=== PATIENT | female | born 1945 | race Caucasian/White ===

== ENCOUNTER → 2016-05-06 | Outpatient (CLI) | payer MEDICARE, OTHER ==
[~2016-05-06] MED LIST: IMMUNE GLOBULIN (HUMAN-IGG) 20 GM in EMPTY BAG 1 BAG IV ONE; SODIUM CHLORIDE 0.9% 250 ML in EMPTY BAG 1 BAG IV PRN; SODIUM CHLORIDE 0.9% 500 ML in EMPTY BAG 1 BAG IV PRN
[2016-05-06 09:16] VITALS: TEMP 98.2
[2016-05-06 09:46] VITALS: PULSE 56
[2016-05-06 10:14] LABS: Anion Gap 12 mmol/L; Blood Urea Nitrogen 19 mg/dL (7-17); Calcium 9.9 mg/dL (8.4-10.2); Carbon Dioxide 28 mmol/L (22-30); Chloride 102 mmol/L (98-107); Glucose 207 mg/dL (74-99); Non-African American GFR(MDRD) >60 (>60 ml/min/1.73 sqM); Potassium 4.2 mmol/L (3.5-5.1); Sodium 142 mmol/L (137-145)
[2016-05-06 10:21] VITALS: BP 133/71; RESP 16
[2016-05-06 13:41] LABS: Calcium 9.8 mg/dL (8.4-10.2); Potassium 4.2 mmol/L (3.5-5.1)
== END | disposition home or self-care (01) ==
LOC: PROCWHC3 08:50
PROVIDERS: ATTEND Psychiatry & Neurology Neurology
DX: G61.81 Chronic inflammatory demyelinating polyneuritis (principal)
CPT/HCPCS: 80048; 96365; 96366; 36591; J1642; J1459

== ENCOUNTER → 2016-06-17 | Outpatient (CLI) | payer MEDICARE, OTHER ==
[2016-06-17 09:13] VITALS: TEMP 98.3
[2016-06-17 09:35] LABS: Basophils # (A) 0.1 k/uL (0-0.2); Basophils % (A) 1 %; CH 31.4; CHCM 35.1; Eosinophils # (A) 0.1 k/uL (0-0.7); Eosinophils % (A) 3 %; HDW 2.98; HGB 12.6 gm/dL (11.4-16.0); Luc # (Auto) 0.17; Luc % (Auto) 4; Lymphocytes # (A) 1.6 k/uL (1.0-4.8); Lymphocytes % (A) 36 %; MCH 30.8 pg (25.0-35.0); MCHC 34.2 g/dL (31.0-37.0); MCV 89.9 fL (80.0-100.0); Mean Platelet Volume 7.4; Monocytes # (A) 0.3 k/uL (0-1.0); Monocytes % (A) 7 %; Neutrophils # (A) 2.2 k/uL (1.3-7.7); Neutrophils % (A) 50 %; RBC 4.11 m/uL (3.80-5.40); RDW 12.8 % (11.5-15.5); WBC 4.4 k/uL (3.8-10.6); WBC (Perox) 4.44
[2016-06-17 09:54] VITALS: BP 138/58; PULSE 47; RESP 16
[2016-06-17 10:02] LABS: ALT 24 U/L (9-52); AST 25 U/L (14-36); Alkaline Phosphatase 170 U/L (38-126); Anion Gap 10 mmol/L; Blood Urea Nitrogen 15 mg/dL (7-17); Calcium 9.6 mg/dL (8.4-10.2); Carbon Dioxide 29 mmol/L (22-30); Chloride 101 mmol/L (98-107); Glucose 119 mg/dL (74-99); Non-African American GFR(MDRD) >60 (>60 ml/min/1.73 sqM); Potassium 4.4 mmol/L (3.5-5.1); Sodium 140 mmol/L (137-145); Total Bilirubin 0.6 mg/dL (0.2-1.3); Total Protein 7.3 g/dL (6.3-8.2); Uric Acid 4.5 mg/dL (3.7-7.4)
[2016-06-17 10:30] LABS: Iron 78 ug/dL (37-170)
[2016-06-17 10:40] LABS: % Iron Saturation 25.8 % (20-50); Total Iron Binding Capacity 302 ug/dL (265-497)
[2016-06-17 11:56] LABS: Appearance,Urine Clear (Clear); Bilirubin,Urine Negative (Negative); Glucose,Urine (UA) Negative (Negative); Ketones,Urine Negative (Negative); Leukocyte Esterase,Urine Small (Negative); Nitrite,Urine Negative (Negative); PH, Urine 6.5 (5.0-8.0); Particle Count 994; Protein,Urine Negative (Negative); Specific Gravity,Urine 1.008 (1.001-1.035); Squamous Epithelial Cell,Urine 1 /hpf (0-4); UA Billing (MACRO vs. MICRO) MICRO; Urobilinogen,Urine <2.0 mg/dL (<2.0); WBC,Urine 1 /hpf (0-5)
[2016-06-17 14:22] LABS: Anion Gap 10 mmol/L; Blood Urea Nitrogen 14 mg/dL (7-17); Calcium 9.7 mg/dL (8.4-10.2); Carbon Dioxide 27 mmol/L (22-30); Chloride 103 mmol/L (98-107); Glucose 134 mg/dL (74-99); Non-African American GFR(MDRD) 53 (>60 ml/min/1.73 sqM); Potassium 4.2 mmol/L (3.5-5.1); Sodium 140 mmol/L (137-145)
== END | disposition home or self-care (01) ==
LOC: PROCWHC3 08:44
PROVIDERS: ATTEND Psychiatry & Neurology Neurology
DX: G61.81 Chronic inflammatory demyelinating polyneuritis (principal); N28.9 Disorder of kidney and ureter, unspecified
CPT/HCPCS: 80053; 80048; 82728; 83540; 83550; 83735; 84100; 84550; 85025; 81001; 82306; 83970; 87086; 96365; 96366; 36591; J1642; J1459

== ENCOUNTER → 2016-08-18 | Outpatient (CLI) | payer MEDICARE, OTHER ==
[2016-08-18 14:08] VITALS: BP 128/61; PULSE 64; RESP 16; TEMP 98.3; BMI 43.1
--- NOTE | 2016-08-18 17:30 | PN ---
CHIEF COMPLAINT: Morbid obesity. INTERVAL HISTORY: Patient has had poor follow-up. She was last seen about a year ago and her band was emptied at that time for other medical issues. She believes that she has a 4 mL band and that she had a total of 4 mL evacuated at that time. The patient has had some weight gain of approximately 10 pounds since last year. She would like to try a band adjustment at this time. PHYSICAL EXAM: Abdomen is soft, nontender, nondistended. IMPRESSION: Morbid obesity. PLAN: Will provide additional lap band adjustment today. A total of 2 mL was added. The patient was unable to tolerate her water at that time and it was backed off to 1 mL. The patient is now tolerating her water without difficulty and will be discharged home with plans for outpatient follow-up in 1 to 2 months.
== END ==
LOC: BARWHC3 13:26
PROVIDERS: ATTEND Surgery
DX: E66.01 Morbid (severe) obesity due to excess calories (principal)
CPT/HCPCS: 99212

== ENCOUNTER 2016-10-26 07:00 | Day surgery (SDC) | payer MEDICARE ==
[2016-10-20 12:44] VITALS: BMI 40.7
[2016-10-26] MEDS ORDERED: LACTATED RINGERS 1,000 ML IV ONE (07:30)
[2016-10-26 07:38] VITALS: RESP 16; TEMP 98
[2016-10-26 07:42] LABS: Glucose,Whole Blood 134 mg/dL (75-99)
--- NOTE | 2016-10-26 08:02 | P.PCN ---
Date of Procedure: 10/26/16 Preoperative Diagnosis: Postoperative Diagnosis: Procedure(s) Performed: Implants: Surgeon: Sunny Camarena Pathology: none sent Condition: stable Disposition: PACU Indications for Procedure: Operative Findings: Description of Procedure: PREOPERATIVE DIAGNOSIS: 1-Bilateral sacroiliitis. 2-Lumbar spondylosis POSTOPERATIVE DIAGNOSIS:. 1-Bilateral sacroiliitis. 2-Lumbar spondylosis PROCEDURES: Bilateral Sacroiliac joint steroid injection with fluoroscopic guidance ANESTHESIA: Local with 1% lidocaine; conscious sedation EBL: Minimal. PROCEDURE INDICATIONS: This patient with a history of low back pain secondary to sacroiliitis and lumbar DDD unresponsive to conservative management. PROCEDURE DESCRIPTION: The patient was seen and identified in the preoperative area. Risks, benefits, complications, and alternatives were discussed with the patient (including but not limited to incomplete pain relief, bleeding, infection, nerve damage, and allergies to medications), the patient agreed to proceed with the procedure and signed the consent after all questions were answered. Patient was taken to the OR and time out was completed to verify proper patient , position, laterality of pain, and allergies. Pt was placed in the prone position and a pillow was placed under the abdomen to reduce lumbar lordosis. The lumbosacral area was prepped and draped in the usual sterile fashion. Critical pause was taken. Vital signs were closely monitored during the procedure. The fluoroscopic camera was placed in contralateral oblique view and right sacroiliiac joint lower pole was identified. After local infiltration with 1% lidocaine 2 ml, Subsequently, a 22-gauge 3.5 inch spinal needle was introduced into the posteroinferior aspect of the right sacroiliac joint under direct fluoroscopic visualization. Subsequently, 3 ml of a solution of a total of 6 ml solution containing total 5 mL of 0.5% preservative-free bupivicaine mixed with 40 mg of Kenalog was injected after negative aspiration for CSF, blood, and air and negative for paresthesia. The entire procedure was repeated on the left side as above. Needle was withdrawn intact. Skin was cleansed, and bandages were applied. COMPLICATIONS: None. COMMENTS: DISPOSITION / PLANS: The patient was placed in a supine position and transferred to the recovery area in a stable condition for observation and was discharged from the recovery room after meeting discharge criteria. Home discharge instructions given to the patient by the staff. The patient was reexamined prior to discharge and there were no issues. The patient will schedule a follow up procedure in 2-4 weeks. Please note that the patient takes daily steroids.
[2016-10-26] MEDS ORDERED: IV FLUID CONTINUATION 1,000 ML IV ONE (08:08)
--- NOTE | 2016-10-26 08:34 | FL ---
EXAMINATION TYPE: FL guided pain mgmt statistic DATE OF EXAM: 10/26/2016 CLINICAL HISTORY: Low back in bilateral sacroiliac joint pain. TECHNIQUE: Fluoroscopy. COMPARISON: None. FINDINGS: Fluoroscopic guidance was provided during pain relief procedure performed by Dr. Camarena . A total of 10 seconds of fluoroscopic time was utilized during the procedure and 3 spot images are ac quired. Images acquired shows needle localization at level of bilateral sacroiliac joints. IMPRESSION: As Above.
[2016-10-26 08:48] VITALS: BP 104/55; PULSE 47
== END 2016-10-26 09:26 | disposition home or self-care (01) ==
LOC: ORPAIN 07:00
PROVIDERS: ATTEND Anesthesiology
DX: M46.1 Sacroiliitis, not elsewhere classified (principal); M47.816 Spondylosis without myelopathy or radiculopathy, lumbar region; M51.36 Other intervertebral disc degeneration, lumbar region; I10 Essential (primary) hypertension; E78.5 Hyperlipidemia, unspecified; K21.9 Gastro-esophageal reflux disease without esophagitis; Z91.048 Other nonmedicinal substance allergy status; Z88.7 Allergy status to serum and vaccine; Z88.0 Allergy status to penicillin; Z88.5 Allergy status to narcotic agent; Z88.8 Allergy status to other drugs, medicaments and biological substances; Z79.52 Long term (current) use of systemic steroids
CPT/HCPCS: 99152; J2250; J3301; Q9965; J3010; G0260

== ENCOUNTER 2016-11-23 07:31 | Day surgery (SDC) | payer MEDICARE ==
[2016-11-17 10:38] VITALS: BMI 40.2
[~2016-11-23 07:31] MED LIST changes: -IMMUNE GLOBULIN (HUMAN-IGG) 20 GM in EMPTY BAG 1 BAG IV ONE; +LACTATED RINGERS 1,000 ML IV SCH; -SODIUM CHLORIDE 0.9% 250 ML in EMPTY BAG 1 BAG IV PRN; -SODIUM CHLORIDE 0.9% 500 ML in EMPTY BAG 1 BAG IV PRN
[2016-11-23 07:54] VITALS: RESP 16; TEMP 97.9
--- NOTE | 2016-11-23 08:37 | P.PCN ---
Date of Procedure: 11/23/16 Preoperative Diagnosis: Postoperative Diagnosis: Procedure(s) Performed: Preoperative diagnoses= 1-bilateral sacroiliitis. 2-lumbar spondylosis Postoperative diagnoses= same as preoperative diagnosis. Procedure= bilateral sacroiliac joint steroid injection under fluoroscopic guidance (.# 2 ) Anesthesia= conscious sedation with Versed 2 mg and fentanyl 100 micrograms and local infiltration with lidocaine 1% 4 ml Estimated blood loss=minimal. Procedure indication= the patient had a history of severe chronic low back pain , diagnosed with sacroiliitis and lumbar spondylosis with lumbosacral facet arthropathy unresponsive to conservative treatment. Procedure description= the patient was seen and identified in the preoperative holding area, risks and benefits and alternative of the procedure and possible complications discussed with the patient, and he agreed with the preceding, patient signed the consent, an IV was started, and vital signs were monitored and were stable throughout the procedure, patient was placed in the prone position or table and the lumbosacral area was prepped and draped with a sterile fashion, vital signs were closely monitored during the procedure, the fluoroscopy camera was placed in the contralateral oblique view on the right sacroiliac joint and the lower part of the joint was identified, local infiltration of the skin and subcutaneous tissue with lidocaine 1% 2 mL then a 22-gauge Quincke-type spinal needle advanced slowly under fluoroscopy and placed in the posterior and inferior border of the right sacroiliac joint, placement confirmed with AP and lateral view, and after appropriate needle placement confirmed and after negative aspiration for heme and CSF and there was no paresthesia during the injection, 3 ml of Marcaine 0.5% and 40 mg of Kenalog injected after negative aspiration, the needle removed, and the entire same procedure was repeated for the left sacroiliac joint Patient tolerated the procedure well without any complication, The patient returned to supine position after the back was cleaned and a Band- Aid applied, the patient transported to recovery room in stable condition and he was monitored for 30 minutes before he was discharged home and then patient was reexamined before going home and patient was discharged in stable condition and patient will follow up with the pain clinic in a few weeks Implants: Indications for Procedure: Operative Findings: Description of Procedure:
[2016-11-23] MEDS ORDERED: IV FLUID CONTINUATION 1,000 ML IV ONE (08:43)
[2016-11-23 08:47] VITALS: PULSE 50
--- NOTE | 2016-11-23 08:57 | FL ---
EXAMINATION TYPE: FL guided pain mgmt statistic DATE OF EXAM: 11/23/2016 COMPARISON: NONE HISTORY: Sacroiliac joint pain TECHNIQUE: Fluoroscopy. FINDINGS/IMPRESSION: Fluoroscopic guidance was provided during procedure performed by Dr. Aguilar. A total of 5 seconds of fluoroscopic time was utilized during the procedure and 2 spot images was ac quired.
[2016-11-23 08:58] VITALS: BP 141/74
== END 2016-11-23 09:57 | disposition home or self-care (01) ==
LOC: ORPAIN 07:31
PROVIDERS: ATTEND Specialist
DX: G89.29 Other chronic pain (principal); M46.1 Sacroiliitis, not elsewhere classified; M47.9 Spondylosis, unspecified; M46.96 Unspecified inflammatory spondylopathy, lumbar region; I10 Essential (primary) hypertension; E78.5 Hyperlipidemia, unspecified; K21.9 Gastro-esophageal reflux disease without esophagitis; G61.0 Guillain-Barre syndrome; Z88.5 Allergy status to narcotic agent; Z88.0 Allergy status to penicillin; Z88.7 Allergy status to serum and vaccine; Z88.8 Allergy status to other drugs, medicaments and biological substances; Z91.048 Other nonmedicinal substance allergy status; Z79.52 Long term (current) use of systemic steroids
CPT/HCPCS: 99152; J2250; J3301; J3010; G0260

== ENCOUNTER → 2017-01-05 | Outpatient (CLI) | payer MEDICARE, OTHER ==
[2017-01-05 11:39] VITALS: BP 130/62; PULSE 67; RESP 16
--- NOTE | 2017-01-05 11:54 | P.PN ---
Progress Note - Text Progress Note Date: 01/05/17 Patient returns for followup for chronic back pain with radiation to hips. Patient recently underwent bilateral SIJ injection x 2, which provided > 80% pain relief since procedure. Patient continues on [place] medications for pain with good relief. Patient denies adverse drug effects from medications. Today , pt denies new-onset weakness, bowel/bladder incontinence, or any other signs or symptoms of cauda equina syndrome. There are no signs of acute intoxication, and no indications of medication diversion or overuse. In addition to above, 13-point review of systems is also negative for chest pain , shortness of breath, changes in vision, changes in hearing, new onset weakness , abdominal pain, diarrhea, extreme fatigue, malaise, fever, skin changes, homicidal or suicidal ideation, or bowel or bladder incontinence. Vital Signs: Reviewed in EMR Gen: WDWN, AAOx3, NAD HEENT: NCAT, EOMI, hearing grossly normal Pulm: resp unlabored Abd: soft, NT, ND Neck: supple, trachea midline ROM in flexion lumbar spine: reduced ROM in extension lumbar spine: reduced Lumbar paravertebral tenderness: + Facet loading: + bilateral SI joint tenderness: + bilateral Long's test: + bilateral Straight leg raise: neg Lower extremity: decreased ROM dorsiflexion/plantarflexion strength, hip flexion/extension, and knee flexion/extension secondary to pain Neuro: CN II-XII grossly intact, muscle strength lower extremities PRESERVED Imaging: Reviewed in EMR Assessment: 1. SIJ dysfunction 2. chronic pain syndrome 3. lumbar PLPS Plan: 1. Explanation: Opioid and psychological risk scores were reviewed. Diagnoses , prognoses, and multiple treatment options including but not limited to physical therapy, interventional therapies, adjuvant medical therapies, narcotic medication therapies, and surgery were discussed with the patient and all questions were answered to the patient's satisfaction. 2. Opioid agreement: no opioids prescribed today 3. Counseling: The patient was counseled extensively on BODY MASS INDEX, EXERCISE. Specifically, the patient was instructed regarding the importance of weight control, and exercise in the context of both chronic pain and overall health. 4. Procedures: none for now 5. Consultations: None 6. Investigations: None 7. Medications: None 8. Disposition: f/u for re-eval in 8 weeks PQRS measures: 1-Patient's medications are documented in the chart. 2-Tobacco use is negative 3-Patient has not had a pneumococcal vaccine. 4-Advanced care planning discussed, patient unable to give. 5-Opioid contract signed with the patient. 6-Pain positive, follow-up visit or procedure scheduled 7-Patient's blood pressure measured and documented, and patient will follow up with the primary care due to hypertension. 8-Patient's weight was measured, and body mass index ABOVE the normal limits, and counseling was done. Patient instructed to follow up with PCP. 9-Patient WAS NOT identified as an unhealthy alcohol user.
== END | disposition home or self-care (01) ==
LOC: PNWHC3 11:02
PROVIDERS: ATTEND Anesthesiology
DX: M96.1 Postlaminectomy syndrome, not elsewhere classified (principal); M53.3 Sacrococcygeal disorders, not elsewhere classified; G89.4 Chronic pain syndrome; Z79.899 Other long term (current) drug therapy
CPT/HCPCS: 99211

== ENCOUNTER 2017-04-13 07:50 | Day surgery (SDC) | payer MEDICARE, OTHER ==
[2017-04-06 15:32] VITALS: BMI 41.9
[2017-04-13 08:15] VITALS: RESP 18; TEMP 98
[2017-04-13] MEDS ORDERED: LACTATED RINGERS 1,000 ML IV ONE (08:32)
[2017-04-13] MEDS ORDERED: LACTATED RINGERS 1,000 ML IV SCH (08:45)
--- NOTE | 2017-04-13 09:19 | P.PCN ---
Date of Procedure: 04/13/17 Surgeon: Sunny Camarena Pathology: none sent Condition: stable Disposition: PACU Description of Procedure: PREOPERATIVE DIAGNOSIS: 1-Bilateral sacroiliitis. POSTOPERATIVE DIAGNOSIS:. 1-Bilateral sacroiliitis. PROCEDURES: RIGHT Sacroiliac joint steroid injection with fluoroscopic guidance ANESTHESIA: Local with 1% lidocaine; conscious sedation EBL: Minimal. PROCEDURE INDICATIONS: This patient with a history of low back pain secondary to RIGHT sacroiliitis and lumbar DDD unresponsive to conservative management; no use of blood thinners. PROCEDURE DESCRIPTION: The patient was seen and identified in the preoperative area. Risks, benefits, complications, and alternatives were discussed with the patient (including but not limited to incomplete pain relief, bleeding, infection, nerve damage, and allergies to medications), the patient agreed to proceed with the procedure and signed the consent after all questions were answered. Patient was taken to the OR and time out was completed to verify proper patient , position, laterality of pain, and allergies. Pt was placed in the prone position and a pillow was placed under the abdomen to reduce lumbar lordosis. The lumbosacral area was prepped and draped in the usual sterile fashion. Critical pause was taken. Vital signs were closely monitored during the procedure. The fluoroscopic camera was placed in contralateral oblique view and right sacroiliiac joint lower pole was identified. After local infiltration with 1% lidocaine 2 ml, subsequently, a 22-gauge 3.5 inch spinal needle was introduced into the posteroinferior aspect of the right sacroiliac joint under direct fluoroscopic visualization. Subsequently, 4 ml of a solution of a total of 4 ml solution containing total 3 mL of 0.5% preservative-free bupivicaine mixed with 40 mg of Kenalog was injected after negative aspiration for CSF, blood, and air and negative for paresthesia. Needle was withdrawn intact. Skin was cleansed, and bandages were applied. COMPLICATIONS: None. COMMENTS: DISPOSITION / PLANS: The patient was placed in a supine position and transferred to the recovery area in a stable condition for observation and was discharged from the recovery room after meeting discharge criteria. Home discharge instructions given to the patient by the staff. The patient was reexamined prior to discharge. The patient will schedule a follow up in clinic in 2-4 weeks.
[2017-04-13] MEDS ORDERED: IV FLUID CONTINUATION 1,000 ML IV ONE (09:27)
[2017-04-13 09:44] VITALS: BP 137/69; PULSE 50
[2017-04-13] MEDS ORDERED: HEPARIN SODIUM,PORCINE 100 UNIT/ML 5 ML VIAL IV ONE (09:56)
--- NOTE | 2017-04-14 13:16 | FL ---
EXAMINATION TYPE: FL guided pain mgmt statistic DATE OF EXAM: 04/13/2017 COMPARISON: NONE HISTORY: Sacroiliac joint pain TECHNIQUE: Fluoroscopy. FINDINGS/IMPRESSION: Fluoroscopic guidance was provided during procedure performed by Dr. Camarena. A total of 18 seconds of fluoroscopic time was utilized during the procedure and 2 spot images was acqu ired.
== END 2017-04-13 10:14 | disposition home or self-care (01) ==
LOC: ORPAIN 07:50
PROVIDERS: ATTEND Anesthesiology
DX: M46.1 Sacroiliitis, not elsewhere classified (principal); M51.36 Other intervertebral disc degeneration, lumbar region; I10 Essential (primary) hypertension; D64.9 Anemia, unspecified; Z79.82 Long term (current) use of aspirin; Z91.041 Radiographic dye allergy status; Z88.0 Allergy status to penicillin; Z88.8 Allergy status to other drugs, medicaments and biological substances; Z91.09 Other allergy status, other than to drugs and biological substances
CPT/HCPCS: J2250; J1642; J3301; Q9965; J3010; G0260; 27096

== ENCOUNTER → 2017-05-13 | Outpatient (CLI) | payer MEDICARE, OTHER ==
[2017-05-13 14:08] VITALS: BP 136/85; PULSE 61; RESP 16
--- NOTE | 2017-05-13 14:59 | P.PN ---
Subjective Progress Note Date: 05/13/17 This is follow-up visit for this patient with a history of severe and chronic low back pain secondary to lumbar degenerative disc disease, lumbar facet arthropathy, and sacroiliitis and sacroiliac joint dysfunction ,we have done , bilateral sacroiliac instability injections 2 , she'll get excellent pain relief for short-term she had more than 80% decrease in her low back pain Currently she is complaining of severe low back pain mainly on the right side , radiated to the buttock area patient currently on [place] 10/325 every 6 hours when necessary , Neurontin 300 mg twice a day Patient denies any side effects of the medication, denies excessive drowsiness or sleepiness, denies suicidal ideation, and reports that the current pain medication is NOT helping To control the pain and improve activity of daily living . Patient denies any motor or sensory deficit, denies change in bowel movement or urination, patient denies any fever or night sweats and patient here for follow-up visit and medication refill Objective - Vital Signs Vital signs: Vital Signs Temp Pulse 61 05/13/17 14:02 Resp 16 05/13/17 14:02 BP 136/85 05/13/17 14:02 Pulse Ox 97 05/13/17 14:02 Intake & Output 05/12/17 05/13/17 05/13/17 18:59 06:59 18:59 Weight 115.666 kg - Exam Physical Examinations : 1-Constitutiona : Cooperative , not in acute distress . 2-HEENT : nech ; supple , no Lymphadenopathy , normal thyroid size . eyes : no ptosis , no icterus, no photophobia . ENT : normal of hearing , normal oropharynx , no Thrush . 3- Respiratory : Chest clear to auscultations Bilaterally , no wheezing , no Rhonchi . 4- Cardiovascular : regular rate and rhythem , S1 , S2 , no S3 , no S4. 5- Gastrointestinal : abdomen soft no tenderness , bowel sounds positive all four quadrents , no organomegally . 6- Genitourinary : Defferred . 7- neurologic : Cranial nerve II to XII intact , no focal neurological deffecit . 8-psychatric : alert , oriented X 3 , appropriate affect , intact judgment and insight . 9-Lymphatic : no Lymphadenopathy . 10- musculoskeltal : , Lumber spine = normal moter stegnth lower extremities ,thigh and legs .5/5 deep tendon reflexes : normal Knee Jerk , normal ankle Jerk . lumber facet Loading Test positive strait leg raising test positive at 30 degree Right , positve at 30 degree Left Fabere test positive Right and positive Left Sever tenderness over the Sacroiliac joint on the Right side Assessment and Plan Plan: Assessment and plan= severe low back pain secondary to lumbar spondylosis, sacroiliac joint steroid injection, sacroiliac joint dysfunction She had excellent pain relief after the bilateral sacroiliac joint steroid injection she had more than 80% decrease in her pain Current 3 she reported that most of her pain in the right side low back area and right buttock area She will be good candidate to have radiofrequency ablation of the right sacroiliac joint , we will schedule her to have radiofrequency ablation of the L5-S1 dorsal ramus , and RFA of the lateral branches of S1 ,S2 and S3 Plan patient should continue her current pain medication [place] 10/325 every 6 hours and Neurontin 300 mg 3 times a day she is getting prescriptions from her primary care Time with Patient: Less than 30
== END | disposition home or self-care (01) ==
LOC: PNWHC3 13:55
PROVIDERS: ATTEND Specialist
DX: M47.816 Spondylosis without myelopathy or radiculopathy, lumbar region (principal); M53.3 Sacrococcygeal disorders, not elsewhere classified; Z79.891 Long term (current) use of opiate analgesic
CPT/HCPCS: 99211

== ENCOUNTER 2017-06-16 07:54 | Day surgery (SDC) | payer MEDICARE, OTHER ==
[2017-06-14 09:02] VITALS: BMI 43.2
[2017-06-16 08:47] VITALS: TEMP 98.1
[2017-06-16] MEDS ORDERED: IV FLUID CONTINUATION 1,000 ML IV ONE (09:55)
[2017-06-16 10:08] VITALS: RESP 16
--- NOTE | 2017-06-16 10:12 | FL ---
EXAMINATION TYPE: FL guided pain mgmt statistic DATE OF EXAM: 06/16/2017 COMPARISON: NONE HISTORY: Radiofrequency right lumbar right back pain. TECHNIQUE: Fluoroscopy. FINDINGS/IMPRESSION: Fluoroscopic guidance was provided during procedure performed by Dr. Aguilar. A total of 50 seconds of fluoroscopic time was utilized during the procedure and 8 spot images was a cquired.
[2017-06-16 10:21] VITALS: BP 129/79; PULSE 56
--- NOTE | 2017-06-16 10:31 | P.PCN ---
Date of Procedure: 06/16/17 Procedure(s) Performed: PREOPERATIVE DIAGNOSIS: 1-Lumbosacral spondylosis with facet arthropathy without myelopathy. 2- sacroiliit. 3-sacroiliac joint dysfunction. post operative Diagnosis: Same as Diagnoses. PROCEDURES: 1- Right radiofrequency thermocoagulation/ablation of the L5 dorsal ramus. 2- Right multi-site radiofrequency thermocoagulation/ablation of the S1, S2, lateral branchs. The procedure was performed using fluoroscopic guidance during needle placement to assure proper position and maximize safety . ANESTHESIA: LOCAL ANESTHESIA = moderate sedation with intravenous versed 2 mg and Fentanyle 100 mcg EBL: NONE INDICATION/MEDICAL NECESSITY: History of low back pain secondary to bilateral sacroiliitis and lumbosacral arthropathy unresponsive to more conservative treatments. The patient reported more than 50% relief of pain symptoms following 2 previous diagnostic blocks with Bupivacaine. PROCEDURE DESCRIPTION: The patient was seen and identified in the preoperative area. Risks, benefits, complications, and alternatives were discussed with the patient. The patient agreed to proceed with the procedure and signed the consent. Vital signs were checked before and after the procedure and they remained stable. Patient ambulated to the procedure room and time out was completed. The patient was placed in the prone position on the procedure table and a pillow was placed under the abdomen to reduce lumbar lordosis. The lumbosacral area was prepped and draped in the usual sterile fashion. Critical pause was taken. L5 Dorsal Ramus RF: Using right oblique fluoroscopy, the junction of the transverse process and the superior articular process of the right S1 vertebra, which correspond to the fluoroscopic image of the "eye of the Rodríguez dog" was identified. Subsequently, a 15-cm 20 -gauge radiofrequency cannula with a 10-mm active tip was advanced under fluoroscopic guidance until contact was made with periosteum. At this level, the Sensory testing of the L5 dorsal ramus was performed at 50 Hz and 0 to 1 volt with production of concordant pain starting at 0.5 volt. Motor stimulation was done at 2.5 Hz with stimulation of mulitifidus muscle contration . No radicular symptoms or paresthesias were produced during the testing. Subsequently, the L5 dorsal ramus was subjected to a radiofrequency ablation at 80 degree celsius for 90 seconds . after 0.5% Bupivacaine 1 ml injected at each level after negative aspirations . The needle was withdrawn intact . . S1, S2 Lateral Branch RF: The lateral margins of the Right S1, S2, foramina were identified using AP fluoroscopy. Under fluoroscopic guidance, three 10-cm 20 -gauge radiofrequency cannula with a 10-mm active tip were inserted at 8-10 mm peripheral to the posterior S1 foramen, at various locations using clock-face coordinates. The center of the clock was registered at the lateral margin of the foramen. The 2: 30, 4:00, and 5:30 oclock positions were used. At this level, the sensory testing of the S1 lateral branch was performed at 50 Hz and 0 to 1 volt at the three levels with production of concordant pain starting at 0.5 volt. Motor stimulation was done at 2.5 Hz. No radicular symptoms or paresthesias were produced during the testing. Subsequently, the S1 lateral branch was subjected to a radiofrequency ablation at a mode of 90 seconds at 80 degrees Celsius at the 3 levels after negative motor and sensory testing and after injecting 0.5 ml of preservative free Bupivacaine 0.5 %. The same procedure was performed at the level of the S2 foramen. (I was not able to visualize the S3 foraminal for this reason the radiofrequency of the lateral branches of S3 was not done ) COMPLICATIONS: The patient tolerated the procedure well without any acute complications. DISPOSTION/PLAN: The patient ambulated to the recovery area after the procedure in a stable condition for observation. Patient was reexamined prior to discharge. Patient was observed for 30 minutes in the recovery area and was discharged home, accompanied by an adult, after meeting discharged criteria. Discharge instructions were give to the patient by the staff. Patient was specifically instructed not to drive today and to rest for the rest of the day. The patient will schedule a follow up visit in the clinic in weeks or earlier if needed.
== END 2017-06-16 10:45 | disposition home or self-care (01) ==
LOC: ORPAIN 07:54
PROVIDERS: ATTEND Specialist
DX: M47.817 Spondylosis without myelopathy or radiculopathy, lumbosacral region (principal); M46.1 Sacroiliitis, not elsewhere classified; M53.3 Sacrococcygeal disorders, not elsewhere classified; M96.1 Postlaminectomy syndrome, not elsewhere classified; I10 Essential (primary) hypertension; M19.90 Unspecified osteoarthritis, unspecified site; G61.0 Guillain-Barre syndrome; K21.9 Gastro-esophageal reflux disease without esophagitis; E03.9 Hypothyroidism, unspecified; Z88.5 Allergy status to narcotic agent; Z88.0 Allergy status to penicillin; Z88.7 Allergy status to serum and vaccine; Z88.8 Allergy status to other drugs, medicaments and biological substances; Z91.09 Other allergy status, other than to drugs and biological substances
CPT/HCPCS: 64640 ×2; 64635; J2250; J3301; J1642; J3010; 99152; 99153

== ENCOUNTER → 2017-07-22 | Outpatient (CLI) | payer MEDICARE, OTHER ==
[2017-07-22 11:56] VITALS: BP 153/83; PULSE 56; RESP 16
--- NOTE | 2017-07-22 12:19 | P.PN ---
Subjective Progress Note Date: 07/22/17 Principal diagnosis: Postlaminectomy pain syndrome Bilateral sacroiliitis This is a 72-year-old female with history of back surgery that was done in 2014 and pain that starts in the right buttock and goes across her lower back and down her right leg to the right knee with burning sensation. The patient had RFA on both sacroiliac joints which gave her only a few days of pain relief as she states. Her pain is mostly when she walks for too long and twist back. She has been taking [place] by her primary care physician. She also has a history of Guillain-Nieto and for the last 6 weeks she's been feeling some "feathery" sensation in her legs. Objective - Vital Signs Vital signs: Vital Signs Temp Pulse 56 L 07/22/17 11:46 Resp 16 07/22/17 11:46 BP 153/83 07/22/17 11:46 Pulse Ox 96 07/22/17 11:46 Intake & Output 07/21/17 07/22/17 07/22/17 18:59 06:59 18:59 Weight 115.666 kg - Constitutional General appearance: Present: morbidly obese - EENT Eyes: Present: PERRLA - Respiratory Respiratory: bilateral: CTA - Cardiovascular Rhythm: regular - Neurologic Neurologic: Present: CNII-XII intact - Psychiatric Psychiatric: Present: A&O x's 3, appropriate affect, intact judgment & insight ( Neuro exam of the lower extremities showed normal muscle strength for knee flexion and extension and ankle flexion and extension. She has absent deep tendon reflexes in the lower extremities bilaterally and symmetrically. 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 The procedure was explained to the patient and her questions were answered. Time with Patient: Less than 30
== END | disposition home or self-care (01) ==
LOC: PNWHC3 11:25
PROVIDERS: ATTEND Anesthesiology
DX: M96.1 Postlaminectomy syndrome, not elsewhere classified (principal); E66.01 Morbid (severe) obesity due to excess calories; Z86.2 Personal history of diseases of the blood and blood-forming organs and certain disorders involving the immune mechanism; Z79.891 Long term (current) use of opiate analgesic
CPT/HCPCS: 99211

== ENCOUNTER → 2018-04-08 | Outpatient (CLI) | payer MEDICARE, OTHER ==
[~2018-04-08] MED LIST changes: +IMMUNE GLOBULIN IV NR; -LACTATED RINGERS 1,000 ML IV SCH; +SODIUM CHLORIDE 0.9% 500 ML 500 ML in EMPTY BAG 1 BAG IV PRN
[2018-04-08 09:28] VITALS: RESP 16; TEMP 97.9
[2018-04-08 09:57] VITALS: BP 118/70; PULSE 56
[2018-04-08 12:30] LABS: T4, Free (Free Thyroxine) 1.39 ng/dL (0.78-2.19)
== END ==
LOC: PROCWHC3 08:52
PROVIDERS: ATTEND Psychiatry & Neurology Neurology
DX: G61.81 Chronic inflammatory demyelinating polyneuritis (principal)
CPT/HCPCS: 84439; 80061; 84443; 96365; 96366; 36591; J1642; J1459

== ENCOUNTER → 2018-05-12 | Outpatient (CLI) | payer MEDICARE, OTHER ==
--- NOTE | 2018-05-12 16:29 | BD ---
EXAMINATION TYPE: Axial Bone Density DATE OF EXAM: 05/12/2018 COMPARISON: NONE CLINICAL HISTORY: 72 YR OLD FEMALE....ICD-10 CODE: OSTEOPOROSIS SCREENING. Height: 63.2 Weight: 251 FRAX RISK QUESTIONS: Glucocorticoids (More than 3mos): YES (Ex: prednisone, prednisolone, methylprednisolone, dexamethasone, and hydrocortisone). RISK FACTORS HISTORY OF: Surgery to Spine L/S SPINE SURG...WITH RODS AND SCREWS...LAST SURG 2016 Postmenopausal woman: 50 YRS OLD Lost more than 2 inches in height since high school: YES Frequent falls: UNSTEADY, USES WALKER MEDICATIONS: Prednisone or other steroids: YES, PREDNISON....FOR YRS, CHRONIC INFLAMATION, Thyroid Medications: YES, SYNTHROID, FOR ABOUT 15 + YRS Additional Medications: BP MEDS, VIT D, PAIN MEDS, Additional History: HX OF KIDNEY FAILURE...OK NOW, EM GABRIELA SYNDROME, CIPD, EXAM MEASUREMENTS: Bone mineral densitometry was performed using the vWise System. SPINE NOT SCANNED Bone mineral density about the R hip (g/cm2): 0.9222 Bone mineral density about the L hip (g/cm2): 0.949 T Score values are as follows: -----R Neck: -0.6 -----L Neck: -0.9 -----R Total: -0.7 -----L Total: -0.5 Bone mineral density FIRST BONE DENSITY SCAN......BASELINE STUDY FRAX%s: THERE IS A 11.8% CHANCE FOR A MAJOR OSTEOPOROTIC FX AND A 1.3% FOR HIP....PROBABILITY OF F X IN 10 YRS TIME Bone mineral density about the L Wrist (g/cm2): 0.702 T Score values are as follows: -----Dist. R+U: 1.2 -----Prox. R+U: 0.0 -----Radius total: 0.8 Bone mineral density BASELINE STUDY IMPRESSION: Normal (Values between +1 and -1 indicate normal bone mass). Consider repeating this study in 5 year s or sooner if there is some new clinical indication. NOTE: T-SCORE=SD OF THE YOUNG ADULT MEAN.
--- NOTE | 2018-05-16 08:13 | MM ---
Reason for exam: screening (asymptomatic). Last mammogram was performed 3 years ago. History: Patient is postmenopausal. Physical Findings: A clinical breast exam by your physician is recommended on an annual basis and results should be correlated with mammographic findings. MG Screening Mammo w CAD Bilateral CC, MLO, and XCCL view(s) were taken. Prior study comparison: May 08, 2015, bilateral MG screening mammo w CAD. November 03, 2011, bilateral digital screening mammo w/CAD. The breast tissue is heterogeneously dense. This may lower the sensitivity of mammography. No significant changes when compared with prior studies. ASSESSMENT: Benign, BI-RAD 2 RECOMMENDATION: Routine screening mammogram of both breasts in 1 year.
== END | disposition home or self-care (01) ==
LOC: RADBDWWP 08:00
PROVIDERS: ATTEND Internal Medicine
DX: Z12.31 Encounter for screening mammogram for malignant neoplasm of breast (principal); Z13.820 Encounter for screening for osteoporosis
CPT/HCPCS: 77067; 77080

== ENCOUNTER → 2018-05-20 | Outpatient (CLI) | payer MEDICARE, OTHER ==
[2018-05-20 09:35] VITALS: TEMP 97.9
[2018-05-20 09:51] VITALS: BP 113/58; PULSE 49; RESP 18
[2018-05-20 10:53] LABS: Basophils % (A) 1 %; Eosinophils # (A) 0.1 k/uL (0-0.7); Eosinophils % (A) 1 %; HCT 39.1 % (34.0-46.0); HGB 13.2 gm/dL (11.4-16.0); Lymphocytes # (A) 1.1 k/uL (1.0-4.8); Lymphocytes % (A) 22 %; MCH 31.3 pg (25.0-35.0); MCHC 33.9 g/dL (31.0-37.0); MCV 92.2 fL (80.0-100.0); Mean Platelet Volume 7.3; Monocytes # (A) 0.3 k/uL (0-1.0); Monocytes % (A) 6 %; Neutrophils # (A) 3.3 k/uL (1.3-7.7); Neutrophils % (A) 68 %; Platelet Count 197 k/uL (150-450); RBC 4.24 m/uL (3.80-5.40); RDW 13.3 % (11.5-15.5); WBC 4.8 k/uL (3.8-10.6)
[2018-05-20 11:17] LABS: Appearance,Urine Clear (Clear); Bilirubin,Urine Negative (Negative); Blood,Urine Negative (Negative); Color,Urine Colorless; Glucose,Urine (UA) Negative (Negative); Ketones,Urine Negative (Negative); Leukocyte Esterase,Urine Negative (Negative); Nitrite,Urine Negative (Negative); Protein,Urine Negative (Negative); Specific Gravity,Urine 1.006 (1.001-1.035); Urobilinogen,Urine <2.0 mg/dL (<2.0)
[2018-05-20 11:55] LABS: Uric Acid 4.2 mg/dL (3.7-7.4)
[2018-05-20 11:56] LABS: Albumin 4.5 g/dL (3.5-5.0); Calcium 10.1 mg/dL (8.4-10.2); Magnesium 1.8 mg/dL (1.6-2.3); Phosphorus 2.9 mg/dL (2.5-4.5); Potassium 4.7 mmol/L (3.5-5.1)
[2018-05-20 17:35] LABS: Iron Saturation 30.79 (12.00-45.00)
[2018-05-20 17:44] LABS: Vitamin D 25 Hydroxy 54.7 ng/mL (30.0-100.0)
[2018-05-20 19:22] LABS: Parathyroid Hormone Intact 103.9 pg/mL (14.0-72.0)
== END ==
LOC: PROCWHC3 08:24
PROVIDERS: ATTEND Psychiatry & Neurology Neurology
DX: N39.0 Urinary tract infection, site not specified (principal); M10.9 Gout, unspecified; N25.81 Secondary hyperparathyroidism of renal origin; D63.1 Anemia in chronic kidney disease; N18.2 Chronic kidney disease, stage 2 (mild); E55.9 Vitamin D deficiency, unspecified; G61.81 Chronic inflammatory demyelinating polyneuritis
CPT/HCPCS: 80048; 82728; 82040; 83540; 83550; 83735; 84100; 84550; 85025; 81003; 82306; 83970; 87086; 96365; 96366; 36591; J1642; J1459

== ENCOUNTER → 2018-07-06 | Outpatient (CLI) | payer MEDICARE, OTHER ==
[2018-07-06 08:49] VITALS: RESP 16; TEMP 97.9
[2018-07-06 09:28] VITALS: BP 117/68; PULSE 53
== END ==
LOC: PROCWHC3 08:33
PROVIDERS: ATTEND Psychiatry & Neurology Neurology
DX: G61.81 Chronic inflammatory demyelinating polyneuritis (principal)
CPT/HCPCS: 96365; 96366; J1642; J1459

== ENCOUNTER → 2018-08-17 | Outpatient (CLI) | payer MEDICARE, OTHER ==
[~2018-08-17] MED LIST changes: +IMMUNE GLOBULIN 40 GM/400 ML IV ONE; -IMMUNE GLOBULIN IV NR; +IMMUNE GLOBULIN IV ONE
[2018-08-17 09:13] VITALS: RESP 16; TEMP 97.8
[2018-08-17 09:33] LABS: Calcium 9.8 mg/dL (8.4-10.2); Potassium 4.6 mmol/L (3.5-5.1)
[2018-08-17 09:35] VITALS: BP 110/64; PULSE 62
[2018-08-17 13:29] LABS: Calcium 9.6 mg/dL (8.4-10.2); Potassium 4.6 mmol/L (3.5-5.1)
== END | disposition home or self-care (01) ==
LOC: PROCWHC3 08:45
PROVIDERS: ATTEND Psychiatry & Neurology Neurology
DX: G61.81 Chronic inflammatory demyelinating polyneuritis (principal)
CPT/HCPCS: 80048; 96365; 96366; 36415; J1642; J1459 ×2

== ENCOUNTER → 2018-09-26 | Outpatient (CLI) | payer MEDICARE, OTHER ==
[~2018-09-26] MED LIST changes: -IMMUNE GLOBULIN 40 GM/400 ML IV ONE; +IMMUNE GLOBULIN IV NR; -IMMUNE GLOBULIN IV ONE
[2018-09-26 08:48] VITALS: TEMP 97.7
[2018-09-26 09:35] VITALS: BP 107/66; PULSE 45; RESP 15
[2018-09-26 10:07] LABS: Basophils # (A) 0.1 k/uL (0-0.2); Basophils % (A) 1 %; Eosinophils # (A) 0.1 k/uL (0-0.7); Eosinophils % (A) 2 %; HCT 37.5 % (34.0-46.0); HGB 12.4 gm/dL (11.4-16.0); Lymphocytes # (A) 1.4 k/uL (1.0-4.8); Lymphocytes % (A) 28 %; MCH 30.2 pg (25.0-35.0); MCHC 33.1 g/dL (31.0-37.0); MCV 91.3 fL (80.0-100.0); Mean Platelet Volume 7.6; Monocytes # (A) 0.3 k/uL (0-1.0); Monocytes % (A) 6 %; Neutrophils % (A) 61 %; Platelet Count 215 k/uL (150-450); WBC 4.9 k/uL (3.8-10.6)
[2018-09-26 10:27] LABS: Appearance,Urine Cloudy (Clear); Bacteria,Urine Rare /hpf; Bilirubin,Urine Negative (Negative); Blood,Urine Negative (Negative); Color,Urine Yellow; Glucose,Urine (UA) Negative (Negative); Ketones,Urine Negative (Negative); Leukocyte Esterase,Urine Large (Negative); Mucus,Urine Rare /hpf; Nitrite,Urine Negative (Negative); PH, Urine 5.5 (5.0-8.0); Protein,Urine Negative (Negative); Specific Gravity,Urine 1.014 (1.001-1.035); Squamous Epithelial Cell,Urine 5 /hpf (0-4); Urobilinogen,Urine <2.0 mg/dL (<2.0); WBC,Urine 16 /hpf (0-5)
[2018-09-26 10:39] LABS: T4, Free (Free Thyroxine) 1.31 ng/dL (0.78-2.19)
[2018-09-26 11:05] LABS: Albumin 4.3 g/dL (3.5-5.0); Calcium 9.7 mg/dL (8.4-10.2); Magnesium 2.1 mg/dL (1.6-2.3); Phosphorus 3.7 mg/dL (2.5-4.5); Potassium 4.2 mmol/L (3.5-5.1); Total Bilirubin 0.4 mg/dL (0.2-1.3); Total Protein 7.3 g/dL (6.3-8.2); Uric Acid 4.8 mg/dL (3.7-7.4)
[2018-09-26 11:20] LABS: Creatinine,Urine Random 61.6 mg/dL
[2018-09-26 13:15] LABS: Calcium 9.6 mg/dL (8.4-10.2); Potassium 4.5 mmol/L (3.5-5.1)
[2018-09-26 16:26] LABS: Iron Saturation 28.57 (12.00-45.00)
[2018-09-26 16:32] LABS: Vitamin D 25 Hydroxy 38.2 ng/mL (30.0-100.0)
[2018-09-26 18:10] LABS: Hemoglobin A1C 6.8 % (4.0-6.0)
[2018-09-26 20:09] LABS: Parathyroid Hormone Intact 142.1 pg/mL (14.0-72.0)
== END ==
LOC: PROCWHC3 08:15
PROVIDERS: ATTEND Psychiatry & Neurology Neurology
DX: N18.2 Chronic kidney disease, stage 2 (mild) (principal); D63.1 Anemia in chronic kidney disease; I12.9 Hypertensive chronic kidney disease with stage 1 through stage 4 chronic kidney disease, or unspecified chronic kidney disease; N39.0 Urinary tract infection, site not specified; E21.3 Hyperparathyroidism, unspecified; E55.9 Vitamin D deficiency, unspecified; M10.9 Gout, unspecified; E78.5 Hyperlipidemia, unspecified; E11.22 Type 2 diabetes mellitus with diabetic chronic kidney disease; R80.9 Proteinuria, unspecified; G61.81 Chronic inflammatory demyelinating polyneuritis
CPT/HCPCS: 84439; 82570; 80061; 80053; 80048; 84156; 82550; 83540; 83550; 83735; 84100; 84443; 84550; 85025; 81001; 82306; 83970; 83036; 96365; 96366; 36591; J1642; J1459

== ENCOUNTER → 2018-11-03 | Outpatient (CLI) | payer MEDICARE, OTHER ==
[~2018-11-03] MED LIST changes: -IMMUNE GLOBULIN IV NR; +IMMUNE GLOBULIN IV ONE
[2018-11-03 09:17] VITALS: RESP 16; TEMP 98.2
[2018-11-03 09:41] VITALS: BP 118/71; PULSE 50
[2018-11-03 10:21] LABS: Calcium 9.6 mg/dL (8.4-10.2); Potassium 4.1 mmol/L (3.5-5.1)
[2018-11-03 14:34] LABS: Calcium 9.4 mg/dL (8.4-10.2)
== END ==
LOC: PROCWHC3 08:40
PROVIDERS: ATTEND Psychiatry & Neurology Neurology
DX: G61.81 Chronic inflammatory demyelinating polyneuritis (principal)
CPT/HCPCS: 80048; 96365; 96366; 36591; J1642; J1459

== ENCOUNTER → 2018-12-01 | Outpatient (CLI) | payer MEDICARE, OTHER ==
[2018-12-01 12:00] VITALS: BP 111/76; PULSE 84; RESP 16
--- NOTE | 2018-12-04 17:20 | P.PAINPG ---
Subjective Progress Note Date: 12/01/18 This is a 73-year-old female with history of Guillian Bare syndrome (IVIG Q6 weeks) and back surgery that was done in 2015 and pain that starts in the right buttock and goes across her lower back and down her right leg to the right knee with burning sensation. The patient has undergone SI joint injections and RFA in the past. She isn't entirely sure but on discussion, it appears that the SI joint steroid injection provided more relief than RFA. Medications include gabapentin 30mg TID prescribed asnd norco 10mg TID by PCP, Dr. REYNA Her pain is mostly when she walks for too long and twist back. She completed PT in 2016 and does HEP, however not focused on low back. Review of systems is negative for chest pain, shortness of breath, new onset weakness, numbness/tingling, abdominal pain, malaise, fever, night sweats, chills, homicidal or suicidal ideation, or bowel incontinence. She has chronic stress incontinence. Physical Exam Vitals: Reviewed in EMR GENERAL: Well appearing, in no acute distress, uses a 4 wheel walker, obese PSYCH: Mood and affect is appropriate. Awake, alert, and oriented SKIN: Skin color, texture, turgor normal, no rashes or lesions HEENT: Normocephalic, atraumatic. EOM intact CV: No pedal edema RESP: Respirations are unlabored, no audible wheezing GI: Abdomen non-distended MUSCULOSKELETAL: Bilateral upper and lower extremity strength is normal and symmetric. No atrophy or tone abnormalities are noted. Lumbar spine: Straight leg raising in the sitting position is negative for radicular pain. Pain to palpation over the bilateral lumbar paraspinous muscles. POassitive facet loading bilaterally Limited lumbar flexion and extension Buttocks: Pain to palpation over the right PSIS, RAMSEY is positive for pain on the right, sacral thrust positive on right, Gaenslin's test positive on right. Extremities: Peripheral joint ROM is full and pain free without obvious instability or laxity in all four extremities. No edema or skin discolorations noted. Gait: Gait is slow NEUR: Bilateral lower extremity coordination and muscle stretch reflexes are physiologic and symmetric. No ankle clonus. No loss of sensation is noted. Assessment and Plan Assessment: This is a 72-year-old female with: Failed back surgery syndrome Postlaminectomy pain syndrome Bilateral sacroiliitis Morbid obesity History of Guillain-Nieto I will schedule the patient to have right SI joint injection. The procedure was explained to the patient and her questions were answered. Will send the patient to PT to focus on low back strengthening, core strengthening, SI joint exercises Encouraged to discuss possibly switching gabapentin to lyrica/other neuropathic drugs as patient is unlikely to tolerate dose increase to gabapentin d/t side effects in the form of unsteadiness. Objective - Vital Signs Vital signs: Vital Signs Temp Pulse 84 12/01/18 11:53 Resp 16 12/01/18 11:53 BP 111/76 12/01/18 11:53 Pulse Ox 95 12/01/18 11:53 PQRS Measure Charge Sheet Measure #130: Documentation of Current Meds in Medical Chart: Patient's medications documented in chart Measure #226: Tobacco Use: Screen & Cessation Intervention: Pt not a tobacco user Measure #111: Pneumonia Vaccination: Pneumococcal vaccine NOT administered or previously given Measure #412: Opioid Treatment Agreement: No documentation of signed opioid treatment agreement Measure #317: Preventitive Care & Scrn High Bld Press & F/U: Normal blood pressure, f/u not required Measure #128: Body Mass Index (BMI) Screening & Follow-up: BMI documented ABOVE normal parameters - f/u documented Measure #131: Pain Assessment & Follow-up: Pain positive & plan documented PQRS Narrative: Smoking Status Never smoker Blood Pressure 111/76 Pain Intensity [Right Lower 5 Back] Scale Used Numeric (1 - 10) Hx Alcohol Use (MH) No Home Medications: Ambulatory Orders Montelukast Sodium [Singulair] 10 mg PO HS 01/01/14 Sotalol HCl [Sotalol] 80 mg PO DAILY 01/01/14 amLODIPine BESYLATE [Amlodipine Besylate] 10 mg PO HS 01/01/14 Aspirin 81 mg PO DAILY 11/12/14 Gabapentin 300 mg PO BID 08/06/15 Levothyroxine Sodium [Levoxyl] 175 mcg PO DAILY 08/06/15 Omeprazole 20 mg PO AC-BRKFST 08/06/15 Ferrous Sulfate [Iron (65 MG Elemental)] 65 mg PO SUWE 09/11/15 Furosemide [Lasix] 40 mg PO DAILY 10/11/15 Losartan Potassium 50 mg PO DAILY 10/11/15 Potassium Chloride ER [K-Dur 10] 40 meq PO DAILY 10/11/15 HYDROcodone/APAP 10-325MG [[place] 10-325] 1 tab PO Q6HR PRN 10/20/16 Calcitriol 0.25 mcg PO MATT 04/06/17 Metolazone [Zaroxolyn] 2.5 mg PO DAILY 08/04/17 Cetirizine HCl [Zyrtec] 10 mg PO DAILY 11/03/18 Controlled Substance Measures - Controlled Substance Measures Is patient prescribed a controlled substance at discharge?: No
== END | disposition home or self-care (01) ==
LOC: PNWHC3 11:39
PROVIDERS: ATTEND Anesthesiology
DX: M96.1 Postlaminectomy syndrome, not elsewhere classified (principal); M46.1 Sacroiliitis, not elsewhere classified; E66.01 Morbid (severe) obesity due to excess calories; G61.0 Guillain-Barre syndrome; Z79.899 Other long term (current) drug therapy; Z79.82 Long term (current) use of aspirin; Z79.891 Long term (current) use of opiate analgesic
CPT/HCPCS: 99211

== ENCOUNTER 2018-12-06 09:25 | Day surgery (SDC) | payer MEDICARE, OTHER ==
[~2018-12-06 09:25] MED LIST changes: -IMMUNE GLOBULIN IV ONE; +LACTATED RINGERS 1,000 ML IV SCH; -SODIUM CHLORIDE 0.9% 500 ML 500 ML in EMPTY BAG 1 BAG IV PRN
[2018-12-06 09:56] VITALS: RESP 16; TEMP 97.3
--- NOTE | 2018-12-06 10:20 | P.PCN ---
Date of Procedure: 12/06/18 Description of Procedure: Preoperative diagnoses: 1. Lumbosacral Spondylosis 2. Sacroiliitis. Postoperative diagnoses: Same as preoperative diagnosis. Procedure: Right sacroiliac joint steroid injection under fluoroscopic guidance. Surgeon: Dereje Montilla M.D. Anesthesia: local infiltration with lidocaine 1% 4 ml EBL: None Procedure indication: The patient had a history of severe chronic low back pain, diagnosed with sacroiliitis and lumbar sacral facet arthropathy unresponsive to conservative treatment. Procedure description: The patient was seen and identified in the preoperative holding area, risks and benefits and alternative of the procedure and possible complications discussed with the patient, and he agreed with the preceding, patient signed the consent, an IV was started, and vital signs were monitored and were stable throughout the procedure, patient was placed in the prone position or table and the lumbosacral area was prepped and draped with a sterile fashion, vital signs were closely monitored during the procedure, the fluoroscopy camera was placed in the contralateral oblique view on the right sacroiliac joint and the lower part of the joint was identified a 2 mL then a 25-gauge Quincke-type spinal needle advanced slowly under fluoroscopy and placed in the posterior and inferior border of the right sacroiliac joint, placement confirmed with AP and lateral view, and after appropriate needle placement confirmed and after negative aspiration for heme and CSF and there was , 1.5 ML of ropivacaine 0.5% and 40 mg of Kenalog injected after negative aspiration, no paresthesia during the injection, no resistance to injection, and the needle was removed. Patient tolerated the procedure well without any complication. The patient returned to supine position after the back was cleaned and a Band- Aid applied, the patient transported to recovery room in stable condition and he was monitored for 30 minutes before he was discharged home and then patient was reexamined before going home and patient was discharged in stable condition and patient will follow up with the pain clinic in a few weeks Images saved and start
[2018-12-06 10:42] VITALS: BP 153/74; PULSE 58
--- NOTE | 2018-12-06 10:45 | FL ---
Fluoroscopy HISTORY: Pain 5 seconds fluoroscopy time supplied to the referring clinician. 1 intraoperative C-arm images docume nt the procedure. See dictated report from anesthesia.
== END 2018-12-06 11:00 | disposition home or self-care (01) ==
LOC: ORPAIN 09:25
PROVIDERS: ATTEND Anesthesiology
DX: G89.29 Other chronic pain (principal); M46.1 Sacroiliitis, not elsewhere classified; M47.817 Spondylosis without myelopathy or radiculopathy, lumbosacral region; M96.1 Postlaminectomy syndrome, not elsewhere classified; E66.01 Morbid (severe) obesity due to excess calories; N39.3 Stress incontinence (female) (male); Z86.69 Personal history of other diseases of the nervous system and sense organs; Z99.89 Dependence on other enabling machines and devices; Z79.890 Hormone replacement therapy; Z79.82 Long term (current) use of aspirin; Z79.899 Other long term (current) drug therapy; Z68.41 Body mass index [BMI] 40.0-44.9, adult
CPT/HCPCS: J3301; Q9966; G0260; 27096

== ENCOUNTER → 2018-12-16 | Outpatient (CLI) | payer MEDICARE, OTHER ==
[~2018-12-16] MED LIST changes: +IMMUNE GLOBULIN IV NR; -LACTATED RINGERS 1,000 ML IV SCH; +SODIUM CHLORIDE 0.9% 500 ML 500 ML in EMPTY BAG 1 BAG IV PRN
[2018-12-16 08:55] VITALS: RESP 16
[2018-12-16 09:16] VITALS: TEMP 98
[2018-12-16 09:33] VITALS: BP 128/75; PULSE 49
[2018-12-16 09:41] LABS: Calcium 9.4 mg/dL (8.4-10.2); Potassium 3.9 mmol/L (3.5-5.1)
[2018-12-16 14:02] LABS: Calcium 9.4 mg/dL (8.4-10.2); Potassium 4.4 mmol/L (3.5-5.1)
== END | disposition home or self-care (01) ==
LOC: PROCWHC3 08:24
PROVIDERS: ATTEND Psychiatry & Neurology Neurology
DX: G61.81 Chronic inflammatory demyelinating polyneuritis (principal)
CPT/HCPCS: 80048; 96365; 96366; 36591; J1642; J1459

== ENCOUNTER → 2019-01-03 | Outpatient (CLI) | payer MEDICARE, OTHER ==
[2019-01-03 13:43] VITALS: BP 153/88; PULSE 54; RESP 18
--- NOTE | 2019-01-03 15:34 | P.PAINPG ---
Subjective Progress Note Date: 01/03/19 This is 73-year-old female with a history of the Guillan Bare. She has been followed in our clinic for SI joint pain. She has had both the SI joint steroid injections and RFA, she appears to respond better to the SI joint steroid injections. Today she returns from follow-up after right SI joint injection, and she has started on physical therapy. She wanted to know what her next steps in her plan are, at this time she is doing relatively well. She does state if he is in the wrong position she can get a sharp pain in the SI joint area. Objective - Vital Signs Vital signs: Vital Signs Temp Pulse 54 L 01/03/19 13:33 Resp 18 01/03/19 13:33 BP 153/88 01/03/19 13:33 Pulse Ox 97 01/03/19 13:33 Intake & Output 01/02/19 01/03/19 01/03/19 18:59 06:59 18:59 Weight 111.13 kg - Exam Vital Signs: Reviewed in EMR GENERAL: Well appearing, in no acute distress, PSYCH: Mood and affect is appropriate. Awake, alert, and oriented SKIN: Skin color, texture, turgor normal, no rashes or lesions HEENT: Normocephalic, atraumatic. EOM intact CV: No pedal edema RESP: Respirations are unlabored, no audible wheezing GI: Abdomen non-distended MUSCULOSKELETAL: Bilateral upper and lower extremity strength is normal and symmetric. No atrophy or tone abnormalities are noted. Buttocks: Positive for finger sign, positive Jr's, Gaenslen's, Teresa. Extremities: Peripheral joint ROM is full and pain free without obvious instability or laxity in all four extremities. No edema or skin discolorations noted. Gait: Gait is anantalgic NEUR: No loss of sensation is noted. Cranial nerves are grossly intact. Assessment and Plan Assessment: Assessment: 1. Right SI joint dysfunction 2. Previous lumbar surgery 3. Obesity Plan: 1. Explanation: I explained to her the nature of her pain 2. Opioid agreement: None 3. Counseling: The patient was counseled extensively on BODY MASS INDEX, EXERCISE. Specifically, the patient was instructed regarding the importance of weight control, and exercise in the context of both chronic pain and overall health. 4. Procedures: At this point her pain is well controlled, she will call in for right SI joint injection 5. Consultations: None 6. Investigations: Reviewed 7. Medications: Encouraged patient to have discussions with primary care physician 8. Disposition: She will call in one she is ready to have a right SI joint injection. , PQRS Measure Charge Sheet Measure #226: Tobacco Use: Screen & Cessation Intervention: Pt not a tobacco user Measure #111: Pneumonia Vaccination: Pneumococcal vaccine NOT administered or previously given Measure #47: Advance Care Plan: Advance care planning discussed & documented, pt chose/unable to give Measure #412: Opioid Treatment Agreement: No documentation of signed opioid treatment agreement Measure #408: Opioid Therapy Follow-up Evaluation: Patient had NO f/u eval minimum every 3 months during opioid therapy Measure #131: Pain Assessment & Follow-up: Pain positive & plan documented, Follow-up scheduled Measure #431: Unhealthy Alcohol Use Preventative Care & Scrn: Patient not identified as an unhealthy alcohol user PQRS Narrative: Smoking Status Never smoker Blood Pressure 153/88 Pain Intensity [Bilateral 2 Lower Back] Pain Intensity [None] 0 Scale Used Numeric (1 - 10) Hx Alcohol Use (MH) No Home Medications: Ambulatory Orders Montelukast Sodium [Singulair] 10 mg PO HS 01/01/14 Sotalol HCl [Sotalol] 80 mg PO DAILY 01/01/14 amLODIPine BESYLATE [Amlodipine Besylate] 10 mg PO HS 01/01/14 Aspirin 81 mg PO DAILY 11/12/14 Gabapentin 300 mg PO BID 08/06/15 Levothyroxine Sodium [Levoxyl] 175 mcg PO DAILY 08/06/15 Omeprazole 20 mg PO AC-BRKFST 08/06/15 Ferrous Sulfate [Iron (65 MG Elemental)] 65 mg PO SUWE 09/11/15 Furosemide [Lasix] 40 mg PO DAILY 10/11/15 Losartan Potassium 50 mg PO DAILY 10/11/15 Potassium Chloride ER [K-Dur 10] 20 meq PO BID 10/11/15 HYDROcodone/APAP 10-325MG [[place] 10-325] 1 tab PO Q6HR PRN 10/20/16 Calcitriol 0.25 mcg PO MATT 04/06/17 Metolazone [Zaroxolyn] 2.5 mg PO DAILY 08/04/17 Cetirizine HCl [Zyrtec] 10 mg PO DAILY 11/03/18 Ibuprofen [Motrin Ib] 400 - 600 mg PO Q6H PRN 12/30/18 Controlled Substance Measures - Controlled Substance Measures Is patient prescribed a controlled substance at discharge?: No
== END ==
LOC: PNWHC3 13:12
PROVIDERS: ATTEND Student in an Organized Health Care Education/Training Program
DX: M53.3 Sacrococcygeal disorders, not elsewhere classified (principal); E66.9 Obesity, unspecified; Z98.890 Other specified postprocedural states; Z79.899 Other long term (current) drug therapy; Z79.82 Long term (current) use of aspirin; Z79.891 Long term (current) use of opiate analgesic; Z79.1 Long term (current) use of non-steroidal anti-inflammatories (NSAID)
CPT/HCPCS: 99211

== ENCOUNTER → 2019-01-27 | Outpatient (CLI) | payer MEDICARE, OTHER ==
[2019-01-27 09:40] VITALS: RESP 16; TEMP 98.3
[2019-01-27 10:15] VITALS: BP 131/71; PULSE 52
[2019-01-27 10:19] LABS: Calcium 9.9 mg/dL (8.4-10.2); Potassium 4.2 mmol/L (3.5-5.1)
[2019-01-27 14:27] LABS: Calcium 9.7 mg/dL (8.4-10.2); Potassium 4.4 mmol/L (3.5-5.1)
== END | disposition home or self-care (01) ==
LOC: PROCWHC3 08:53
PROVIDERS: ATTEND Psychiatry & Neurology Neurology
DX: G61.81 Chronic inflammatory demyelinating polyneuritis (principal)
CPT/HCPCS: 80048; 96365; 96366; 36591; J1642; J1459

== ENCOUNTER → 2019-02-27 | Outpatient (CLI) | payer MEDICARE, OTHER ==
[2019-02-27 14:01] LABS: HCT 40.3 % (34.0-46.0); HGB 13.5 gm/dL (11.4-16.0); MCH 31.1 pg (25.0-35.0); MCHC 33.6 g/dL (31.0-37.0); MCV 92.7 fL (80.0-100.0); Mean Platelet Volume 7.4; Platelet Count 197 k/uL (150-450); RBC 4.35 m/uL (3.80-5.40); RDW 12.7 % (11.5-15.5); WBC 4.4 k/uL (3.8-10.6)
[2019-02-27 14:08] LABS: Appearance,Urine Clear (Clear); Bilirubin,Urine Negative (Negative); Blood,Urine Negative (Negative); Color,Urine Yellow; Glucose,Urine (UA) Negative (Negative); Hyaline Casts,Urine 11 /lpf (0-2); Ketones,Urine Negative (Negative); Leukocyte Esterase,Urine Large (Negative); Mucus,Urine Rare /hpf; Nitrite,Urine Negative (Negative); Protein,Urine Negative (Negative); RBC,Urine 2 /hpf (0-5); Specific Gravity,Urine 1.013 (1.001-1.035); Squamous Epithelial Cell,Urine 1 /hpf (0-4); Urobilinogen,Urine <2.0 mg/dL (<2.0); WBC,Urine 13 /hpf (0-5)
[2019-02-27 15:06] LABS: Protein/Creatinine Ratio,Urine 0.1
[2019-02-27 19:33] LABS: Ferritin 144.4 ng/mL (10.0-291.0)
[2019-02-27 20:27] LABS: % Iron Saturation 17.18 (12.00-45.00); African American GFR (CKD) 52.7 (60.0-200.0); Albumin 4.2 g/dL (3.80-4.90); Albumin/Globulin Ratio 1.75 (1.60-3.17); Anion Gap 9.3 mmol/L (4.00-12.00); BUN/Creat Ratio 13.33 Ratio (12.00-20.00); Calcium 9.5 mg/dL (8.7-10.3); Carbon Dioxide 24.7 mmol/L (21.6-31.8); Globulin 2.4 g/dL (1.6-3.3); Magnesium 1.7 mg/dL (1.5-2.4); Non-African American GFR(CKD) 45.4 (60.0-200.0); Phosphorus 2.8 mg/dL (2.4-5.1); Total Bilirubin 0.3 mg/dL (0.3-1.2); Total Protein 6.6 g/dL (6.2-8.2); Uric Acid 4.8 mg/dL (2.9-7.7)
== END ==
LOC: LABWHC1 12:36
PROVIDERS: ATTEND Nurse Practitioner Family
DX: N18.2 Chronic kidney disease, stage 2 (mild) (principal); D63.1 Anemia in chronic kidney disease; N39.0 Urinary tract infection, site not specified; N25.81 Secondary hyperparathyroidism of renal origin; E55.9 Vitamin D deficiency, unspecified; M10.9 Gout, unspecified; R80.9 Proteinuria, unspecified
CPT/HCPCS: 36415; 80053; 81001; 82570; 82728; 83540; 83550; 83735; 83970; 84100; 84156; 84550; 85027; 87086

== ENCOUNTER → 2019-03-10 | Outpatient (CLI) | payer MEDICARE, OTHER ==
[2019-03-10 09:05] VITALS: TEMP 97.7
[2019-03-10 09:16] LABS: Calcium 9.8 mg/dL (8.4-10.2); Potassium 4.2 mmol/L (3.5-5.1)
[2019-03-10 09:32] VITALS: BP 120/78; PULSE 52; RESP 18
[2019-03-10 09:32] LABS: T4, Free (Free Thyroxine) 1.56 ng/dL (0.78-2.19)
[2019-03-10 13:28] LABS: Calcium 9.6 mg/dL (8.4-10.2); Potassium 4.6 mmol/L (3.5-5.1)
[2019-03-10 19:38] LABS: Hemoglobin A1C 6.3 % (4.0-6.0)
== END | disposition home or self-care (01) ==
LOC: PROCWHC3 08:12
PROVIDERS: ATTEND Psychiatry & Neurology Neurology
DX: E03.9 Hypothyroidism, unspecified (principal); E78.2 Mixed hyperlipidemia; G61.81 Chronic inflammatory demyelinating polyneuritis
CPT/HCPCS: 84439; 80061; 80048; 84443; 83036; 96365; 96366; 36591; J1642; J1459

== ENCOUNTER → 2019-03-31 | Outpatient (CLI) | payer MEDICARE, OTHER ==
--- NOTE | 2019-04-02 13:44 | US ---
EXAMINATION TYPE: US kidneys/renal and bladder DATE OF EXAM: 03/31/2019 COMPARISON: NONE CLINICAL HISTORY: 73-year-old female N18.2 CKD. TECHNIQUE: Multiple sonographic images of the kidneys and bladder are obtained. FINDINGS: EXAM MEASUREMENTS: Right Kidney: 10.1 x 4.1 x 5.1 cm Left Kidney: 10.7 x 5.1 x 4.6 cm No hydronephrosis on either side. Bladder: wnl Incidental gallstones. IMPRESSION: 1. No hydronephrosis. 2. Incidental cholelithiasis.
== END | disposition home or self-care (01) ==
LOC: RADUSWWP 15:32
PROVIDERS: ATTEND Internal Medicine Nephrology
DX: N18.2 Chronic kidney disease, stage 2 (mild) (principal)
CPT/HCPCS: 76770

== ENCOUNTER → 2019-04-24 | Outpatient (CLI) | payer MEDICARE, OTHER ==
[2019-04-24 09:28] VITALS: RESP 16; TEMP 98
[2019-04-24 09:53] VITALS: BP 123/63; PULSE 61
[2019-04-24 10:08] LABS: Calcium 9.8 mg/dL (8.4-10.2); Potassium 4.1 mmol/L (3.5-5.1)
[2019-04-24 14:36] LABS: Calcium 9.6 mg/dL (8.4-10.2); Potassium 4.4 mmol/L (3.5-5.1)
== END | disposition home or self-care (01) ==
LOC: PROCWHC3 09:11
PROVIDERS: ATTEND Psychiatry & Neurology Neurology
DX: G61.81 Chronic inflammatory demyelinating polyneuritis (principal)
CPT/HCPCS: 80048; 96365; 96366; 36591; J1642; J1459

== ENCOUNTER → 2019-04-27 | Outpatient (CLI) | payer MEDICARE, OTHER ==
[2019-04-27 11:38] VITALS: BP 119/68; RESP 16
--- NOTE | 2019-04-29 14:35 | P.PAINPG ---
Subjective Progress Note Date: 04/27/19 This is a 73-year-old female with a history of Guillan Bare Syndrome, who gets IVIG therapy every 6 weeks. She has been followed in our clinic for SI joint pain. She has had both the SI joint steroid injections and RFA, she appears to respond better to the SI joint steroid injections. Today she returns from follow-up. She has completed physical therapy and continues to do exercises with good benefit. She is requesting a repeat referral to PT. Today, she reports that her pain is located in b/l low back in the region of SI joints, without radiation to LLE. 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 Review of systems is negative for chest pain, palpitations, shortness of breath, bowel incontinence, fevers, chills, night sweats, stroke-like symptoms. 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 She does endorse stress incontinence and is also recovering from a cold/cough. Objective Vital Signs: Reviewed in EMR GENERAL: Well appearing, in no acute distress, wheeled walker present by her side PSYCH: Mood and affect is appropriate. Awake, alert, and oriented SKIN: Skin color, texture, turgor normal, no rashes or lesions HEENT: Normocephalic, atraumatic. EOM intact CV: No pedal edema RESP: Respirations are unlabored, no audible wheezing GI: Abdomen non-distended MUSCULOSKELETAL: Lumbar scar well healed. Bilateral lower extremity strength is normal and symmetric. No atrophy or tone abnormalities are noted. Buttocks: Positive for Claudia's finger sign, positive Jr's, sacral thrust bilaterally. Extremities: Peripheral joint ROM is full and pain free without obvious instability or laxity in all four extremities. No edema or skin discolorations noted. Gait: Gait is slow NEUR: Reduced sensation to light touch in b/l calves and feet. Cranial nerves are grossly intact. Assessment and Plan Assessment: Assessment: 1. Right SI joint dysfunction 2. Previous lumbar surgery 3. Obesity 4. Guillian [place] Syndrome- present for 20 years, obtains IVIG every 6 weeks Plan: 1. Explanation: I explained to her the nature of her pain and potential benefit from repeat SI joint injection. I also asked her to consult with her neurologist, Dr. Felix, regarding possible caudal epidural with lysis of adhesions. 2. Opioid agreement: None 3. Counseling: The patient was counseled extensively on BODY MASS INDEX, EXERCISE. Specifically, the patient was instructed regarding the importance of weight control, and exercise in the context of both chronic pain and overall health. 4. Procedures: Will schedule bilateral SI joint injections 5. Consultations: referral to PT given, exercise handout given 6. Investigations: none 7. Medications: No changes 8. Disposition: for above mentioned procedure , Objective - Vital Signs Vital signs: Intake & Output 04/26/19 04/27/19 04/27/19 18:59 06:59 18:59 Weight 111.13 kg PQRS Measure Charge Sheet Measure #130: Documentation of Current Meds in Medical Chart: Patient's medications documented in chart Measure #226: Tobacco Use: Screen & Cessation Intervention: Pt not a tobacco user Measure #111: Pneumonia Vaccination: Pneumococcal vaccine NOT administered or previously given Measure #47: Advance Care Plan: Advance care planning discussed & documented, pt chose/unable to give Measure #412: Opioid Treatment Agreement: No documentation of signed opioid treatment agreement Measure #408: Opioid Therapy Follow-up Evaluation: Patient had NO f/u eval minimum every 3 months during opioid therapy Measure #317: Preventitive Care & Scrn High Bld Press & F/U: Normal blood pressure, f/u not required Measure #128: Body Mass Index (BMI) Screening & Follow-up: BMI documented ABOVE normal parameters - f/u documented Measure #131: Pain Assessment & Follow-up: Pain positive & plan documented, Follow-up scheduled Measure #431: Unhealthy Alcohol Use Preventative Care & Scrn: Patient not identified as an unhealthy alcohol user PQRS Narrative: Smoking Status Never smoker Pain Intensity [Lower Back] 5 Scale Used Numeric (1 - 10) Hx Alcohol Use (MH) No Home Medications: Ambulatory Orders Montelukast Sodium [Singulair] 10 mg PO HS 01/01/14 Sotalol HCl [Sotalol] 80 mg PO DAILY 01/01/14 amLODIPine BESYLATE [Amlodipine Besylate] 10 mg PO HS 01/01/14 Aspirin 81 mg PO HS 11/12/14 Gabapentin 300 mg PO TID 08/06/15 Omeprazole 20 mg PO AC-BRKFST 08/06/15 Ferrous Sulfate [Iron (65 MG Elemental)] 65 mg PO MOWEFR 09/11/15 Furosemide [Lasix] 40 mg PO DAILY 10/11/15 Losartan Potassium 50 mg PO DAILY 10/11/15 Potassium Chloride ER [K-Dur 10] 20 meq PO BID 10/11/15 HYDROcodone/APAP 10-325MG [[place] 10-325] 1 tab PO TID 10/20/16 Calcitriol 0.25 mcg PO TUTH 04/06/17 Cholecalciferol [Vitamin D3 (25 Mcg = 1000 Iu)] 5,000 unit PO DAILY 04/26/19 Clindamycin [Cleocin] 150 mg PO DIRECTED PRN 04/26/19 Ergocalciferol [Vitamin D2] 50,000 unit PO QMONTH 04/26/19 Furosemide [Lasix] 40 mg PO ONCE PRN 04/26/19 Ibuprofen [Motrin Ib] 400 mg PO TID PRN 04/26/19 Levothyroxine Sodium [Synthroid] 150 mcg PO DAILY 04/26/19 Mometasone Furoate [Nasonex Nasal [place]] 1 - 2 spray EA NOSTRIL DAILY PRN 04/26/19 [place]-3 Fatty Acids/Fish Oil [Fish Oil 1,000 mg Softgel] 1 each PO BID 04/26/19 predniSONE [Deltasone] 40 mg PO DIRECTED PRN 04/26/19 Controlled Substance Measures - Controlled Substance Measures Is patient prescribed a controlled substance at discharge?: No
== END | disposition home or self-care (01) ==
LOC: PNWHC3 11:22
PROVIDERS: ATTEND Anesthesiology
DX: G61.0 Guillain-Barre syndrome (principal); M53.3 Sacrococcygeal disorders, not elsewhere classified; E66.9 Obesity, unspecified; Z68.41 Body mass index [BMI] 40.0-44.9, adult; Z98.890 Other specified postprocedural states; Z79.891 Long term (current) use of opiate analgesic; Z79.82 Long term (current) use of aspirin; Z79.2 Long term (current) use of antibiotics; Z79.1 Long term (current) use of non-steroidal anti-inflammatories (NSAID); Z79.890 Hormone replacement therapy; Z79.51 Long term (current) use of inhaled steroids; Z79.899 Other long term (current) drug therapy
CPT/HCPCS: 99211

== ENCOUNTER 2019-05-10 09:26 | Day surgery (SDC) | payer MEDICARE, OTHER ==
[~2019-05-10 09:26] MED LIST changes: +BUPIVACAINE (PF) 0.5% 30 ML VIAL ONE; -IMMUNE GLOBULIN IV NR; +LACTATED RINGERS 1,000 ML IV SCH; -SODIUM CHLORIDE 0.9% 500 ML 500 ML in EMPTY BAG 1 BAG IV PRN; +methylPREDNISolone ACETATE 40 MG/ML 1 ML VIAL ONE
[2019-05-10 10:04] VITALS: RESP 18; TEMP 98.6
--- NOTE | 2019-05-10 10:26 | P.GSHP ---
History of Present Illness H&P Date: 05/10/19 This is 73 years old female with a history of chronic severe low back pain she is diagnosed with bilateral sacroiliac joint dysfunction bilateral sacroiliitis and lumbar degenerative disc disease ,she is here today to bilateral sacroiliac joint steroid injections Past Medical History Past Medical History: GERD/Reflux, Hyperlipidemia, Hypertension, Osteoarthritis (OA), Pneumonia, Thyroid Disorder Additional Past Medical History / Comment(s): Spinal stenosis. CHRONIC BACK PAIN, RADIATING TO BOTH THIGHS. 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 USES WALKER FOR LONG DISTANCES. PERIPHERAL EDEMA. IRREG HR, URINARY LEAKAGE,"PREDIABETIC". Leaky heart valve. Hx of migraines but none since sinus surgery. Hypothyroid. Meuropathy L leg/foot. History of Any Multi-Drug Resistant Organisms: None Reported Past Surgical History: Back Surgery, Heart Catheterization, Joint Replacement, Orthopedic Surgery, Tubal Ligation Additional Past Surgical History / Comment(s): 08/15/15 Exploration of lumbar fusion and lumbar lami with decompression fusion L1-L2. Other surgical HX: Lumbar laminectomy L2-S1, SHORTY KNEE REPLACEMENTS,LAP BAND 2005, SINUS SURGERY,"PLUGGED" PORTACATH LT CHEST 2013 [facility] port - rt side Past Anesthesia/Blood Transfusion Reactions: Postoperative Nausea & Vomiting (PONV) Past Psychological History: Anxiety, Depression Additional Psychological History / Comment(s): Pt states she lives with her spouse. She has a walker for ambulation. She drives. Smoking Status: Never smoker Past Alcohol Use History: None Reported Past Drug Use History: None Reported - Past Family History Mother Family Medical History: CVA/TIA Additional Family Medical History / Comment(s): Mother at the age of 92 yrs from complications with a CVA Father Family Medical History: Cancer Additional Family Medical History / Comment(s): Father from a complication of colon cancer at the age of 95 yrs. Medications and Allergies Home Medications Medication Instructions Recorded Confirmed Type Montelukast Sodium [Singulair] 10 mg PO HS 01/01/14 05/10/19 History Sotalol HCl [Sotalol] 80 mg PO QA 01/01/14 05/10/19 History amLODIPine BESYLATE [Amlodipine 10 mg PO HS 01/01/14 05/10/19 History Besylate] Aspirin 81 mg PO HS 11/12/14 05/10/19 History Gabapentin 300 mg PO TID 08/06/15 05/10/19 History Omeprazole 20 mg PO AC-BRKFST 08/06/15 05/10/19 History Ferrous Sulfate [Iron (65 MG 65 mg PO MOWEFR 09/11/15 05/10/19 History Elemental)] Furosemide [Lasix] 40 mg PO QAM 10/11/15 05/10/19 History Losartan Potassium 50 mg PO QAM 10/11/15 05/10/19 History Potassium Chloride ER [K-Dur 10] 20 meq PO BID 10/11/15 05/10/19 History HYDROcodone/APAP 10-325MG [[place] 1 tab PO TID PRN 10/20/16 05/10/19 History 10-325] Calcitriol 0.25 mcg PO TUTHSA 04/06/17 05/10/19 History Cholecalciferol [Vitamin D3 (25 5,000 unit PO MOTUWETHFRSA 04/26/19 05/10/19 History Mcg = 1000 Iu)] Clindamycin [Cleocin] 300 mg PO DIRECTED PRN 04/26/19 05/10/19 History Ergocalciferol [Vitamin D2] 50,000 unit PO QMONTH 04/26/19 05/10/19 History Furosemide [Lasix] 40 mg PO ONCE PRN 04/26/19 05/10/19 History Levothyroxine Sodium [Synthroid] 150 mcg PO MOTUWETHFRSA 04/26/19 05/10/19 History Mometasone Furoate [Nasonex Nasal 1 - 2 spray EA NOSTRIL DAILY PRN 04/26/19 05/10/19 History [place]] Corinne-3 Fatty Acids/Fish Oil [Fish 1,000 mg PO BID 04/26/19 05/10/19 History Oil 1,000 mg Softgel] predniSONE [Deltasone] 40 mg PO DIRECTED PRN 04/26/19 05/10/19 History Ezetimibe [Zetia] 10 mg PO QAM 05/09/19 05/10/19 History Ivig 1 dose IV Q30D 05/09/19 05/10/19 History Allergies Allergy/AdvReac Type Severity Reaction Status Date / Time adhesive tape Allergy Rash/Hives Verified 05/10/19 09:46 codeine Allergy Nausea & Verified 05/10/19 09:46 Vomiting Influenza Virus Vaccines Allergy caused Verified 05/10/19 09:46 Guillain barre Penicillins Allergy Rash/Hives Verified 05/10/19 09:46 Ffoiyur-Bgd-Osm Reductase Allergy UNABLE TO Verified 05/10/19 09:46 Inhibitor WALK,GUILLAIN-BARRE SYNDROME Surgical - Exam Vital Signs Temp Pulse Resp BP Pulse Ox 98.6 F 58 L 18 112/62 94 L 05/10/19 09:44 05/10/19 09:44 05/10/19 09:44 05/10/19 09:44 05/10/19 09:44 GENERAL: Well appearing, in no acute distress, wheeled walker present by her side PSYCH: Mood and affect is appropriate. Awake, alert, and oriented SKIN: Skin color, texture, turgor normal, no rashes or lesions HEENT: Normocephalic, atraumatic. EOM intact CV: No pedal edema RESP: Respirations are unlabored, no audible wheezing GI: Abdomen non-distended MUSCULOSKELETAL: Lumbar scar well healed. Bilateral lower extremity strength is normal and symmetric. No atrophy or tone abnormalities are noted. Buttocks: Positive for Claudia's finger sign, positive Jr's, sacral thrust bilaterally. Extremities: Peripheral joint ROM is full and pain free without obvious instability or laxity in all four extremities. No edema or skin discolorations noted. Gait: Gait is slow NEUR: Reduced sensation to light touch in b/l calves and feet. Cranial nerves are grossly intact. Assessment and Plan Plan: Assessment and plan=1 bilateral sacroiliac joint dysfunction 2-bilateral sacroiliitis. 3-lumbar degenerative disc disease. Patient could benefit from bilateral sacroiliac joint steroid injection Time with Patient: Less than 30
--- NOTE | 2019-05-10 10:42 | P.PCN ---
Date of Procedure: 05/10/19 Procedure(s) Performed: Procedure= bilateral sacral iliac joints steroid injection under fluoroscopy guidance (fluoroscopy image stored on file in the radiology Department ) Preoperative diagnosis= 1-bilateral sacroiliitis 2-bilateral sacroiliac joint dysfunction. Postoperative diagnosis= same as preop diagnosis Complication = none Condition= stable Anesthesia= only local infiltration with lidocaine 1% 4 mL Indication for the procedure= patient complaining of low back pain , examination was positive for severe tenderness over the sacroiliac joints bilaterally and patient diagnosed with sacroiliitis, for this reason , she was good candidate for sacroiliac joint steroid injection. Description of the procedure= procedure risk and benefits discussed with the patient, including but not limited, risk of infection and bleeding, and ALLERGIC reaction to the medication and not complete pain relief and patient agreed with the preceding patient taken to the operating room, placed in prone position or standard monitors applied to the patient,then the back prepped with chlorhexidine 3 times , Then under strict sterile technique, first I did the right sacroiliac joint the which was identified under fluoroscopy guidance been local infiltration of the skin and subcu interstitial with lidocaine 1% then 22-gauge Quincke Needle advanced slowly under fluoroscopy and placed in the right sacroiliac joint needle placement confirmed with AP and oblique and lateral view and after appropriate needle placement confirmed and after negative aspiration, or heme , then Ropivacaine 0.5% 3 mL, and 20 mg of Depo-Medrol mixed together and injected in the right sacroiliac joint after negative aspiration patient tolerated the procedure well without any complication. Then the left sacroiliac joint steroid injection done under strict sterile technique local infiltration of the skin and subcu interstitial at the location of the left sacroiliac joint then a 22-gauge Quincke Needle advanced slowly under fluoroscopy time placed in the left sacroiliac joint, needle placement confirmed with AP and oblique and lateral view then after appropriate needle placement confirmed and after negative aspiration 0.5% Marcaine 3 mL and 20 mg of Depo-Medrol injected in the left sacroiliac joint after negative aspiration patient tolerated the procedure well that any complications and she will follow up in clinic 3 weeks
--- NOTE | 2019-05-10 10:52 | FL ---
EXAMINATION TYPE: FL guided pain mgmt statistic DATE OF EXAM: 05/10/2019 CLINICAL HISTORY: Low back and sacroiliac joint pain. TECHNIQUE: Fluoroscopy. COMPARISON: None. FINDINGS: Fluoroscopic guidance was provided during pain relief procedure performed by Dr. Aguilar . A total of 5 seconds of fluoroscopic time was utilized during the procedure and two spot images ar e acquired. Images acquired shows needle localization of the sacroiliac joints. IMPRESSION: As Above.
[2019-05-10 11:13] VITALS: BP 118/78; PULSE 67
--- NOTE | 2019-05-15 14:34 | P.PN ---
Progress Note - Text Progress Note Date: 05/15/19 Patient called on the phone regarding pain in the area of the SI joint or she reports after having the injection she has pain in the area and describes a "weakness" over the muscle area with the injection site was made there is no new weakness in her lower extremities. There is no bowel or bladder incontinence. She just feels pain in that area. We discussed that if the symptoms progress or she's developing any leg weakness she should go to the emergency room. At this time I've asked her to some ice packs over the area over the next day or 2 and evaluate. If she has any further questions or concerns of like for her to come in and CSF over the emergency room. Patient agrees and understands completely
== END 2019-05-10 11:28 | disposition home or self-care (01) ==
LOC: ORPAIN 09:26
PROVIDERS: ATTEND Specialist
DX: G89.29 Other chronic pain (principal); M46.1 Sacroiliitis, not elsewhere classified; M53.3 Sacrococcygeal disorders, not elsewhere classified; M51.16 Intervertebral disc disorders with radiculopathy, lumbar region; I10 Essential (primary) hypertension; F41.9 Anxiety disorder, unspecified; F32.9 Major depressive disorder, single episode, unspecified; E78.5 Hyperlipidemia, unspecified; M19.90 Unspecified osteoarthritis, unspecified site; K21.9 Gastro-esophageal reflux disease without esophagitis; G61.0 Guillain-Barre syndrome; E03.9 Hypothyroidism, unspecified; G43.909 Migraine, unspecified, not intractable, without status migrainosus; G62.9 Polyneuropathy, unspecified; Z88.0 Allergy status to penicillin; Z88.7 Allergy status to serum and vaccine; Z88.5 Allergy status to narcotic agent; Z88.8 Allergy status to other drugs, medicaments and biological substances; Z98.51 Tubal ligation status; Z91.048 Other nonmedicinal substance allergy status; Z96.653 Presence of artificial knee joint, bilateral; Z79.890 Hormone replacement therapy; Z79.82 Long term (current) use of aspirin; Z79.899 Other long term (current) drug therapy; Z98.84 Bariatric surgery status; Z98.1 Arthrodesis status; Z82.3 Family history of stroke; Z87.01 Personal history of pneumonia (recurrent); Z80.0 Family history of malignant neoplasm of digestive organs
CPT/HCPCS: J1030; G0260

== ENCOUNTER → 2019-06-05 | Outpatient (CLI) | payer MEDICARE, OTHER ==
[~2019-06-05] MED LIST changes: -BUPIVACAINE (PF) 0.5% 30 ML VIAL ONE; +IMMUNE GLOBULIN IV NR; -LACTATED RINGERS 1,000 ML IV SCH; +SODIUM CHLORIDE 0.9% 500 ML 500 ML in EMPTY BAG 1 BAG IV PRN; -methylPREDNISolone ACETATE 40 MG/ML 1 ML VIAL ONE
[2019-06-05 08:37] VITALS: BP 159/74; PULSE 60; RESP 16; TEMP 97.8
[2019-06-05 09:17] LABS: African American GFR (CKD) >90 (>60 ml/min/1.73 sqM); Anion Gap 12 mmol/L; Blood Urea Nitrogen 20 mg/dL (7-17); Calcium 9.7 mg/dL (8.4-10.2); Carbon Dioxide 26 mmol/L (22-30); Chloride 101 mmol/L (98-107); Glucose 207 mg/dL (74-99); Non-African American GFR(CKD) 79 (>60 ml/min/1.73 sqM); Potassium 4.6 mmol/L (3.5-5.1); Sodium 139 mmol/L (137-145)
[2019-06-05 13:26] LABS: Calcium 9.5 mg/dL (8.4-10.2); Potassium 4.4 mmol/L (3.5-5.1)
== END | disposition home or self-care (01) ==
LOC: PROCWHC3 08:30
PROVIDERS: ATTEND Psychiatry & Neurology Neurology
DX: G61.81 Chronic inflammatory demyelinating polyneuritis (principal)
CPT/HCPCS: 80048; 96365; 96366; 36591; J1642; J1459

== ENCOUNTER → 2019-07-17 | Outpatient (CLI) | payer MEDICARE, OTHER ==
[2019-07-17 09:03] VITALS: TEMP 97.7
[2019-07-17 09:19] LABS: Basophils % (A) 0 %; Eosinophils # (A) 0.1 k/uL (0-0.7); Eosinophils % (A) 1 %; HCT 37.3 % (34.0-46.0); HGB 12.3 gm/dL (11.4-16.0); Lymphocytes # (A) 0.9 k/uL (1.0-4.8); Lymphocytes % (A) 16 %; MCH 30.4 pg (25.0-35.0); MCHC 33.1 g/dL (31.0-37.0); Mean Platelet Volume 8.6; Monocytes # (A) 0.2 k/uL (0-1.0); Monocytes % (A) 4 %; Neutrophils # (A) 4.6 k/uL (1.3-7.7); Neutrophils % (A) 78 %; Platelet Count 202 k/uL (150-450); RBC 4.05 m/uL (3.80-5.40); RDW 13.2 % (11.5-15.5); WBC 5.9 k/uL (3.8-10.6)
[2019-07-17 09:34] VITALS: PULSE 59
[2019-07-17 09:52] VITALS: BP 119/60; RESP 18
[2019-07-17 10:09] LABS: Albumin 4.2 g/dL (3.5-5.0); Calcium 9.5 mg/dL (8.4-10.2); Potassium 4.4 mmol/L (3.5-5.1); Total Bilirubin 0.3 mg/dL (0.2-1.3); Total Protein 7.5 g/dL (6.3-8.2)
[2019-07-17 10:12] LABS: T4, Free (Free Thyroxine) 1.37 ng/dL (0.78-2.19)
[2019-07-17 13:28] LABS: Calcium 9.5 mg/dL (8.4-10.2); Potassium 4.8 mmol/L (3.5-5.1)
[2019-07-17 22:00] LABS: Hemoglobin A1C 6.4 % (4.0-6.0)
== END | disposition home or self-care (01) ==
LOC: PROCWHC3 08:30
PROVIDERS: ATTEND Psychiatry & Neurology Neurology
DX: I10 Essential (primary) hypertension (principal); E03.9 Hypothyroidism, unspecified; E11.65 Type 2 diabetes mellitus with hyperglycemia; E78.5 Hyperlipidemia, unspecified; G61.81 Chronic inflammatory demyelinating polyneuritis
CPT/HCPCS: 84439; 80061; 80053; 80048; 84443; 85025; 83036; 96365; 96366; 36591; J1642; J1459

== ENCOUNTER → 2019-08-28 | Outpatient (CLI) | payer MEDICARE, OTHER ==
[2019-08-28 08:57] VITALS: PULSE 52; TEMP 98
[2019-08-28 09:34] VITALS: BP 140/62; RESP 18
[2019-08-28 09:45] LABS: African American GFR (CKD) >90 (>60 ml/min/1.73 sqM); Anion Gap 11 mmol/L; Blood Urea Nitrogen 14 mg/dL (7-17); Calcium 9.5 mg/dL (8.4-10.2); Carbon Dioxide 25 mmol/L (22-30); Chloride 102 mmol/L (98-107); Glucose 236 mg/dL (74-99); Non-African American GFR(CKD) 79 (>60 ml/min/1.73 sqM); Potassium 4.4 mmol/L (3.5-5.1); Sodium 138 mmol/L (137-145)
[2019-08-28 14:07] LABS: Calcium 9.3 mg/dL (8.4-10.2); Potassium 4.6 mmol/L (3.5-5.1)
[2019-08-28 18:20] LABS: Hemoglobin A1C 6.1 % (4.0-6.0)
== END | disposition home or self-care (01) ==
LOC: PROCWHC3 08:29
PROVIDERS: ATTEND Internal Medicine Geriatric Medicine
DX: E11.9 Type 2 diabetes mellitus without complications (principal); G61.81 Chronic inflammatory demyelinating polyneuritis
CPT/HCPCS: 80048; 83036; 96365; 96366; 36591; J1642; J1459

== ENCOUNTER → 2019-09-05 | Outpatient (CLI) | payer MEDICARE, OTHER ==
[2019-09-05 13:25] VITALS: BP 112/76; PULSE 56; TEMP 98.1; BMI 40.1
--- NOTE | 2019-09-05 16:03 | P.BASOAP ---
Subjective Progress Note Date: 09/05/19 Principal diagnosis: Dysphagia 74-year-old female known to our service from previous lap band placement. Patient's last visit 2016. Patient had a small adjustment performed at that time. Lately he has had increased dysphagia with intermittent mucousy emesis. It was occurring daily now is happening less frequently. No recent esophagram. Objective - Vital Signs Vital signs: Vital Signs Temp 98.1 F 09/05/19 13:23 Pulse 56 L 09/05/19 13:23 Resp BP 112/76 09/05/19 13:23 Pulse Ox Intake & Output 09/04/19 09/05/19 09/05/19 18:59 06:59 18:59 Weight 109.316 kg - Exam Abdomen: Soft, nontender, nondistended Assessment/Plan (1) Dysphagia Narrative/Plan: Options reviewed. Will into the band at this time. Check esophagogram. The patient's lap band port was palpated. The site was aseptically prepped. The Johnston needle was advanced into the port. A total of 1 ml of fluid was ev acuated. Band is now empty. Pressure was held and a sterile dressing was applied. Plan: Date: 09/05/19 Initial Weight: Initial BMI: Current Weight: 109.316 kg Current BMI: 40.1 Type of Surgery: Total Volume in Band: 0 Previous Volume: Volume Removed: 1 Volume Added: Band Size:
== END | disposition home or self-care (01) ==
LOC: BARWHC3 12:35
PROVIDERS: ATTEND Surgery
DX: Z46.51 Encounter for fitting and adjustment of gastric lap band (principal); R13.10 Dysphagia, unspecified
CPT/HCPCS: 99212

== ENCOUNTER → 2019-09-15 | Outpatient (CLI) | payer MEDICARE, OTHER ==
--- NOTE | 2019-09-15 09:53 | FL ---
EXAMINATION TYPE: FL barium swallow DATE OF EXAM: 09/15/2019 COMPARISON: None HISTORY: Patient perceives solid foods getting stuck mid esophageal region. TECHNIQUE: A single contrast UGI study is performed. FINDINGS: Contrast passes from the distal esophagus through the lap band without hesitancy. No extrav asation of contrast is evident. A small hiatal hernia is above the lap band. Lap band position appears normal. Contrast passing thro ugh the lap band appears normal. Distal esophagus appears normal. Secondary and tertiary contractions are evident compatible with pres byesophagus. Fluoroscopy time: 59 seconds Images: 14 IMPRESSIONS: 1. Small hiatal hernia appears to be present above the lap band. 2. Presbyesophagus. 3. No stenosis passing through the lap band.
== END | disposition home or self-care (01) ==
LOC: RADUSWWP 08:30
PROVIDERS: ATTEND Surgery
DX: K44.9 Diaphragmatic hernia without obstruction or gangrene (principal); K22.8 Other specified diseases of esophagus
CPT/HCPCS: 74220

== ENCOUNTER → 2019-10-09 | Outpatient (CLI) | payer MEDICARE, OTHER ==
[2019-10-09 09:43] VITALS: BP 116/68; PULSE 56; RESP 16
[2019-10-09 10:26] LABS: Basophils % (A) 0 %; Eosinophils % (A) 1 %; HCT 37.8 % (34.0-46.0); HGB 12.3 gm/dL (11.4-16.0); Lymphocytes # (A) 0.9 k/uL (1.0-4.8); Lymphocytes % (A) 14 %; MCH 30.5 pg (25.0-35.0); MCHC 32.7 g/dL (31.0-37.0); MCV 93.5 fL (80.0-100.0); Mean Platelet Volume 8.4; Monocytes # (A) 0.3 k/uL (0-1.0); Monocytes % (A) 5 %; Neutrophils # (A) 5.3 k/uL (1.3-7.7); Neutrophils % (A) 80 %; Platelet Count 176 k/uL (150-450); RBC 4.04 m/uL (3.80-5.40); RDW 12.4 % (11.5-15.5); WBC 6.6 k/uL (3.8-10.6)
[2019-10-09 10:51] LABS: Albumin 4.3 g/dL (3.5-5.0); Calcium 9.6 mg/dL (8.4-10.2); Potassium 4.3 mmol/L (3.5-5.1); Total Bilirubin 0.5 mg/dL (0.2-1.3); Total Protein 7.2 g/dL (6.3-8.2)
[2019-10-09 11:05] LABS: T4, Free (Free Thyroxine) 1.54 ng/dL (0.78-2.19)
[2019-10-09 14:18] LABS: Calcium 9.4 mg/dL (8.4-10.2); Potassium 4.5 mmol/L (3.5-5.1)
[2019-10-09 17:29] LABS: Hemoglobin A1C 6.4 % (4.0-6.0)
== END | disposition home or self-care (01) ==
LOC: PROCWHC3 09:06
PROVIDERS: ATTEND Nurse Practitioner Family
DX: G61.81 Chronic inflammatory demyelinating polyneuritis (principal); I10 Essential (primary) hypertension; E11.65 Type 2 diabetes mellitus with hyperglycemia; E78.2 Mixed hyperlipidemia; E03.9 Hypothyroidism, unspecified
CPT/HCPCS: 84439; 80061; 80053; 80048; 84443; 85025; 83036; 96365; 96366; 36591; J1459

== ENCOUNTER → 2019-11-20 | Outpatient (CLI) | payer MEDICARE, OTHER ==
[2019-11-20 09:30] VITALS: RESP 16; TEMP 97.9
[2019-11-20 09:56] VITALS: BP 144/78; PULSE 46
[2019-11-20 10:15] LABS: Calcium 9.7 mg/dL (8.4-10.2); Potassium 4.4 mmol/L (3.5-5.1)
[2019-11-20 13:48] LABS: Calcium 9.4 mg/dL (8.4-10.2); Potassium 4.3 mmol/L (3.5-5.1)
== END | disposition home or self-care (01) ==
LOC: PROCWHC3 09:08
PROVIDERS: ATTEND Psychiatry & Neurology Neurology
DX: G61.81 Chronic inflammatory demyelinating polyneuritis (principal)
CPT/HCPCS: 80048; 96365; 96366; 36591; J1642; J1459

== ENCOUNTER 2019-12-05 07:07 | Day surgery (SDC) | payer MEDICARE, OTHER ==
[2019-11-30 13:53] VITALS: BMI 40.1
[~2019-12-05 07:07] MED LIST changes: -IMMUNE GLOBULIN IV NR; +LACTATED RINGERS 1,000 ML IV SCH; +LIDOCAINE 1% (10MG/ML) FOR IV START INTRADERMA PRN; -SODIUM CHLORIDE 0.9% 500 ML 500 ML in EMPTY BAG 1 BAG IV PRN
[2019-12-05 07:21] VITALS: TEMP 97.9
[2019-12-05] MEDS ORDERED: MIDAZOLAM 2 MG/2 ML VIAL ONE (08:00)
[2019-12-05] MEDS ORDERED: PROPOFOL 10 MG/ML 20 ML VIAL IV ONE (08:00)
[2019-12-05] MEDS ORDERED: fentaNYL (PF) 50 MCG/ML 2 ML AMP ONE (08:00)
--- NOTE | 2019-12-05 08:07 | P.GSHP ---
History of Present Illness H&P Date: 12/05/19 Chief Complaint: GERD, vomiting 74-year-old female known for certain. History of previous lap band placement. Patient lightly has had increasing episodes of vomiting. Usually after solid foods. Oftentimes is bilious. Mild reflux as well. Band is empty. Past Medical History Past Medical History: GERD/Reflux, Hyperlipidemia, Hypertension, Osteoarthritis (OA), Thyroid Disorder Additional Past Medical History / Comment(s): Spinal stenosis. 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 USES WALKER FOR LONG DISTANCES. hx PERIPHERAL EDEMA. URINARY LEAKAGE,"PREDIABETIC" - diet control. Leaky heart valve. neuropathy . palpitations, hx ulcer,hiatal hernia, History of Any Multi-Drug Resistant Organisms: None Reported Past Surgical History: Back Surgery, Heart Catheterization, Joint Replacement, Orthopedic Surgery, Tubal Ligation Additional Past Surgical History / Comment(s): Exploration of lumbar fusion and lumbar laminectomy with decompression fusion L1-L2. Lumbar laminectomy L2-S1, SHORTY KNEE REPLACEMENTS, LAP BAND , SINUS SURGERY,PORTACATH LT CHEST/later removed and reinserted on rt side Past Anesthesia/Blood Transfusion Reactions: Motion Sickness, Postoperative Nausea & Vomiting (PONV) Smoking Status: Never smoker - Past Family History Mother Family Medical History: CVA/TIA Additional Family Medical History / Comment(s): Mother at the age of 92 yrs from complications with a CVA Father Family Medical History: Cancer Additional Family Medical History / Comment(s): colon cancer Brother(s) Family Medical History: Deep Vein Thrombosis (DVT) Medications and Allergies Home Medications Medication Instructions Recorded Confirmed Type Montelukast Sodium [Singulair] 10 mg PO 1800 01/01/14 12/05/19 History Sotalol HCl [Sotalol] 80 mg PO QAM 01/01/14 12/05/19 History amLODIPine BESYLATE [Amlodipine 10 mg PO 1700 01/01/14 12/05/19 History Besylate] Aspirin 81 mg PO HS 11/12/14 12/05/19 History Gabapentin 300 mg PO TID 08/06/15 12/05/19 History Omeprazole 20 mg PO AC-BRKFST 08/06/15 12/05/19 History Ferrous Sulfate [Iron (65 MG 65 mg PO MOWEFR 09/11/15 12/05/19 History Elemental)] Furosemide [Lasix] 40 mg PO BID 10/11/15 12/05/19 History Losartan Potassium 50 mg PO QAM 10/11/15 12/05/19 History Potassium Chloride ER [K-Dur 10] 20 meq PO BID 10/11/15 12/05/19 History HYDROcodone/APAP 10-325MG [[place] 1 tab PO TID 10/20/16 12/05/19 History 10-325] calcitrioL [Calcitriol] 0.25 mcg PO TUTHSA 04/06/17 12/05/19 History Cholecalciferol [Vitamin D3 (25 5,000 unit PO MOTUWETHFRSA 04/26/19 12/05/19 History Mcg = 1000 Iu)] Ergocalciferol [Vitamin D2] 50,000 unit PO QMONTH 04/26/19 12/05/19 History Levothyroxine Sodium [Synthroid] 150 mcg PO MOTUWETHFRSA 04/26/19 12/05/19 History Mometasone Furoate [Nasonex Nasal 1 - 2 spray EA NOSTRIL DAILY PRN 04/26/19 12/05/19 History [place]] predniSONE [Deltasone] 40 mg PO DIRECTED PRN 04/26/19 12/05/19 History Ivig 1 dose IV DIRECTED 05/09/19 12/05/19 History Ezetimibe [Zetia] 10 mg PO DAILY 11/30/19 12/05/19 History [place]-3 Fatty Acids/Fish Oil [Fish 1 each PO BID 11/30/19 12/05/19 History Oil 1,000 mg Softgel] Allergies Allergy/AdvReac Type Severity Reaction Status Date / Time adhesive tape Allergy Rash/Hives Verified 12/05/19 07:28 codeine Allergy Nausea & Verified 12/05/19 07:28 Vomiting Influenza Virus Vaccines Allergy caused Verified 12/05/19 07:28 Guillain barre Penicillins Allergy Rash/Hives Verified 12/05/19 07:28 Mtohpow-Uhj-Xii Reductase Allergy UNABLE TO Verified 12/05/19 07:28 Inhibitor WALK,GUILLAIN-BARRE SYNDROME Surgical - Exam Vital Signs Temp Pulse Resp BP Pulse Ox 97.9 F 54 L 16 171/77 97 12/05/19 07:18 12/05/19 07:18 12/05/19 07:18 12/05/19 07:18 12/05/19 07:18 Physical exam: General: Well-developed, well-nourished HEENT: Normocephalic, sclerae nonicteric Abdomen: Nontender, nondistended Extremities: No edema Neuro: Alert and oriented Assessment and Plan (1) GERD (gastroesophageal reflux disease) Narrative/Plan: Will proceed with upper endoscopy. Current Visit: Yes Status: Acute Code(s): K21.9 - GASTRO-ESOPHAGEAL REFLUX DISEASE WITHOUT ESOPHAGITIS SNOMED Code(s): 511397264
--- NOTE | 2019-12-05 08:16 | P.PCN ---
Date of Procedure: 12/05/19 Procedure(s) Performed: Preoperative Dx: GERD, dysphagia, vomiting Postoperative Dx: Esophageal foreign body, mild gastritis, mild distal esophagitis Procedure: EGD with Bx Anesthesia: Sedation Endoscopist: Dr. Huitron Specimens: Antrum Endoscopic Procedure: The patient was on the endoscopy table in the left decubitus position. The Olympus gastroscope was inserted into the oropharynx and passed under direct visualization to the region of the third portion of the duodenum. From that point the scope was slowly withdrawn inspecting all surfaces carefully. There were no neoplastic inflammatory or polypoid lesions throughout the duodenum. The pylorus was widely patent. The stomach was carefully inspected. There was mild gastritis present. A biopsy of the antrum took place to rule out H. pylori. Retroflexion revealed a normal band plication. The esophagus was then carefully examined. Upon initial passage of the endoscope we noted a foreign body in the distal esophagus. We were able to pass beyond this without difficulty. Initially I thought was this was food-like material. As we brought the camera back into the esophagus we identified a rigid piece material present just above the GE junction. This was able to be removed from the esophagus using a Rios that. Palpation demonstrated that this was a plastic From a bottle. There was mild distal esophagitis present. Hiatal hernia was difficult to say with certainty because of the previous lap band placement. The patient was then taken to the recovery room in stable condition per anesthesia guidelines. Recommendations: Patient should feel much better now after removing the esophageal foreign body. Patient with underlying presbyesophagus her upper GI earlier this summer. Resume diet.
[2019-12-05 08:21] VITALS: PULSE 51
[2019-12-05 08:44] VITALS: BP 120/66; RESP 18
== END 2019-12-05 09:17 | disposition home or self-care (01) ==
LOC: ORWHC2ENDO 07:07
PROVIDERS: ATTEND Surgery
DX: T18.198A Other foreign object in esophagus causing other injury, initial encounter (principal); X58.XXXA Exposure to other specified factors, initial encounter; K21.9 Gastro-esophageal reflux disease without esophagitis; K29.50 Unspecified chronic gastritis without bleeding; K44.9 Diaphragmatic hernia without obstruction or gangrene; E78.5 Hyperlipidemia, unspecified; I10 Essential (primary) hypertension; G89.29 Other chronic pain; M54.9 Dorsalgia, unspecified; G61.0 Guillain-Barre syndrome; Z79.899 Other long term (current) drug therapy; R32 Unspecified urinary incontinence; Z79.891 Long term (current) use of opiate analgesic; R73.03 Prediabetes; I38 Endocarditis, valve unspecified; R00.2 Palpitations; Z98.51 Tubal ligation status; Z98.1 Arthrodesis status; Z97.2 Presence of dental prosthetic device (complete) (partial); Z96.653 Presence of artificial knee joint, bilateral; Z82.3 Family history of stroke; Z80.0 Family history of malignant neoplasm of digestive organs; Z82.49 Family history of ischemic heart disease and other diseases of the circulatory system; Z79.890 Hormone replacement therapy; Z88.5 Allergy status to narcotic agent; Z88.0 Allergy status to penicillin; Z88.7 Allergy status to serum and vaccine; Z88.8 Allergy status to other drugs, medicaments and biological substances; Z91.09 Other allergy status, other than to drugs and biological substances; Z98.84 Bariatric surgery status
CPT/HCPCS: 88305; 43239; 43247; J2250; J3010; J2704

== ENCOUNTER → 2020-01-01 | Outpatient (CLI) | payer MEDICARE, OTHER ==
[~2020-01-01] MED LIST changes: +IMMUNE GLOBULIN IV NR; -LACTATED RINGERS 1,000 ML IV SCH; -LIDOCAINE 1% (10MG/ML) FOR IV START INTRADERMA PRN; +SODIUM CHLORIDE 0.9% 500 ML 500 ML in EMPTY BAG 1 BAG IV PRN
[2020-01-01 09:30] VITALS: TEMP 98
[2020-01-01 09:53] LABS: Basophils % (A) 0 %; Eosinophils % (A) 0 %; HCT 38.8 % (34.0-46.0); HGB 13.3 gm/dL (11.4-16.0); Lymphocytes # (A) 0.9 k/uL (1.0-4.8); Lymphocytes % (A) 16 %; MCH 31.2 pg (25.0-35.0); MCHC 34.4 g/dL (31.0-37.0); MCV 90.9 fL (80.0-100.0); Monocytes # (A) 0.3 k/uL (0-1.0); Monocytes % (A) 5 %; Neutrophils # (A) 4.3 k/uL (1.3-7.7); Neutrophils % (A) 79 %; Platelet Count 193 k/uL (150-450); RBC 4.27 m/uL (3.80-5.40); RDW 13.1 % (11.5-15.5); WBC 5.5 k/uL (3.8-10.6)
[2020-01-01 10:00] LABS: Albumin 4.3 g/dL (3.5-5.0); Calcium 9.4 mg/dL (8.4-10.2); Potassium 4.1 mmol/L (3.5-5.1); Total Bilirubin 0.6 mg/dL (0.2-1.3); Total Protein 7.5 g/dL (6.3-8.2)
[2020-01-01 10:11] VITALS: BP 127/76; PULSE 64; RESP 16
[2020-01-01 10:15] LABS: T4, Free (Free Thyroxine) 1.54 ng/dL (0.78-2.19)
[2020-01-01 15:10] LABS: Calcium 9.2 mg/dL (8.4-10.2); Potassium 4.1 mmol/L (3.5-5.1)
[2020-01-01 17:17] LABS: Hemoglobin A1C 6.5 % (4.0-6.0)
== END | disposition home or self-care (01) ==
LOC: PROCWHC3 07:13
PROVIDERS: ATTEND Psychiatry & Neurology Neurology
DX: G61.81 Chronic inflammatory demyelinating polyneuritis (principal); E11.65 Type 2 diabetes mellitus with hyperglycemia; E55.9 Vitamin D deficiency, unspecified; R41.3 Other amnesia
CPT/HCPCS: 84207; 84439; 80061; 80053; 82607; 84443; 85025; 82306; 83036; 96365; 96366; 36591; J1642; J1459; 80048

== ENCOUNTER → 2020-02-12 | Outpatient (CLI) | payer MEDICARE, OTHER ==
[~2020-02-12] MED LIST changes: -IMMUNE GLOBULIN IV NR; +IMMUNE GLOBULIN IV ONE
[2020-02-12 09:06] VITALS: RESP 16; TEMP 98
[2020-02-12 09:33] VITALS: BP 107/65; PULSE 55
[2020-02-12 10:07] LABS: Calcium 9.5 mg/dL (8.4-10.2); Potassium 4.4 mmol/L (3.5-5.1)
[2020-02-12 13:36] LABS: Calcium 9.4 mg/dL (8.4-10.2); Potassium 4.4 mmol/L (3.5-5.1)
== END | disposition home or self-care (01) ==
LOC: PROCWHC3 08:49
PROVIDERS: ATTEND Psychiatry & Neurology Neurology
DX: G61.81 Chronic inflammatory demyelinating polyneuritis (principal)
CPT/HCPCS: 80048; 96365; 96366; 36591; J1642; J1459

== ENCOUNTER → 2020-03-25 | Outpatient (CLI) | payer MEDICARE, OTHER ==
[2020-03-25 09:23] VITALS: RESP 16; TEMP 98
[2020-03-25 10:28] VITALS: BP 122/80; PULSE 49
[2020-03-25 10:30] LABS: Calcium 9.3 mg/dL (8.4-10.2); Potassium 4.2 mmol/L (3.5-5.1)
[2020-03-25 13:36] LABS: Calcium 9.4 mg/dL (8.4-10.2); Potassium 4.6 mmol/L (3.5-5.1)
== END ==
LOC: PROCWHC3 09:03
PROVIDERS: ATTEND Psychiatry & Neurology Neurology
DX: N18.9 Chronic kidney disease, unspecified (principal)
CPT/HCPCS: 80048; 96365; 96366; 36591; J1642; J1459

== ENCOUNTER → 2020-04-17 | Outpatient (CLI) | payer MEDICARE, OTHER ==
--- NOTE | 2020-04-17 10:32 | CT ---
EXAMINATION TYPE: CT thoracic spine wo con, CT lumbar spine wo con DATE OF EXAM: 04/17/2020 COMPARISON: Prior lumbar spine x-ray November 12, 2015. MRI lumbar spine 2012. HISTORY: Mid and low back pain. CT DLP: 1481.50 (accession [id number]), 1377.30 (accession [id number]) mGycm Automated exposure control for dose reduction was used. CT of the thoracic and lumbar spine. FINDINGS: Coronal images show slight dextroconvex scoliotic curvature centered mid thoracic spine. Alignment is straightened on sagittal images. Vertebral body heights are maintained. Mild multilevel disc space n arrowing. Mild multilevel anterior and lateral spurring. Spinal canal grossly preserved. No large dis c herniations seen. Partial visualization of right internal jugular Mediport catheter terminating in SVC. Visualized lung s are clear. Enlarged pulmonary arteries are present, CT findings consistent with underlying pulmonar y hypertension. Mild cardiomegaly is seen. There is 4.4 cm ascending aortic aneurysm axial image 43 n oted. Some prominent but subcentimeter lymph nodes in the mediastinum are seen. Lap band device is sa tisfactory in position just below diaphragm. There is redemonstration of posterior interpedicular rods and screws transfixing the L1 through the S 1 levels bilaterally. There is ossific fusion at the L1-L2 level identified since prior x-ray. There is also interval ossific fusion at the L4-L5 and L5-S1 levels. Alignment is stable with focal kyphosi s at the L1-L2 level redemonstrated, bony projections level mildly effaces anterior thecal sac. No si gnificant progression from x-ray. Multilevel bilateral laminectomy defects and spinous process resect ion redemonstrated running L2-L5 level. Spinal canal grossly preserved. Artifact from metallic hardwa re redemonstrated. Screw position stable. Coronal images show slight reactive levoconvex scoliotic cu rvature centered at L1-L2 level. Review of axial images shows no suspicious abnormality. Small dependent gallstones and/or gallbladder sludge in gallbladder. Partial visualization of overlying lap band. IMPRESSION: As above.
== END | disposition home or self-care (01) ==
LOC: RADCTMAIN 09:00
DX: M48.04 Spinal stenosis, thoracic region (principal); M41.84 Other forms of scoliosis, thoracic region; Z98.890 Other specified postprocedural states; Z98.1 Arthrodesis status
CPT/HCPCS: 72128; 72131

== ENCOUNTER → 2020-05-06 | Outpatient (CLI) | payer MEDICARE, OTHER ==
[~2020-05-06] MED LIST changes: +IMMUNE GLOBULIN IV NR; -IMMUNE GLOBULIN IV ONE
[2020-05-06 09:03] VITALS: PULSE 51; RESP 16; TEMP 98.1
[2020-05-06 09:31] VITALS: BP 116/69
[2020-05-06 09:52] LABS: Calcium 9.7 mg/dL (8.4-10.2); Potassium 4.3 mmol/L (3.5-5.1)
[2020-05-06 13:20] LABS: Calcium 9.5 mg/dL (8.4-10.2); Potassium 4.4 mmol/L (3.5-5.1)
== END | disposition home or self-care (01) ==
LOC: PROCWHC3 08:42
PROVIDERS: ATTEND Psychiatry & Neurology Neurology
DX: G61.81 Chronic inflammatory demyelinating polyneuritis (principal)
CPT/HCPCS: 80048; 96365; 96366; 36591; J1642; J1459

== ENCOUNTER → 2020-06-17 | Outpatient (CLI) | payer MEDICARE, OTHER ==
[2020-06-17 09:15] VITALS: RESP 16; TEMP 98.1
[2020-06-17 09:51] VITALS: BP 148/77; PULSE 55
[2020-06-17 10:15] LABS: Basophils % (A) 1 %; Eosinophils % (A) 1 %; HCT 39.2 % (34.0-46.0); HGB 13.3 gm/dL (11.4-16.0); Lymphocytes % (A) 18 %; MCH 30.5 pg (25.0-35.0); MCV 89.5 fL (80.0-100.0); Mean Platelet Volume 8.3; Monocytes # (A) 0.3 k/uL (0-1.0); Monocytes % (A) 6 %; Neutrophils # (A) 3.9 k/uL (1.3-7.7); Neutrophils % (A) 73 %; Platelet Count 213 k/uL (150-450); RBC 4.38 m/uL (3.80-5.40); RDW 13.3 % (11.5-15.5); WBC 5.3 k/uL (3.8-10.6)
[2020-06-17 11:17] LABS: Albumin 4.3 g/dL (3.5-5.0); Calcium 9.7 mg/dL (8.4-10.2); Potassium 4.1 mmol/L (3.5-5.1); Total Bilirubin 0.4 mg/dL (0.2-1.3); Total Protein 7.4 g/dL (6.3-8.2)
[2020-06-17 11:31] LABS: T4, Free (Free Thyroxine) 1.32 ng/dL (0.78-2.19)
[2020-06-17 13:50] LABS: Calcium 9.3 mg/dL (8.4-10.2); Potassium 4.6 mmol/L (3.5-5.1)
[2020-06-17 16:46] LABS: Hemoglobin A1C 5.7 % (4.0-6.0)
== END | disposition home or self-care (01) ==
LOC: PROCWHC3 08:57
PROVIDERS: ATTEND Psychiatry & Neurology Neurology
DX: E78.2 Mixed hyperlipidemia (principal); E03.9 Hypothyroidism, unspecified; E11.65 Type 2 diabetes mellitus with hyperglycemia; G61.81 Chronic inflammatory demyelinating polyneuritis
CPT/HCPCS: 84439; 80061; 80053; 84443; 85025; 83036; 96365; 96366; 36591; J1642; J1459; 80048

== ENCOUNTER → 2020-07-29 | Outpatient (CLI) | payer MEDICARE, OTHER ==
[2020-07-29 09:14] VITALS: BP 114/64; TEMP 98
[2020-07-29 10:08] VITALS: PULSE 47; RESP 18
[2020-07-29 10:45] LABS: Calcium 9.2 mg/dL (8.4-10.2); Potassium 4.5 mmol/L (3.5-5.1)
[2020-07-29 14:22] LABS: Potassium 4.9 mmol/L (3.5-5.1)
== END ==
LOC: PROCWHC3 08:50
PROVIDERS: ATTEND Psychiatry & Neurology Neurology
DX: G61.81 Chronic inflammatory demyelinating polyneuritis (principal)
CPT/HCPCS: 80048; 96365; 96366; 36591; J1642; J1459

== ENCOUNTER → 2020-09-09 | Outpatient (CLI) | payer MEDICARE, OTHER ==
[2020-09-09 09:05] VITALS: RESP 16; TEMP 98.2
[2020-09-09 09:43] VITALS: BP 109/65; PULSE 52
[2020-09-09 09:46] LABS: Basophils % (A) 1 %; Calcium 9.3 mg/dL (8.4-10.2); Eosinophils # (A) 0.1 k/uL (0-0.7); Eosinophils % (A) 1 %; HCT 38.7 % (34.0-46.0); HGB 12.8 gm/dL (11.4-16.0); Lymphocytes # (A) 0.9 k/uL (1.0-4.8); Lymphocytes % (A) 21 %; MCH 30.2 pg (25.0-35.0); MCHC 33.1 g/dL (31.0-37.0); MCV 91.3 fL (80.0-100.0); Mean Platelet Volume 7.8; Monocytes # (A) 0.2 k/uL (0-1.0); Monocytes % (A) 4 %; Neutrophils % (A) 71 %; Phosphorus 2.4 mg/dL (2.5-4.5); Platelet Count 175 k/uL (150-450); Potassium 4.2 mmol/L (3.5-5.1); RBC 4.23 m/uL (3.80-5.40); RDW 13.2 % (11.5-15.5); Total Bilirubin 0.2 mg/dL (0.2-1.3); Total Protein 6.9 g/dL (6.3-8.2); Uric Acid 4.2 mg/dL (3.7-7.4); WBC 4.2 k/uL (3.8-10.6)
[2020-09-09 13:36] LABS: Calcium 8.9 mg/dL (8.4-10.2); Potassium 4.4 mmol/L (3.5-5.1)
[2020-09-09 19:49] LABS: % Iron Saturation 34.84 (12.00-45.00)
== END ==
LOC: PROCWHC3 08:53
PROVIDERS: ATTEND Psychiatry & Neurology Neurology
DX: G61.81 Chronic inflammatory demyelinating polyneuritis (principal); N18.2 Chronic kidney disease, stage 2 (mild); D63.1 Anemia in chronic kidney disease; N39.0 Urinary tract infection, site not specified; E55.9 Vitamin D deficiency, unspecified; M10.9 Gout, unspecified; R80.9 Proteinuria, unspecified; N25.81 Secondary hyperparathyroidism of renal origin; Z91.048 Other nonmedicinal substance allergy status; Z88.5 Allergy status to narcotic agent; Z88.0 Allergy status to penicillin; Z88.8 Allergy status to other drugs, medicaments and biological substances; Z88.7 Allergy status to serum and vaccine
CPT/HCPCS: 80053; 80048; 83540; 83550; 83735; 84100; 84550; 85025; 82306; 83970; 96365; 96366; 36591; J1642; J1459

== ENCOUNTER → 2020-10-21 | Outpatient (CLI) | payer MEDICARE, OTHER ==
[2020-10-21 09:14] VITALS: RESP 18; TEMP 97.5
[2020-10-21] MEDS: IMMUNE GLOBULIN IV NR ×3 (09:16→12:09)
[2020-10-21 09:40] VITALS: BP 110/66; PULSE 52
[2020-10-21 09:46] LABS: Calcium 9.6 mg/dL (8.4-10.2); Potassium 4.1 mmol/L (3.5-5.1)
[2020-10-21 14:07] LABS: Calcium 9.4 mg/dL (8.4-10.2); Potassium 4.6 mmol/L (3.5-5.1)
== END ==
LOC: PROCWHC3 08:54
PROVIDERS: ATTEND Psychiatry & Neurology Neurology
DX: G61.81 Chronic inflammatory demyelinating polyneuritis (principal); Z88.5 Allergy status to narcotic agent; Z88.0 Allergy status to penicillin; Z88.7 Allergy status to serum and vaccine; Z88.8 Allergy status to other drugs, medicaments and biological substances; Z91.048 Other nonmedicinal substance allergy status
CPT/HCPCS: 80048; 96365; 96366; 36591; J1642; J1459

== ENCOUNTER → 2020-12-03 | Outpatient (CLI) | payer MEDICARE, OTHER ==
[~2020-12-03] MED LIST changes: -IMMUNE GLOBULIN IV NR; +IMMUNE GLOBULIN IV ONE
[2020-12-03 08:30] VITALS: RESP 16; TEMP 98.6
[2020-12-03 08:44] LABS: Basophils % (A) 1 %; Eosinophils % (A) 1 %; HCT 36.9 % (34.0-46.0); HGB 12.7 gm/dL (11.4-16.0); Lymphocytes # (A) 1.1 k/uL (1.0-4.8); Lymphocytes % (A) 21 %; MCH 32.1 pg (25.0-35.0); MCHC 34.3 g/dL (31.0-37.0); MCV 93.6 fL (80.0-100.0); Mean Platelet Volume 8.1; Monocytes # (A) 0.3 k/uL (0-1.0); Monocytes % (A) 5 %; Neutrophils # (A) 3.8 k/uL (1.3-7.7); Neutrophils % (A) 71 %; Platelet Count 198 k/uL (150-450); RBC 3.95 m/uL (3.80-5.40); RDW 13.1 % (11.5-15.5); WBC 5.4 k/uL (3.8-10.6)
[2020-12-03 08:54] VITALS: BP 112/65; PULSE 54
[2020-12-03 09:02] LABS: Albumin 3.9 g/dL (3.5-5.0); Calcium 9.6 mg/dL (8.4-10.2); Potassium 4.2 mmol/L (3.5-5.1); Total Bilirubin 0.2 mg/dL (0.2-1.3); Total Protein 6.8 g/dL (6.3-8.2)
[2020-12-03 09:16] LABS: T4, Free (Free Thyroxine) 1.09 ng/dL (0.78-2.19)
[2020-12-03 12:44] LABS: Calcium 9.4 mg/dL (8.4-10.2); Potassium 4.4 mmol/L (3.5-5.1)
[2020-12-03 15:02] LABS: Hemoglobin A1C 5.8 % (4.0-6.0)
[2020-12-03 21:30] LABS: Chol/HDL Ratio 3.71; LDL Cholesterol,Calculated 100.4 mg/dL (0.0-131.0); VLDL Calculation 32.6 mg/dL (5.00-40.00)
[2020-12-04 16:03] LABS: Microalbumin Creatinine Ratio <30 mg/g Creat (0-30); Urine Creatinine 27.7 mg/dL
== END ==
LOC: PROCWHC3 07:50
PROVIDERS: ATTEND Psychiatry & Neurology Neurology
DX: G61.81 Chronic inflammatory demyelinating polyneuritis (principal); Z91.048 Other nonmedicinal substance allergy status; Z88.5 Allergy status to narcotic agent; Z88.7 Allergy status to serum and vaccine; Z88.0 Allergy status to penicillin
CPT/HCPCS: 84439; 80061; 80053; 80048; 84443; 85025; 82043; 82570; 83036; 96365; 96366; 36591; J1642; J1459

== ENCOUNTER → 2021-01-14 | Outpatient (CLI) | payer MEDICARE, OTHER ==
[2021-01-14 09:19] VITALS: RESP 16; TEMP 98.4
[2021-01-14 09:37] LABS: Calcium 9.9 mg/dL (8.4-10.2); Potassium 4.3 mmol/L (3.5-5.1)
[2021-01-14 09:45] VITALS: BP 111/66; PULSE 74
[2021-01-14 13:43] LABS: Albumin 3.9 g/dL (3.5-5.0); Calcium 9.3 mg/dL (8.4-10.2); Potassium 4.1 mmol/L (3.5-5.1); Total Bilirubin 0.3 mg/dL (0.2-1.3)
== END ==
LOC: PROCWHC3 08:48
PROVIDERS: ATTEND Psychiatry & Neurology Neurology
DX: G61.81 Chronic inflammatory demyelinating polyneuritis (principal); Z91.048 Other nonmedicinal substance allergy status; Z88.5 Allergy status to narcotic agent; Z88.0 Allergy status to penicillin; Z88.7 Allergy status to serum and vaccine; Z88.8 Allergy status to other drugs, medicaments and biological substances
CPT/HCPCS: 80053; 80048; 96365; 96366; 36591; J1459

== ENCOUNTER → 2021-02-25 | Outpatient (CLI) | payer MEDICARE, OTHER ==
[~2021-02-25] MED LIST changes: +IMMUNE GLOBULIN IV NR; -IMMUNE GLOBULIN IV ONE
[2021-02-25 09:15] VITALS: RESP 16; TEMP 98.4
[2021-02-25 09:45] LABS: Calcium 9.3 mg/dL (8.4-10.2); Potassium 3.9 mmol/L (3.5-5.1)
[2021-02-25 09:50] VITALS: BP 113/62; PULSE 55
[2021-02-25 13:49] LABS: Calcium 9.4 mg/dL (8.4-10.2); Potassium 4.5 mmol/L (3.5-5.1); Total Bilirubin 0.4 mg/dL (0.2-1.3); Total Protein 7.9 g/dL (6.3-8.2)
== END ==
LOC: PROCWHC3 08:40
PROVIDERS: ATTEND Psychiatry & Neurology Neurology
DX: G61.81 Chronic inflammatory demyelinating polyneuritis (principal); Z91.048 Other nonmedicinal substance allergy status; Z88.5 Allergy status to narcotic agent; Z88.0 Allergy status to penicillin; Z88.8 Allergy status to other drugs, medicaments and biological substances; Z88.7 Allergy status to serum and vaccine
CPT/HCPCS: 80053; 80048; 96365; 96366; 36591; J1642; J1459

== ENCOUNTER → 2021-04-08 | Outpatient (CLI) | payer MEDICARE, OTHER ==
[2021-04-08 09:10] VITALS: TEMP 98.1
[2021-04-08 09:36] LABS: Basophils % (A) 1 %; Eosinophils % (A) 1 %; HCT 38.9 % (34.0-46.0); HGB 13.3 gm/dL (11.4-16.0); Lymphocytes # (A) 1.1 k/uL (1.0-4.8); Lymphocytes % (A) 22 %; MCH 31.1 pg (25.0-35.0); MCHC 34.1 g/dL (31.0-37.0); MCV 91.3 fL (80.0-100.0); Mean Platelet Volume 8.4; Monocytes # (A) 0.3 k/uL (0-1.0); Monocytes % (A) 6 %; Neutrophils # (A) 3.8 k/uL (1.3-7.7); Neutrophils % (A) 71 %; Platelet Count 181 k/uL (150-450); RBC 4.26 m/uL (3.80-5.40); RDW 12.6 % (11.5-15.5); WBC 5.3 k/uL (3.8-10.6)
[2021-04-08 09:51] VITALS: BP 108/62; PULSE 52; RESP 14
[2021-04-08 10:23] LABS: ALT 18 U/L (4-34); AST 29 U/L (14-36); African American GFR (CKD) 69 (>60 ml/min/1.73 sqM); Albumin 4.3 g/dL (3.5-5.0); Alkaline Phosphatase 133 U/L (38-126); Anion Gap 11 mmol/L; Blood Urea Nitrogen 19 mg/dL (7-17); Calcium 9.8 mg/dL (8.4-10.2); Carbon Dioxide 27 mmol/L (22-30); Chloride 103 mmol/L (98-107); Glucose 137 mg/dL (74-99); Non-African American GFR(CKD) 60 (>60 ml/min/1.73 sqM); Sodium 141 mmol/L (137-145); Total Bilirubin 0.5 mg/dL (0.2-1.3); Total Protein 7.6 g/dL (6.3-8.2)
[2021-04-08 10:40] LABS: T4, Free (Free Thyroxine) 1.27 ng/dL (0.78-2.19)
[2021-04-08 13:56] LABS: Calcium 9.5 mg/dL (8.4-10.2); Potassium 4.5 mmol/L (3.5-5.1)
[2021-04-08 17:03] LABS: Estimated Average Glucose 126
[2021-04-08 21:38] LABS: LDL Cholesterol,Calculated 127.5 mg/dL (0.0-131.0)
== END ==
LOC: PROCWHC3 08:50
PROVIDERS: ATTEND Psychiatry & Neurology Neurology
DX: G61.81 Chronic inflammatory demyelinating polyneuritis (principal); Z91.048 Other nonmedicinal substance allergy status; Z88.5 Allergy status to narcotic agent; Z88.7 Allergy status to serum and vaccine; Z88.0 Allergy status to penicillin; Z88.8 Allergy status to other drugs, medicaments and biological substances
CPT/HCPCS: 84439; 80061; 80053; 80048; 84443; 85025; 83036; 96365; 96366; 36591; J1642; J1459

== ENCOUNTER → 2021-05-20 | Outpatient (CLI) | payer MEDICARE, OTHER ==
[2021-05-20] MEDS: IMMUNE GLOBULIN IV NR ×2 (09:15→09:34)
[2021-05-20 09:43] VITALS: PULSE 54; RESP 16; TEMP 98.5
[2021-05-20 09:48] VITALS: BP 107/68
[2021-05-20 10:03] LABS: Basophils % (A) 1 %; Eosinophils # (A) 0.1 k/uL (0-0.7); Eosinophils % (A) 1 %; HGB 12.9 gm/dL (11.4-16.0); Lymphocytes % (A) 18 %; MCHC 34.1 g/dL (31.0-37.0); MCV 93.7 fL (80.0-100.0); Mean Platelet Volume 8.2; Monocytes # (A) 0.2 k/uL (0-1.0); Monocytes % (A) 3 %; Neutrophils # (A) 4.4 k/uL (1.3-7.7); Neutrophils % (A) 77 %; Platelet Count 200 k/uL (150-450); RBC 4.05 m/uL (3.80-5.40); RDW 13.1 % (11.5-15.5); WBC 5.8 k/uL (3.8-10.6)
[2021-05-20 11:24] LABS: Calcium 9.4 mg/dL (8.4-10.2); Magnesium 1.8 mg/dL (1.6-2.3); Phosphorus 3.1 mg/dL (2.5-4.5); Total Bilirubin 0.4 mg/dL (0.2-1.3); Total Protein 7.5 g/dL (6.3-8.2); Uric Acid 4.5 mg/dL (3.7-7.4)
[2021-05-20 13:23] LABS: Appearance,Urine Clear (Clear); Bilirubin,Urine Negative (Negative); Blood,Urine Negative (Negative); Color,Urine Light Yellow; Glucose,Urine (UA) Negative (Negative); Ketones,Urine Negative (Negative); Leukocyte Esterase,Urine Negative (Negative); Nitrite,Urine Negative (Negative); PH, Urine 5.5 (5.0-8.0); Protein,Urine Negative (Negative); Specific Gravity,Urine 1.012 (1.001-1.035); Urobilinogen,Urine <2.0 mg/dL (<2.0)
[2021-05-20 13:42] LABS: Calcium 9.2 mg/dL (8.4-10.2); Potassium 4.6 mmol/L (3.5-5.1)
[2021-05-20 19:27] LABS: % Iron Saturation 25.74 (12.00-45.00)
== END ==
LOC: PROCWHC3 08:53
PROVIDERS: ATTEND Psychiatry & Neurology Neurology
DX: G61.81 Chronic inflammatory demyelinating polyneuritis (principal); Z91.048 Other nonmedicinal substance allergy status; Z88.5 Allergy status to narcotic agent; Z88.7 Allergy status to serum and vaccine; Z88.0 Allergy status to penicillin; Z88.8 Allergy status to other drugs, medicaments and biological substances
CPT/HCPCS: 80053; 80048; 83540; 83550; 83735; 84100; 84550; 85025; 81003; 82306; 83970; 96365; 96366; 36591; J1642; J1459

== ENCOUNTER → 2021-08-12 | Outpatient (CLI) | payer MEDICARE, OTHER ==
[2021-08-12 09:52] VITALS: RESP 16; TEMP 98.2
[2021-08-12 10:15] VITALS: BP 116/69; PULSE 72
[2021-08-12 10:52] LABS: Calcium 9.4 mg/dL (8.4-10.2); Potassium 4.3 mmol/L (3.5-5.1)
[2021-08-12 14:20] LABS: Calcium 9.1 mg/dL (8.4-10.2); Potassium 4.6 mmol/L (3.5-5.1)
== END ==
LOC: PROCWHC3 09:19
PROVIDERS: ATTEND Psychiatry & Neurology Neurology
DX: G61.81 Chronic inflammatory demyelinating polyneuritis (principal); Z91.048 Other nonmedicinal substance allergy status; Z88.5 Allergy status to narcotic agent; Z88.7 Allergy status to serum and vaccine; Z88.0 Allergy status to penicillin; Z88.8 Allergy status to other drugs, medicaments and biological substances
CPT/HCPCS: 80048; 96365; 96366; 36591; J1642; J1459

== ENCOUNTER → 2021-09-23 | Outpatient (CLI) | payer MEDICARE, OTHER ==
[2021-09-23 09:30] VITALS: PULSE 51; RESP 16; TEMP 97.9
[2021-09-23 09:43] LABS: Calcium 9.4 mg/dL (8.4-10.2); Potassium 3.9 mmol/L (3.5-5.1)
[2021-09-23 09:52] VITALS: BP 112/68
[2021-09-23 14:13] LABS: Potassium 4.3 mmol/L (3.5-5.1)
== END ==
LOC: PROCWHC3 08:47
PROVIDERS: ATTEND Psychiatry & Neurology Neurology
DX: G61.81 Chronic inflammatory demyelinating polyneuritis (principal); Z88.5 Allergy status to narcotic agent; Z88.0 Allergy status to penicillin; Z88.7 Allergy status to serum and vaccine; Z88.8 Allergy status to other drugs, medicaments and biological substances; Z91.048 Other nonmedicinal substance allergy status
CPT/HCPCS: 36591; 80048; 96365; 96366

== ENCOUNTER → 2021-11-04 | Outpatient (CLI) | payer MEDICARE, OTHER ==
[2021-11-04 09:09] VITALS: RESP 16; TEMP 98
[2021-11-04 09:34] VITALS: BP 124/72; PULSE 57
[2021-11-04 10:11] LABS: Potassium 4.4 mmol/L (3.5-5.1)
[2021-11-04 10:33] LABS: Calcium 9.4 mg/dL (8.4-10.2)
[2021-11-04 13:40] LABS: Calcium 8.9 mg/dL (8.4-10.2); Potassium 4.5 mmol/L (3.5-5.1)
== END ==
LOC: PROCWHC3 08:50
PROVIDERS: ATTEND Psychiatry & Neurology Neurology
DX: G61.81 Chronic inflammatory demyelinating polyneuritis (principal); Z88.5 Allergy status to narcotic agent; Z88.0 Allergy status to penicillin; Z88.7 Allergy status to serum and vaccine; Z88.8 Allergy status to other drugs, medicaments and biological substances
CPT/HCPCS: 80048; 96365; 96366; 36591; J1642; J1459

== ENCOUNTER → 2021-12-16 | Outpatient (CLI) | payer MEDICARE, OTHER ==
[2021-12-16 09:05] VITALS: RESP 16; TEMP 98.1
[2021-12-16 10:00] LABS: Calcium 9.2 mg/dL (8.4-10.2); Potassium 4.2 mmol/L (3.5-5.1)
[2021-12-16 10:03] VITALS: BP 120/75; PULSE 47
[2021-12-16 13:41] LABS: Albumin 4.2 g/dL (3.5-5.0); Potassium 4.4 mmol/L (3.5-5.1); Total Bilirubin 0.5 mg/dL (0.2-1.3); Total Protein 7.9 g/dL (6.3-8.2)
== END ==
LOC: PROCWHC3 08:49
PROVIDERS: ATTEND Psychiatry & Neurology Neurology
DX: G61.81 Chronic inflammatory demyelinating polyneuritis (principal); Z91.048 Other nonmedicinal substance allergy status; Z88.5 Allergy status to narcotic agent; Z88.7 Allergy status to serum and vaccine; Z88.0 Allergy status to penicillin; Z88.8 Allergy status to other drugs, medicaments and biological substances
CPT/HCPCS: 80053; 80048; 96365; 96366; J1642; J1459

== ENCOUNTER → 2022-01-27 | Outpatient (CLI) | payer MEDICARE, OTHER ==
[2022-01-27 09:04] VITALS: TEMP 97.7
[2022-01-27 09:22] VITALS: BP 111/67; PULSE 45; RESP 16
[2022-01-27 10:23] LABS: Calcium 9.7 mg/dL (8.4-10.2); Potassium 4.3 mmol/L (3.5-5.1)
[2022-01-27 13:17] LABS: Calcium 8.9 mg/dL (8.4-10.2); Potassium 3.7 mmol/L (3.5-5.1)
== END ==
LOC: PROCWHC3 08:49
PROVIDERS: ATTEND Psychiatry & Neurology Neurology
DX: G61.81 Chronic inflammatory demyelinating polyneuritis (principal); Z91.048 Other nonmedicinal substance allergy status; Z88.5 Allergy status to narcotic agent; Z88.7 Allergy status to serum and vaccine; Z88.0 Allergy status to penicillin; Z88.8 Allergy status to other drugs, medicaments and biological substances
CPT/HCPCS: 80048; 96365; 96366; 36591; J1642; J1459

== ENCOUNTER → 2022-03-10 | Outpatient (CLI) | payer MEDICARE, OTHER ==
[2022-03-10 08:53] VITALS: RESP 16; TEMP 97.8
[2022-03-10 09:21] VITALS: BP 108/69; PULSE 51
[2022-03-10 09:23] LABS: Calcium 9.3 mg/dL (8.4-10.2)
[2022-03-10 13:09] LABS: Calcium 8.9 mg/dL (8.4-10.2); Potassium 4.4 mmol/L (3.5-5.1)
== END ==
LOC: PROCWHC3 08:44
PROVIDERS: ATTEND Psychiatry & Neurology Neurology
DX: G61.81 Chronic inflammatory demyelinating polyneuritis (principal); Z91.048 Other nonmedicinal substance allergy status; Z88.5 Allergy status to narcotic agent; Z88.7 Allergy status to serum and vaccine; Z88.8 Allergy status to other drugs, medicaments and biological substances
CPT/HCPCS: 80048; 96365; 96366; 36591; J1642; J1459

== ENCOUNTER → 2022-04-21 | Outpatient (CLI) | payer MEDICARE, OTHER ==
[2022-04-21 09:33] VITALS: RESP 16; TEMP 98
[2022-04-21 09:52] LABS: Calcium 9.2 mg/dL (8.4-10.2)
[2022-04-21 09:58] VITALS: BP 108/68; PULSE 48
[2022-04-21 13:51] LABS: Calcium 8.8 mg/dL (8.4-10.2); Potassium 4.5 mmol/L (3.5-5.1)
== END ==
LOC: PROCWHC3 09:21
PROVIDERS: ATTEND Psychiatry & Neurology Neurology
DX: G61.81 Chronic inflammatory demyelinating polyneuritis (principal); Z91.048 Other nonmedicinal substance allergy status; Z88.5 Allergy status to narcotic agent; Z88.7 Allergy status to serum and vaccine; Z88.0 Allergy status to penicillin
CPT/HCPCS: 80048; 96365; 96366; 36591; J1642; J1459

== ENCOUNTER → 2022-07-14 | Outpatient (CLI) | payer MEDICARE, OTHER ==
[2022-07-14 09:13] VITALS: PULSE 81; RESP 16; TEMP 97.6
[2022-07-14 09:39] VITALS: BP 120/75
[2022-07-14 10:01] LABS: Calcium 9.5 mg/dL (8.4-10.2); Potassium 4.5 mmol/L (3.5-5.1)
[2022-07-14 13:55] LABS: Calcium 8.9 mg/dL (8.4-10.2); Potassium 4.6 mmol/L (3.5-5.1)
== END ==
LOC: PROCWHC3 09:02
PROVIDERS: ATTEND Psychiatry & Neurology Neurology
DX: G61.81 Chronic inflammatory demyelinating polyneuritis (principal); Z91.048 Other nonmedicinal substance allergy status; Z88.7 Allergy status to serum and vaccine; Z88.0 Allergy status to penicillin; Z88.8 Allergy status to other drugs, medicaments and biological substances
CPT/HCPCS: 80048; 96365; 96366; 36591; J1642; J1459

== ENCOUNTER → 2022-08-25 | Outpatient (CLI) | payer MEDICARE, OTHER ==
[2022-08-25 08:57] VITALS: RESP 16; TEMP 98
[2022-08-25 09:32] VITALS: BP 110/67; PULSE 53
[2022-08-25 10:07] LABS: Calcium 9.7 mg/dL (8.4-10.2); Potassium 4.4 mmol/L (3.5-5.1)
[2022-08-25 13:27] LABS: Potassium 4.2 mmol/L (3.5-5.1)
== END ==
LOC: PROCWHC3 08:46
PROVIDERS: ATTEND Psychiatry & Neurology Neurology
DX: G61.81 Chronic inflammatory demyelinating polyneuritis (principal)
CPT/HCPCS: 80048; 96365; 96366; J1642; J1459

== ENCOUNTER → 2022-10-06 | Outpatient (CLI) | payer MEDICARE, OTHER ==
[2022-10-06 09:47] VITALS: RESP 16; TEMP 97.7
[2022-10-06 09:49] LABS: Basophils % (A) 1 %; Eosinophils # (A) 0.1 k/uL (0-0.7); Eosinophils % (A) 2 %; HCT 35.9 % (34.0-46.0); Lymphocytes % (A) 22 %; MCH 31.3 pg (25.0-35.0); MCHC 33.5 g/dL (31.0-37.0); MCV 93.6 fL (80.0-100.0); Mean Platelet Volume 8.2; Monocytes # (A) 0.2 k/uL (0-1.0); Monocytes % (A) 4 %; Neutrophils # (A) 3.3 k/uL (1.3-7.7); Neutrophils % (A) 71 %; Platelet Count 190 k/uL (150-450); RBC 3.84 m/uL (3.80-5.40); RDW 12.9 % (11.5-15.5); WBC 4.6 k/uL (3.8-10.6)
[2022-10-06 09:54] VITALS: BP 126/63; PULSE 50
[2022-10-06 10:53] LABS: ALT 19 U/L (4-34); AST 28 U/L (14-36); African American GFR (CKD) 76 (>60 ml/min/1.73 sqM); Albumin 4.1 g/dL (3.5-5.0); Alkaline Phosphatase 117 U/L (38-126); Anion Gap 10 mmol/L; Blood Urea Nitrogen 19 mg/dL (7-17); Calcium 9.1 mg/dL (8.4-10.2); Carbon Dioxide 26 mmol/L (22-30); Chloride 104 mmol/L (98-107); Glucose 184 mg/dL (74-99); Non-African American GFR(CKD) 66 (>60 ml/min/1.73 sqM); Potassium 4.1 mmol/L (3.5-5.1); Sodium 140 mmol/L (137-145); Total Bilirubin 0.4 mg/dL (0.2-1.3); Total Protein 7.2 g/dL (6.3-8.2)
[2022-10-06 11:09] LABS: T4, Free (Free Thyroxine) 1.28 ng/dL (0.78-2.19)
[2022-10-06 14:12] LABS: ALT 18 U/L (4-34); AST 26 U/L (14-36); African American GFR (CKD) 63 (>60 ml/min/1.73 sqM); Albumin 3.9 g/dL (3.5-5.0); Alkaline Phosphatase 107 U/L (38-126); Anion Gap 8 mmol/L; Blood Urea Nitrogen 19 mg/dL (7-17); Calcium 8.9 mg/dL (8.4-10.2); Carbon Dioxide 24 mmol/L (22-30); Chloride 106 mmol/L (98-107); Glucose 159 mg/dL (74-99); Non-African American GFR(CKD) 55 (>60 ml/min/1.73 sqM); Potassium 4.4 mmol/L (3.5-5.1); Sodium 138 mmol/L (137-145); Total Bilirubin 0.4 mg/dL (0.2-1.3); Total Protein 7.8 g/dL (6.3-8.2)
[2022-10-06 16:47] LABS: Chol/HDL Ratio 3.58 Ratio; LDL Cholesterol,Calculated 130.6 mg/dL (0.0-131.0)
== END ==
LOC: PROCWHC3 09:09
PROVIDERS: ATTEND Psychiatry & Neurology Neurology
DX: G61.81 Chronic inflammatory demyelinating polyneuritis (principal); I10 Essential (primary) hypertension; E03.9 Hypothyroidism, unspecified; E11.22 Type 2 diabetes mellitus with diabetic chronic kidney disease; E78.2 Mixed hyperlipidemia
CPT/HCPCS: 84439; 80061; 80053; 84443; 85025; 83036; 96365; 96366; J1642; J1459; 36591

== ENCOUNTER → 2022-12-29 | Outpatient (CLI) | payer MEDICARE, OTHER ==
[2022-12-29 09:04] VITALS: RESP 16; TEMP 97.6
[2022-12-29 09:27] VITALS: BP 125/74; PULSE 62
[2022-12-29 09:41] LABS: African American GFR (CKD) 86 (>60 ml/min/1.73 sqM); Anion Gap 11 mmol/L; Blood Urea Nitrogen 23 mg/dL (7-17); Calcium 9.8 mg/dL (8.4-10.2); Carbon Dioxide 26 mmol/L (22-30); Chloride 104 mmol/L (98-107); Glucose 107 mg/dL (74-99); Non-African American GFR(CKD) 75 (>60 ml/min/1.73 sqM); Potassium 4.6 mmol/L (3.5-5.1); Sodium 141 mmol/L (137-145)
== END ==
LOC: PROCWHC3 08:45
PROVIDERS: ATTEND Psychiatry & Neurology Neurology
DX: G61.81 Chronic inflammatory demyelinating polyneuritis (principal); E11.22 Type 2 diabetes mellitus with diabetic chronic kidney disease; E78.2 Mixed hyperlipidemia; E03.9 Hypothyroidism, unspecified
CPT/HCPCS: 80048; 96365; 96366; J1642; J1459; 36591

== ENCOUNTER → 2023-02-09 | Outpatient (CLI) | payer MEDICARE, OTHER ==
[2023-02-09] MEDS: SODIUM CHLORIDE 0.9% 500 ML 500 ML in EMPTY BAG 1 BAG IV PRN ×2 (08:49→09:00)
[2023-02-09] MEDS: IMMUNE GLOBULIN IV NR ×2 (08:49→09:05)
[2023-02-09 09:35] LABS: African American GFR (CKD) 78 (>60 ml/min/1.73 sqM); Anion Gap 13 mmol/L; Blood Urea Nitrogen 19 mg/dL (7-17); Calcium 9.1 mg/dL (8.4-10.2); Carbon Dioxide 21 mmol/L (22-30); Chloride 104 mmol/L (98-107); Glucose 163 mg/dL (74-99); Non-African American GFR(CKD) 68 (>60 ml/min/1.73 sqM); Sodium 138 mmol/L (137-145)
[2023-02-09 09:43] VITALS: BP 132/69; PULSE 54; RESP 16; TEMP 97.7
[2023-02-09 13:37] LABS: African American GFR (CKD) 50 (>60 ml/min/1.73 sqM); Anion Gap 10 mmol/L; Blood Urea Nitrogen 18 mg/dL (7-17); Calcium 9.8 mg/dL (8.4-10.2); Carbon Dioxide 24 mmol/L (22-30); Chloride 102 mmol/L (98-107); Glucose 165 mg/dL (74-99); Non-African American GFR(CKD) 44 (>60 ml/min/1.73 sqM); Potassium 4.5 mmol/L (3.5-5.1); Sodium 136 mmol/L (137-145)
== END ==
LOC: PROCWHC3 08:38
PROVIDERS: ATTEND Psychiatry & Neurology Neurology
DX: G61.81 Chronic inflammatory demyelinating polyneuritis (principal)
CPT/HCPCS: 80048; 96365; 96366; J1459

== ENCOUNTER 2023-02-22 09:43 | Day surgery (SDC) | payer MEDICARE, OTHER ==
[~2023-02-22 09:43] MED LIST changes: +ACETAMINOPHEN TAB 500 MG TAB PO PRN; +DEXAMETHASONE SOD PHOSPHATE 4 MG/ML 1 ML VIAL IV ONE; +HEPARIN SODIUM,PORCINE/PF 5,000 UNIT/0.5 ML SYRINGE SQ PRN; +HYDROmorphone 0.5 MG/0.5 ML SYRINGE IVP PRN; -IMMUNE GLOBULIN IV NR; +LACTATED RINGERS 1,000 ML IV SCH; +LIDOCAINE 1% (10MG/ML) FOR IV START INTRADERMA PRN; +ONDANSETRON 4 MG/2 ML VIAL IVP PRN; -SODIUM CHLORIDE 0.9% 500 ML 500 ML in EMPTY BAG 1 BAG IV PRN
[2023-02-22 10:24] LABS: Glucose,Whole Blood 113 mg/dL (70-110)
[2023-02-22 10:27] VITALS: RESP 16
--- NOTE | 2023-02-22 11:08 | P.GSHP ---
History of Present Illness H&P Date: 02/22/23 Chief Complaint: Malfunctioning Port-A-Cath 77-year-old female here today for removal and replacement of Port-A-Cath. Patient is on chronic immune therapy for Guillain-Nieto. Current Port-A-Cath right side has been there for the last 7 years or so. No wishes until recently. During injection noticed swelling at the neck site recently. No pain there. Previous port was on the left-hand side. That also lasted about 7-8 years. Past Medical History Past Medical History: GERD/Reflux, Hyperlipidemia, Hypertension, Osteoarthritis (OA), Pneumonia, Thyroid Disorder Additional Past Medical History / Comment(s): Spinal stenosis. CHRONIC BACK PAIN, RADIATING TO BOTH THIGHS. 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 USES WALKER FOR LONG DISTANCES. PERIPHERAL EDEMA. IRREG HR, URINARY LEAKAGE,"PREDIABETIC". Leaky heart valve. Hx of migraines but none since sinus surgery. Hypothyroid. neuropathy bilateral legs/feet History of Any Multi-Drug Resistant Organisms: None Reported Past Surgical History: Back Surgery, Heart Catheterization, Joint Replacement, Orthopedic Surgery, Tubal Ligation Additional Past Surgical History / Comment(s): 08/15/15 Exploration of lumbar fusion and lumbar lami with decompression fusion L1-L2. Other surgical HX: Lumbar laminectomy L2-S1, SHORTY KNEE REPLACEMENTS,LAP BAND 2005, SINUS SURGERY,"PLUGGED" PORTACATH LT CHEST 2013 med port - rt side Past Anesthesia/Blood Transfusion Reactions: Postoperative Nausea & Vomiting (PONV) Smoking Status: Never smoker - Past Family History Mother Family Medical History: CVA/TIA Additional Family Medical History / Comment(s): Mother at the age of 92 yrs from complications with a CVA Father Family Medical History: Cancer Additional Family Medical History / Comment(s): colon cancer Brother(s) Family Medical History: Deep Vein Thrombosis (DVT) Medications and Allergies Home Medications Medication Instructions Recorded Confirmed Type Montelukast Sodium [Singulair] 10 mg PO 1700 01/01/14 02/22/23 History Sotalol HCl [Sotalol] 80 mg PO QAM 01/01/14 02/22/23 History amLODIPine BESYLATE [Amlodipine 5 mg PO 1700 01/01/14 02/22/23 History Besylate] Aspirin 81 mg PO HS 11/12/14 02/22/23 History Gabapentin 300 mg PO TID 08/06/15 02/22/23 History Ferrous Sulfate [Iron (65 MG 65 mg PO MOWEFR 09/11/15 02/22/23 History Elemental)] Furosemide [Lasix] 40 mg PO BID PRN 10/11/15 02/22/23 History Potassium Chloride ER [K-Dur 10] 10 mg PO BID 10/11/15 02/22/23 History calcitrioL [Calcitriol] 0.25 mcg PO MOTUWETH 04/06/17 02/22/23 History Cholecalciferol [Vitamin D3 (25 1,000 unit PO 1200 04/26/19 02/22/23 History Mcg = 1000 Iu)] Ergocalciferol [Vitamin D2] 50,000 unit PO QMONTH 04/26/19 02/22/23 History Levothyroxine Sodium [Synthroid] 150 mcg PO MOTUWETHFRSA 04/26/19 02/22/23 History predniSONE [Deltasone] 40 mg PO DIRECTED PRN 04/26/19 02/22/23 History Ivig 1 dose IV Q36D 05/09/19 02/22/23 History Ezetimibe [Zetia] 10 mg PO 1200 11/30/19 02/22/23 History [place]-3 Fatty Acids/Fish Oil [Fish 2 each PO QAM 11/30/19 02/22/23 History Oil 1,000 mg Softgel] traMADol HCl [Ultram] 100 tab PO TID 02/12/20 02/22/23 History Losartan [Cozaar] 25 mg PO QAM 07/01/21 02/22/23 History Acetaminophen [Tylenol] 325 mg PO Q4-6H PRN 02/17/23 02/22/23 History Cyanocobalamin (Vitamin B-12) 1,000 mcg PO 1200 02/17/23 02/22/23 History [Vitamin B-12] Famotidine 20 mg PO QAM 02/17/23 02/22/23 History Gabapentin [Neurontin] 100 mg PO DAILY PRN 02/17/23 02/22/23 History Garlic 1,000 mg PO 1200 02/17/23 02/22/23 History metFORMIN HCL 500 mg PO AC-SUPPER 02/17/23 02/22/23 History Allergies Allergy/AdvReac Type Severity Reaction Status Date / Time adhesive tape Allergy Rash/Hives Verified 02/22/23 10:27 codeine Allergy Nausea & Verified 02/22/23 10:27 Vomiting Influenza Virus Vaccines Allergy caused Verified 02/22/23 10:27 Guillain barre Penicillins Allergy Rash/Hives Verified 02/22/23 10:27 Amdqlrc-TDS-BaM Reductase Allergy UNABLE TO Verified 02/22/23 10:27 Inhibitor WALK,GUILLAIN-BARRE [Ejkcmqv-Jis-Xax Reductase SYNDROME Inhibitor] Surgical - Exam Vital Signs Temp Pulse Resp BP Pulse Ox 98 F 82 16 132/81 96 02/22/23 10:06 02/22/23 10:06 02/22/23 10:06 02/22/23 10:06 02/22/23 10:06 Physical exam: General: Well-developed, well-nourished HEENT: Normocephalic, sclerae nonicteric Abdomen: Nontender, nondistended Extremities: No edema Neuro: Alert and oriented Results - Labs Abnormal Lab Results - Last 24 Hours (Table) 02/22/23 Range/Units 10:21 POC Glucose (mg/dL) 113 H (70-110) mg/dL Assessment and Plan (1) CIDP (chronic inflammatory demyelinating polyneuropathy) Narrative/Plan: 77-year-old female here for Port-A-Cath replacement. We'll proceed with removal and replacement with fluoroscopy and ultrasound guidance. Risks of bleeding, infection, DVT, pneumothorax, catheter malfunction, anesthesia related complications were discussed. The patient understands and wishes to proceed. Current Visit: No Status: Acute Code(s): G61.81 - CHRONIC INFLAMMATORY DEMYELINATING POLYNEURITIS SNOMED Code(s): 896795493
[2023-02-22] MEDS ORDERED: LIDOCAINE 1% INJ 10MG/ML (20 ML MDV) ONE (11:09)
[2023-02-22] MEDS ORDERED: ePHEDrine 50 MG/ML 1 ML VIAL ONE (11:09)
[2023-02-22] MEDS ORDERED: PROPOFOL 10 MG/ML 20 ML VIAL IV ONE (11:09)
[2023-02-22] MEDS ORDERED: MIDAZOLAM 2 MG/2 ML VIAL ONE (11:09)
[2023-02-22] MEDS ORDERED: GLYCOPYRROLATE 0.2 MG/ML 2 ML VIAL ONE (11:09)
[2023-02-22] MEDS ORDERED: fentaNYL (PF) 50 MCG/ML 2 ML AMP ONE (11:09)
[2023-02-22] MEDS ORDERED: LIDOCAINE 2% INJ 20 MG/ML SQ ONE ×2 (11:43)
[2023-02-22] MEDS ORDERED: NALOXONE 0.4 MG/ML 1 ML VIAL IV PRN (12:18)
[2023-02-22] MEDS ORDERED: traMADol 50 MG TAB PO PRN (12:18)
--- NOTE | 2023-02-22 12:23 | P.OP ---
Date of Procedure: 02/22/23 Procedure(s) Performed: PREOPERATIVE DIAGNOSIS: Guillain-Nieto POSTOPERATIVE DIAGNOSIS: Same PROCEDURE: Port-A-Cath removal and replacement with fluoroscopic and ultrasound guidance SURGEON: Elana EBL: Minimal ANESTHESIA: 5 mL COMPLICATIONS: None OPERATIVE PROCEDURE: Patient was brought and placed on the operative table in the supine position. The patient was placed under general anesthesia at that time. The chest and neck were prepped and draped in usual sterile fashion. The previous incision was re-incised using a scalpel. The port was easily excised using both blunt dissection sharp dissection and electrocautery. Previous catheter was inspected. There was a small slitlike tear in the catheter at the bend in the neck. The fibrin sheath was sutured closed using a 30 Vicryl stitch. The port pocket was quite healthy with approximately 1/4 inch of skin and subcutaneous tissue anterior to the previous port. I decided to use the same exact location for the new port to be placed. The ultrasound probe was used to identify the location of the right internal jugular vein. The skin was localized with lidocaine. The Seldinger needle was advanced into the IJ under ultrasound guidance. The wire was advanced through the needle under fluoroscopic guidance into the superior vena cava. The 8-Upper Sorbian catheter was tunneled from the wire entrance site to the port pocket. The port was then connected to the catheter. The dilator introducer was threaded over the guidewire. The guidewire and dilator were then removed. The catheter was advanced through the introducer and introducer was then removed. The tip was seen to be in the right atrial junction via fluoroscopy. A picture of the radiograph showing the tip of the catheter was taken. Port was flushed with both saline and a Hep-Lock solution. There was good flow both in and out of the port. The port was sutured in underlying tissues using 3-0 silk sutures. The subcutaneous tissues were reapproximated using 3-0 Vicryl sutures and the skin at both locations using 4-0 Monocryl sutures. Skin glue and sterile dressings then applied. DISPOSITION: Stable to recovery room
[2023-02-22 12:29] VITALS: TEMP 97
--- NOTE | 2023-02-22 13:01 | XR ---
EXAMINATION TYPE: XR chest 1V DATE OF EXAM: 02/22/2023 12:41 PM CLINICAL INDICATION:Female, 77 years old with history of check line; COMPARISON: Chest radiographs from 08/16/2015 TECHNIQUE: XR chest 1V Frontal view of the chest. FINDINGS: Lungs/Pleura: There is no evidence of pleural effusion, focal consolidation, or pneumothorax. Pulmonary vascularity: Unremarkable. Heart/mediastinum: Cardiomediastinal silhouette is unremarkable. Musculoskeletal: No acute osseous pathology. Other findings: None Lines/Tubes:Dylwfc-z-Akfm projecting over the right hemithorax with distal tip at the cavoatrial junc tion. IMPRESSION: No acute cardiopulmonary disease/process.
[2023-02-22 13:59] VITALS: BP 151/82; PULSE 75
--- NOTE | 2023-02-24 09:43 | FL ---
EXAMINATION TYPE: FL guided central line placemt HISTORY: Fluoroscopy time Impression: 1. Fluoroscopy support provided to the referring physician.
== END 2023-02-22 13:38 | disposition home or self-care (01) ==
LOC: OR 09:43
PROVIDERS: ATTEND Surgery
DX: T82.594A Other mechanical complication of infusion catheter, initial encounter (principal); G61.0 Guillain-Barre syndrome; G61.81 Chronic inflammatory demyelinating polyneuritis; E03.9 Hypothyroidism, unspecified; E78.5 Hyperlipidemia, unspecified; I10 Essential (primary) hypertension; K21.9 Gastro-esophageal reflux disease without esophagitis; M19.90 Unspecified osteoarthritis, unspecified site; Z88.0 Allergy status to penicillin; Z88.7 Allergy status to serum and vaccine; Z88.8 Allergy status to other drugs, medicaments and biological substances; Z98.84 Bariatric surgery status; Z79.82 Long term (current) use of aspirin; Z79.899 Other long term (current) drug therapy; Z79.84 Long term (current) use of oral hypoglycemic drugs; Y83.8 Other surgical procedures as the cause of abnormal reaction of the patient, or of later complication, without mention of misadventure at the time of the procedure
CPT/HCPCS: 77001; 71045; 36590; C1788; J2001 ×2; J2250; J1100; J0690; J2405; J3010; J2704; J1644

== ENCOUNTER → 2023-02-25 | Outpatient (CLI) | payer MEDICARE, OTHER ==
[2023-02-25 16:18] LABS: Basophils # (A) 0.09 X 10*3/uL (0.00-0.10); Basophils % (A) 1.1 %; Eosinophils # (A) 0.21 X 10*3/uL (0.04-0.35); Eosinophils % (A) 2.7 %; HCT 43.9 % (37.2-46.3); HGB 14.5 g/dL (12.0-15.0); Lymphocytes # (A) 2.39 X 10*3/uL (0.90-5.00); Lymphocytes % (A) 30.4 %; MCH 30.3 pg (27.0-32.0); MCV 91.6 FL (80.0-97.0); Mean Platelet Volume 11.6 FL (9.5-12.2); Monocytes # (A) 0.62 X 10*3/uL (0.20-1.00); Monocytes % (A) 7.9 %; NRBC Per 100 WBC 0 X 10*3/uL (0.00-0.01); Neutrophils # (A) 4.52 X 10*3/uL (1.80-7.70); Neutrophils % (A) 57.6 %; Platelet Count 245 X 10*3/uL (140-440); RBC 4.79 X 10*6/uL (4.10-5.20); WBC 7.85 X 10*3/uL (4.50-10.00)
[2023-02-25 17:05] LABS: % Iron Saturation 36.22 (12.00-45.00); ALT 19 U/L (8-44); AST 23 U/L (13-35); Albumin 4.2 g/dL (3.8-4.9); Albumin/Globulin Ratio 1.31 Ratio (1.60-3.17); Alkaline Phosphatase 120 U/L (41-126); BUN/Creat Ratio 20.17 Ratio (12.00-20.00); Blood Urea Nitrogen 24.2 mg/dL (9.0-27.0); Calcium 10.5 mg/dL (8.7-10.3); Chloride 100 mmol/L (96-109); Globulin 3.2 g/dL (1.6-3.3); Glucose 102 mg/dL (70-110); Iron 113 UG/DL (50-170); Magnesium 2.1 mg/dL (1.5-2.4); Phosphorus 3.8 mg/dL (2.4-5.1); Potassium 5.6 mmol/L (3.5-5.5); Sodium 139 mmol/L (135-145); T4, Free (Free Thyroxine) 1.47 ng/dL (0.80-1.80); Total Bilirubin 0.2 mg/dL (0.3-1.2); Total Iron Binding Capacity 312 UG/DL (228-460); Total Protein 7.4 g/dL (6.2-8.2); Uric Acid 5.1 mg/dL (2.9-7.7)
[2023-02-25 17:16] LABS: Appearance,Urine Cloudy (Clear); Bilirubin,Urine Negative (Negative); Blood,Urine Negative (Negative); Color,Urine Yellow (Yellow); Ketones,Urine Negative (Negative); Nitrite,Urine Negative (Negative); PH, Urine 6.5; Specific Gravity,Urine 1.017 (1.001-1.030); Urobilinogen,Urine 0.2 E.U./DL
[2023-02-25 18:01] LABS: Bacteria,Urine None Seen (None Seen)
[2023-02-25 18:34] LABS: Microalbumin Creatinine Ratio <10 mg/g Cr (0-30)
== END | disposition home or self-care (01) ==
LOC: LABWHC1 10:41
PROVIDERS: ATTEND Internal Medicine Geriatric Medicine
DX: E03.9 Hypothyroidism, unspecified (principal); E11.22 Type 2 diabetes mellitus with diabetic chronic kidney disease; E55.9 Vitamin D deficiency, unspecified; D63.1 Anemia in chronic kidney disease; N39.0 Urinary tract infection, site not specified; N18.2 Chronic kidney disease, stage 2 (mild); M10.9 Gout, unspecified; R80.9 Proteinuria, unspecified
CPT/HCPCS: 36415; 80053; 81001; 82043; 82306; 82570; 82728; 83036; 83540; 83550; 83735; 83970; 84100; 84439; 84443; 84550; 85025

== ENCOUNTER → 2023-03-23 | Outpatient (CLI) | payer MEDICARE, OTHER ==
[~2023-03-23] MED LIST changes: -ACETAMINOPHEN TAB 500 MG TAB PO PRN; -DEXAMETHASONE SOD PHOSPHATE 4 MG/ML 1 ML VIAL IV ONE; -HEPARIN SODIUM,PORCINE/PF 5,000 UNIT/0.5 ML SYRINGE SQ PRN; -HYDROmorphone 0.5 MG/0.5 ML SYRINGE IVP PRN; +IMMUNE GLOBULIN IV NR; -LACTATED RINGERS 1,000 ML IV SCH; -LIDOCAINE 1% (10MG/ML) FOR IV START INTRADERMA PRN; -ONDANSETRON 4 MG/2 ML VIAL IVP PRN; +SODIUM CHLORIDE 0.9% 500 ML 500 ML in EMPTY BAG 1 BAG IV PRN
[2023-03-23 09:06] VITALS: RESP 16; TEMP 97.7
[2023-03-23 09:30] VITALS: BP 127/74; PULSE 66
[2023-03-23 10:28] LABS: African American GFR (CKD) 80 (>60 ml/min/1.73 sqM); Anion Gap 12 mmol/L; Blood Urea Nitrogen 22 mg/dL (7-17); Calcium 9.3 mg/dL (8.4-10.2); Carbon Dioxide 25 mmol/L (22-30); Chloride 104 mmol/L (98-107); Glucose 166 mg/dL (74-99); Non-African American GFR(CKD) 70 (>60 ml/min/1.73 sqM); Potassium 4.2 mmol/L (3.5-5.1); Sodium 141 mmol/L (137-145)
[2023-03-23 13:45] LABS: African American GFR (CKD) 40 (>60 ml/min/1.73 sqM); Anion Gap 10 mmol/L; Blood Urea Nitrogen 21 mg/dL (7-17); Carbon Dioxide 25 mmol/L (22-30); Chloride 100 mmol/L (98-107); Glucose 188 mg/dL (74-99); Non-African American GFR(CKD) 34 (>60 ml/min/1.73 sqM); Potassium 4.4 mmol/L (3.5-5.1); Sodium 135 mmol/L (137-145)
== END ==
LOC: PROCWHC3 08:37
PROVIDERS: ATTEND Psychiatry & Neurology Neurology
DX: G61.81 Chronic inflammatory demyelinating polyneuritis (principal)
CPT/HCPCS: 80048; 96365; 96366; J1642; J1459

== ENCOUNTER → 2023-05-04 | Outpatient (CLI) | payer MEDICARE, OTHER ==
[2023-05-04] MEDS: SODIUM CHLORIDE 0.9% 500 ML 500 ML in EMPTY BAG 1 BAG IV PRN (09:00)
[2023-05-04] MEDS: IMMUNE GLOBULIN IV NR (09:10)
[2023-05-04 09:35] LABS: African American GFR (CKD) 68 (>60 ml/min/1.73 sqM); Anion Gap 8 mmol/L; Blood Urea Nitrogen 16 mg/dL (7-17); Calcium 9.8 mg/dL (8.4-10.2); Carbon Dioxide 27 mmol/L (22-30); Chloride 103 mmol/L (98-107); Glucose 127 mg/dL (74-99); Non-African American GFR(CKD) 59 (>60 ml/min/1.73 sqM); Potassium 4.1 mmol/L (3.5-5.1); Sodium 138 mmol/L (137-145)
[2023-05-04 09:37] VITALS: RESP 16; TEMP 97.6
[2023-05-04 10:06] VITALS: BP 112/71; PULSE 48
[2023-05-04 13:58] LABS: African American GFR (CKD) 54 (>60 ml/min/1.73 sqM); Anion Gap 6 mmol/L; Blood Urea Nitrogen 16 mg/dL (7-17); Calcium 9.5 mg/dL (8.4-10.2); Carbon Dioxide 28 mmol/L (22-30); Chloride 103 mmol/L (98-107); Glucose 92 mg/dL (74-99); Non-African American GFR(CKD) 46 (>60 ml/min/1.73 sqM); Potassium 3.9 mmol/L (3.5-5.1); Sodium 137 mmol/L (137-145)
== END ==
LOC: PROCWHC3 08:42
PROVIDERS: ATTEND Psychiatry & Neurology Neurology
DX: G61.81 Chronic inflammatory demyelinating polyneuritis (principal)
CPT/HCPCS: 80048; 96365; 96366; J1642; J1459

== ENCOUNTER → 2023-05-18 | Outpatient (CLI) | payer MEDICARE, OTHER ==
--- NOTE | 2023-05-18 22:21 | BD ---
EXAMINATION TYPE: Axial Bone Density DATE OF EXAM: 05/18/2023 CLINICAL HISTORY: 78 years old Female. ICD-10 CODE: M89.9 DISORDER OF BONE, UNSPECIFIED Height: 61 Weight: 231 FRAX RISK QUESTIONS: Glucocorticoids (More than 3mos): prednisone, routine every 6 weeks, (Ex: prednisone, prednisolone, methylprednisolone, dexamethasone, and hydrocortisone). 3. 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 rods and plates in lumbar and thoracic spine, not scanned. Bone mineral density about the R hip (g/cm2): 0.969 Bone mineral density about the L hip (g/cm2): 1.024 T Score values are as follows: -----R Neck: 0.0 -----L Neck: 0.4 -----R Total: -0.3 -----L Total: 0.1 Z Score values are as follows: -----R Neck: 1.3 -----L Neck: 1.6 -----R Total: 0.6 -----L Total: 1.1 Bone mineral density is a baseline study today. Bone mineral density about the L Wrist (g/cm2): 0.678 T Score values are as follows: -----Dist. R+U: 1.2 -----Prox. R+U: -0.6 -----Radius total: 0.3 Z Score values are as follows: -----Dist. R+U: 3.6 -----Prox. R+U: 1.8 -----Radius total: 2.6 Bone mineral density is her first DEXA study. FRAX%s: The graph provided illustrates a 10.3% chance for a major osteoporotic fx and a 1.0% chance f or the hips probability for fx in 10 years time. IMPRESSION: Normal (Values between +1 and -1 indicate normal bone mass). Consider repeating this study in 5 year s or sooner if there is some new clinical indication. NOTE: T-SCORE=SD OF THE YOUNG ADULT MEAN.
== END | disposition home or self-care (01) ==
LOC: RADBDWWP 12:29
PROVIDERS: ATTEND Internal Medicine Geriatric Medicine
DX: M89.9 Disorder of bone, unspecified (principal); Z78.0 Asymptomatic menopausal state
CPT/HCPCS: 77080

== ENCOUNTER → 2023-06-15 | Outpatient (CLI) | payer MEDICARE, OTHER ==
[2023-06-15] MEDS: IMMUNE GLOBULIN IV NR (09:23)
[2023-06-15] MEDS: SODIUM CHLORIDE 0.9% 500 ML 500 ML in EMPTY BAG 1 BAG IV PRN (09:23)
[2023-06-15 09:36] VITALS: TEMP 97.8
[2023-06-15 10:11] VITALS: BP 123/73; PULSE 49; RESP 14
[2023-06-15 10:13] LABS: African American GFR (CKD) 86 (>60 ml/min/1.73 sqM); Anion Gap 7 mmol/L; Blood Urea Nitrogen 18 mg/dL (7-17); Calcium 9.5 mg/dL (8.4-10.2); Carbon Dioxide 26 mmol/L (22-30); Chloride 106 mmol/L (98-107); Glucose 134 mg/dL (74-99); Non-African American GFR(CKD) 74 (>60 ml/min/1.73 sqM); Potassium 3.9 mmol/L (3.5-5.1); Sodium 139 mmol/L (137-145)
[2023-06-15 14:53] LABS: African American GFR (CKD) 64 (>60 ml/min/1.73 sqM); Anion Gap 8 mmol/L; Blood Urea Nitrogen 18 mg/dL (7-17); Calcium 9.3 mg/dL (8.4-10.2); Carbon Dioxide 25 mmol/L (22-30); Chloride 105 mmol/L (98-107); Glucose 169 mg/dL (74-99); Non-African American GFR(CKD) 56 (>60 ml/min/1.73 sqM); Potassium 4.4 mmol/L (3.5-5.1); Sodium 138 mmol/L (137-145)
== END ==
LOC: PROCWHC3 08:55
PROVIDERS: ATTEND Psychiatry & Neurology Neurology
DX: G61.81 Chronic inflammatory demyelinating polyneuritis (principal)
CPT/HCPCS: 80048; 96365; 96366; J1642; J1459

== ENCOUNTER → 2023-07-27 | Outpatient (CLI) | payer MEDICARE, OTHER ==
[2023-07-27] MEDS: SODIUM CHLORIDE 0.9% 500 ML 500 ML in EMPTY BAG 1 BAG IV PRN (09:14)
[2023-07-27] MEDS: IMMUNE GLOBULIN IV NR (09:15)
[2023-07-27 09:35] VITALS: BP 111/71; PULSE 46; RESP 16; TEMP 97.6
[2023-07-27 09:58] LABS: Basophils # (A) 0.1 k/uL (0-0.2); Basophils % (A) 2 %; Eosinophils # (A) 0.1 k/uL (0-0.7); Eosinophils % (A) 2 %; HGB 12.4 gm/dL (11.4-16.0); Lymphocytes % (A) 23 %; MCHC 33.6 g/dL (31.0-37.0); MCV 92.3 fL (80.0-100.0); Mean Platelet Volume 8.7; Monocytes # (A) 0.2 k/uL (0-1.0); Monocytes % (A) 5 %; Neutrophils % (A) 68 %; Platelet Count 182 k/uL (150-450); RBC 4.01 m/uL (3.80-5.40); RDW 12.8 % (11.5-15.5); WBC 4.3 k/uL (3.8-10.6)
[2023-07-27 10:32] LABS: ALT 20 U/L (4-34); AST 30 U/L (14-36); African American GFR (CKD) 82 (>60 ml/min/1.73 sqM); Albumin 3.9 g/dL (3.5-5.0); Alkaline Phosphatase 129 U/L (38-126); Anion Gap 4 mmol/L; Blood Urea Nitrogen 17 mg/dL (7-17); Calcium 9.2 mg/dL (8.4-10.2); Carbon Dioxide 29 mmol/L (22-30); Chloride 105 mmol/L (98-107); Glucose 155 mg/dL (74-99); Magnesium 1.9 mg/dL (1.6-2.3); Non-African American GFR(CKD) 71 (>60 ml/min/1.73 sqM); Phosphorus 2.3 mg/dL (2.5-4.5); Potassium 3.6 mmol/L (3.5-5.1); Sodium 138 mmol/L (137-145); Total Bilirubin 0.5 mg/dL (0.2-1.3); Total Protein 6.8 g/dL (6.3-8.2); Uric Acid 5.8 mg/dL (3.7-7.4)
[2023-07-27 12:01] LABS: Appearance,Urine Clear (Clear); Bilirubin,Urine Negative (Negative); Blood,Urine Negative (Negative); Color,Urine Colorless; Glucose,Urine (UA) Negative (Negative); Ketones,Urine Negative (Negative); Leukocyte Esterase,Urine Negative (Negative); Nitrite,Urine Negative (Negative); Protein,Urine Negative (Negative); Specific Gravity,Urine 1.006 (1.001-1.035); Urobilinogen,Urine <2.0 mg/dL (<2.0)
[2023-07-27 12:46] LABS: Creatinine,Urine Random 47.3 mg/dL; Protein/Creatinine Ratio,Urine 0.233
[2023-07-27 13:35] LABS: African American GFR (CKD) 37 (>60 ml/min/1.73 sqM); Anion Gap 6 mmol/L; Blood Urea Nitrogen 16 mg/dL (7-17); Calcium 9.1 mg/dL (8.4-10.2); Carbon Dioxide 28 mmol/L (22-30); Chloride 102 mmol/L (98-107); Glucose 203 mg/dL (74-99); Non-African American GFR(CKD) 32 (>60 ml/min/1.73 sqM); Potassium 3.9 mmol/L (3.5-5.1); Sodium 136 mmol/L (137-145)
[2023-07-27 16:23] LABS: % Iron Saturation 29.17 (12.00-45.00); Iron 84 UG/DL (50-170); Total Iron Binding Capacity 288 UG/DL (228-460)
[2023-07-27 18:54] LABS: Microalbumin Creatinine Ratio <26 mg/g Cr (0-30); Urine Creatinine 46.5 mg/dL (28.0-217.0)
[2023-07-28 00:06] LABS: DNA Double-Stranded Negative (Negative)
[2023-07-28 10:51] LABS: Free Kappa Lt Chain Qnt, Serum 2.01 mg/dL (0.33-1.94); Free Lambda Lt Chain Qnt, Seru 2.02 mg/dL (0.57-2.63)
[2023-07-28 14:14] LABS: C-ANCA <1:20 Titer (<1:20)
== END ==
LOC: PROCWHC3 08:44
PROVIDERS: ATTEND Psychiatry & Neurology Neurology
DX: G61.81 Chronic inflammatory demyelinating polyneuritis (principal); R80.9 Proteinuria, unspecified; N18.2 Chronic kidney disease, stage 2 (mild); D63.1 Anemia in chronic kidney disease; N39.0 Urinary tract infection, site not specified; E55.9 Vitamin D deficiency, unspecified; N25.81 Secondary hyperparathyroidism of renal origin; M10.9 Gout, unspecified
CPT/HCPCS: 86255; 86160 ×2; 86162; 82652; 82570 ×2; 80053; 80048; 84156; 82728; 83540; 83550; 83735; 84100; 84166; 84550; 85025; 81003; 83516; 82784 ×3; 82306; 86038; 86225; 83970; 82043; 86334; 83883; 96365; 96366; J1642; J1459

== ENCOUNTER → 2023-09-29 | Outpatient (CLI) | payer MEDICARE, OTHER ==
[2023-09-29 09:13] VITALS: RESP 16; TEMP 98.1
[2023-09-29] MEDS: SODIUM CHLORIDE 0.9% 500 ML 500 ML in EMPTY BAG 1 BAG IV PRN (09:20)
[2023-09-29] MEDS: IMMUNE GLOBULIN IV NR (09:21)
[2023-09-29 09:32] LABS: Basophils # (A) 0.1 k/uL (0-0.2); Basophils % (A) 1 %; Eosinophils # (A) 0.1 k/uL (0-0.7); Eosinophils % (A) 2 %; HCT 38.3 % (34.0-46.0); HGB 12.8 gm/dL (11.4-16.0); Lymphocytes # (A) 1.3 k/uL (1.0-4.8); Lymphocytes % (A) 23 %; MCH 31.3 pg (25.0-35.0); MCHC 33.4 g/dL (31.0-37.0); MCV 93.5 fL (80.0-100.0); Mean Platelet Volume 8.1; Monocytes # (A) 0.3 k/uL (0-1.0); Monocytes % (A) 6 %; Neutrophils # (A) 3.7 k/uL (1.3-7.7); Neutrophils % (A) 68 %; Platelet Count 217 k/uL (150-450); RBC 4.09 m/uL (3.80-5.40); RDW 12.5 % (11.5-15.5); WBC 5.5 k/uL (3.8-10.6)
[2023-09-29 09:42] VITALS: BP 116/70; PULSE 46
[2023-09-29 10:38] LABS: ALT 16 U/L (4-34); AST 28 U/L (14-36); African American GFR (CKD) 81 (>60 ml/min/1.73 sqM); Albumin 4.3 g/dL (3.5-5.0); Alkaline Phosphatase 118 U/L (38-126); Anion Gap 10 mmol/L; Blood Urea Nitrogen 19 mg/dL (7-17); Calcium 10.8 mg/dL (8.4-10.2); Carbon Dioxide 26 mmol/L (22-30); Chloride 109 mmol/L (98-107); Glucose 108 mg/dL (74-99); Non-African American GFR(CKD) 70 (>60 ml/min/1.73 sqM); Potassium 4.2 mmol/L (3.5-5.1); Sodium 145 mmol/L (137-145); Total Bilirubin 0.5 mg/dL (0.2-1.3); Total Protein 7.1 g/dL (6.3-8.2)
[2023-09-29 11:52] LABS: T4, Free (Free Thyroxine) 1.24 ng/dL (0.78-2.19)
[2023-09-29 14:23] LABS: African American GFR (CKD) 48 (>60 ml/min/1.73 sqM); Anion Gap 7 mmol/L; Blood Urea Nitrogen 18 mg/dL (7-17); Calcium 9.4 mg/dL (8.4-10.2); Carbon Dioxide 24 mmol/L (22-30); Chloride 105 mmol/L (98-107); Glucose 219 mg/dL (74-99); Non-African American GFR(CKD) 41 (>60 ml/min/1.73 sqM); Potassium 3.9 mmol/L (3.5-5.1); Sodium 136 mmol/L (137-145)
[2023-09-30 04:02] LABS: Chol/HDL Ratio 4.26 Ratio; LDL Cholesterol,Calculated 124.1 mg/dL (0.0-131.0)
== END ==
LOC: PROCWHC3 08:56
PROVIDERS: ATTEND Psychiatry & Neurology Neurology
DX: G61.81 Chronic inflammatory demyelinating polyneuritis (principal); E11.22 Type 2 diabetes mellitus with diabetic chronic kidney disease; E03.9 Hypothyroidism, unspecified; N18.2 Chronic kidney disease, stage 2 (mild); D63.1 Anemia in chronic kidney disease
CPT/HCPCS: 84439; 80061; 80053; 80048; 84443; 85025; 82784 ×3; 83036; 96365; 96366; J1642; J1459

== ENCOUNTER → 2023-10-14 | Outpatient (CLI) | payer MEDICARE, OTHER ==
--- NOTE | 2023-10-14 12:35 | XR ---
EXAMINATION TYPE: XR Hip Complete LT DATE OF EXAM: 10/14/2023 COMPARISON: 06/27/2012 HISTORY: Pain TECHNIQUE: 2 view left hip FINDINGS: Femoral head articulates with the acetabulum. No acute fracture or dislocation. Joint space is preserved. No significant interval change evident. Follow up exams can be performed as clinically indicated. IMPRESSION: 1. Unremarkable 2 view left hip
== END | disposition home or self-care (01) ==
LOC: RADXRMAIN 11:59
PROVIDERS: ATTEND Nurse Practitioner Family
DX: M25.552 Pain in left hip (principal)
CPT/HCPCS: 73502

== ENCOUNTER → 2023-11-24 | Outpatient (CLI) | payer MEDICARE, OTHER ==
[~2023-11-24] MED LIST changes: -SODIUM CHLORIDE 0.9% 500 ML 500 ML in EMPTY BAG 1 BAG IV PRN
[2023-11-24] MEDS: SODIUM CHLORIDE 0.9% 500 ML 500 ML in EMPTY BAG 1 BAG IV PRN (09:14)
[2023-11-24] MEDS: IMMUNE GLOBULIN IV NR (09:18)
[2023-11-24 09:28] VITALS: RESP 16; TEMP 98.1
[2023-11-24 09:51] VITALS: BP 119/76; PULSE 57
[2023-11-24 10:11] LABS: African American GFR (CKD) 80 (>60 ml/min/1.73 sqM); Anion Gap 9 mmol/L; Blood Urea Nitrogen 20 mg/dL (7-17); Carbon Dioxide 25 mmol/L (22-30); Chloride 104 mmol/L (98-107); Glucose 175 mg/dL (74-99); Non-African American GFR(CKD) 69 (>60 ml/min/1.73 sqM); Potassium 4.2 mmol/L (3.5-5.1); Sodium 138 mmol/L (137-145)
[2023-11-24 13:58] LABS: African American GFR (CKD) 51 (>60 ml/min/1.73 sqM); Anion Gap 5 mmol/L; Blood Urea Nitrogen 19 mg/dL (7-17); Calcium 9.7 mg/dL (8.4-10.2); Carbon Dioxide 24 mmol/L (22-30); Chloride 104 mmol/L (98-107); Glucose 145 mg/dL (74-99); Non-African American GFR(CKD) 44 (>60 ml/min/1.73 sqM); Potassium 4.3 mmol/L (3.5-5.1); Sodium 133 mmol/L (137-145)
== END ==
LOC: PROCWHC3 08:51
PROVIDERS: ATTEND Psychiatry & Neurology Neurology
DX: G61.81 Chronic inflammatory demyelinating polyneuritis (principal)
CPT/HCPCS: 80048; 96365; 96366

== ENCOUNTER → 2024-01-04 | Outpatient (CLI) | payer MEDICARE, OTHER ==
[2024-01-04] MEDS: SODIUM CHLORIDE 0.9% 500 ML 500 ML in EMPTY BAG 1 BAG IV PRN (10:03)
[2024-01-04] MEDS: IMMUNE GLOBULIN IV NR (10:05)
[2024-01-04 10:16] VITALS: RESP 16; TEMP 98
[2024-01-04 10:23] LABS: Basophils % (A) 0 %; Eosinophils % (A) 1 %; HCT 36.8 % (34.0-46.0); HGB 12.5 gm/dL (11.4-16.0); Lymphocytes % (A) 16 %; MCHC 34.1 g/dL (31.0-37.0); MCV 90.9 fL (80.0-100.0); Mean Platelet Volume 8.8; Monocytes # (A) 0.2 k/uL (0-1.0); Monocytes % (A) 3 %; Neutrophils # (A) 5.1 k/uL (1.3-7.7); Neutrophils % (A) 80 %; Platelet Count 202 k/uL (150-450); RBC 4.05 m/uL (3.80-5.40); RDW 13.3 % (11.5-15.5); WBC 6.4 k/uL (3.8-10.6)
[2024-01-04 11:24] VITALS: BP 113/69; PULSE 51
[2024-01-04 13:16] LABS: Appearance,Urine Clear (Clear); Bilirubin,Urine Negative (Negative); Blood,Urine Negative (Negative); Color,Urine Colorless; Glucose,Urine (UA) Negative (Negative); Ketones,Urine Negative (Negative); Leukocyte Esterase,Urine Negative (Negative); Nitrite,Urine Negative (Negative); PH, Urine 5.5 (5.0-8.0); Protein,Urine Negative (Negative); Specific Gravity,Urine 1.009 (1.001-1.035); Urobilinogen,Urine <2.0 mg/dL (<2.0)
[2024-01-04 14:26] LABS: African American GFR (CKD) 56 (>60 ml/min/1.73 sqM); Anion Gap 4 mmol/L; Blood Urea Nitrogen 13 mg/dL (7-17); Calcium 9.6 mg/dL (8.4-10.2); Carbon Dioxide 28 mmol/L (22-30); Chloride 104 mmol/L (98-107); Glucose 141 mg/dL (74-99); Non-African American GFR(CKD) 49 (>60 ml/min/1.73 sqM); Potassium 4.1 mmol/L (3.5-5.1); Sodium 136 mmol/L (137-145)
[2024-01-04 15:45] LABS: % Iron Saturation 31.43 (12.00-45.00); ALT 14 U/L (8-44); AST 25 U/L (13-35); Albumin 4.2 g/dL (3.8-4.9); Alkaline Phosphatase 143 U/L (41-126); Calcium 9.5 mg/dL (8.7-10.3); Carbon Dioxide 23.3 mmol/L (21.6-31.8); Chloride 100 mmol/L (96-109); Chol/HDL Ratio 3.85 Ratio; Glucose 182 mg/dL (70-110); Iron 88 UG/DL (50-170); LDL Cholesterol,Calculated 126.2 mg/dL (0.0-131.0); Magnesium 1.9 mg/dL (1.5-2.4); Phosphorus 2.1 mg/dL (2.4-5.1); Potassium 3.7 mmol/L (3.5-5.5); Sodium 139 mmol/L (135-145); T4, Free (Free Thyroxine) 1.39 ng/dL (0.80-1.80); Total Bilirubin 0.3 mg/dL (0.3-1.2); Total Iron Binding Capacity 280 UG/DL (228-460)
[2024-01-04 19:15] LABS: Microalbumin Creatinine Ratio <15 mg/g Cr (0-30); Urine Creatinine 78.2 mg/dL (28.0-217.0)
[2024-01-06 14:47] LABS: Free Kappa Lt Chain Qnt, Serum 1.81 mg/dL (0.33-1.94); Free Lambda Lt Chain Qnt, Seru 1.54 mg/dL (0.57-2.63)
== END ==
LOC: PROCWHC3 09:15
PROVIDERS: ATTEND Psychiatry & Neurology Neurology
DX: G61.81 Chronic inflammatory demyelinating polyneuritis (principal); N18.2 Chronic kidney disease, stage 2 (mild); D63.1 Anemia in chronic kidney disease; N39.0 Urinary tract infection, site not specified; E55.9 Vitamin D deficiency, unspecified; N25.81 Secondary hyperparathyroidism of renal origin; M10.9 Gout, unspecified
CPT/HCPCS: 80048; 80053; 80061; 81003; 82043; 82306; 82570; 82728; 83036; 83540; 83550; 83735; 83883; 83970; 84100; 84166; 84439; 84443; 84550; 85025; 86334; 96365; 96366

== ENCOUNTER → 2024-02-02 | Outpatient (CLI) | payer MEDICARE, OTHER ==
--- NOTE | 2024-02-02 12:57 | US ---
EXAMINATION TYPE: US kidneys/renal and bladder DATE OF EXAM: 02/02/2024 COMPARISON: 06/05/22 CLINICAL INDICATION: Female, 78 years old with history of N18.2 CKD; CKD TECHNIQUE: Grayscale imaging of the bilateral kidneys and urinary bladder: FINDINGS: EXAM MEASUREMENTS: Right Kidney: 9.9 x 5.1 x 4.9 cm Left Kidney: 9.7 x 4.6 x 5.3 cm Right Kidney: No hydronephrosis or masses seen Left Kidney: No hydronephrosis or masses seen Bladder: mostly contracted Bilateral Jets seen: No There is no evidence for hydronephrosis at this point in time. No nephrolithiasis is seen. No herberth s are identified. The urinary bladder is anechoic. IMPRESSION: No significant abnormality. [facility], , 02/02/2024 12:54 PM
== END | disposition home or self-care (01) ==
LOC: RADUSWWP 10:16
PROVIDERS: ATTEND Internal Medicine
DX: N18.2 Chronic kidney disease, stage 2 (mild) (principal)
CPT/HCPCS: 76770

== ENCOUNTER → 2024-02-15 | Outpatient (CLI) | payer MEDICARE, OTHER ==
[~2024-02-15] MED LIST changes: -IMMUNE GLOBULIN IV NR; +SODIUM CHLORIDE 0.9% 250 ML in EMPTY BAG 1 BAG IV PRN
[2024-02-15 09:01] VITALS: PULSE 52; RESP 16; TEMP 97.9
[2024-02-15] MEDS: IMMUNE GLOBULIN IV NR (09:03)
[2024-02-15] MEDS: SODIUM CHLORIDE 0.9% 500 ML 500 ML in EMPTY BAG 1 BAG IV PRN (09:03)
[2024-02-15 09:23] VITALS: BP 111/70
[2024-02-15 10:06] LABS: African American GFR (CKD) 83 (>60 ml/min/1.73 sqM); Anion Gap 10 mmol/L; Blood Urea Nitrogen 22 mg/dL (7-17); Calcium 9.6 mg/dL (8.4-10.2); Carbon Dioxide 25 mmol/L (22-30); Chloride 103 mmol/L (98-107); Glucose 185 mg/dL (74-99); Non-African American GFR(CKD) 72 (>60 ml/min/1.73 sqM); Sodium 138 mmol/L (137-145)
[2024-02-15 13:32] LABS: African American GFR (CKD) 53 (>60 ml/min/1.73 sqM); Anion Gap 8 mmol/L; Blood Urea Nitrogen 21 mg/dL (7-17); Calcium 9.4 mg/dL (8.4-10.2); Carbon Dioxide 27 mmol/L (22-30); Chloride 101 mmol/L (98-107); Glucose 141 mg/dL (74-99); Non-African American GFR(CKD) 46 (>60 ml/min/1.73 sqM); Potassium 4.2 mmol/L (3.5-5.1); Sodium 136 mmol/L (137-145)
== END ==
LOC: PROCWHC3 08:47
PROVIDERS: ATTEND Psychiatry & Neurology Neurology
DX: G61.81 Chronic inflammatory demyelinating polyneuritis (principal)
CPT/HCPCS: 80048; 96365; 96366; J1642; J1459

== ENCOUNTER → 2024-03-30 | Outpatient (CLI) | payer MEDICARE, OTHER ==
[2024-03-30 08:47] VITALS: RESP 16; TEMP 97.9
[2024-03-30] MEDS: SODIUM CHLORIDE 0.9% 500 ML 500 ML in EMPTY BAG 1 BAG IV PRN (08:48)
[2024-03-30] MEDS: IMMUNE GLOBULIN IV NR (08:49)
[2024-03-30 09:01] LABS: Basophils % (A) 1 %; Eosinophils # (A) 0.1 k/uL (0-0.7); Eosinophils % (A) 1 %; HCT 37.1 % (34.0-46.0); HGB 12.3 gm/dL (11.4-16.0); Lymphocytes # (A) 1.1 k/uL (1.0-4.8); Lymphocytes % (A) 20 %; MCH 30.2 pg (25.0-35.0); MCHC 33.1 g/dL (31.0-37.0); MCV 91.3 fL (80.0-100.0); Mean Platelet Volume 7.9; Monocytes # (A) 0.2 k/uL (0-1.0); Monocytes % (A) 4 %; Neutrophils # (A) 3.8 k/uL (1.3-7.7); Neutrophils % (A) 72 %; Platelet Count 177 k/uL (150-450); RBC 4.07 m/uL (3.80-5.40); RDW 12.6 % (11.5-15.5); WBC 5.2 k/uL (3.8-10.6)
[2024-03-30 09:09] VITALS: BP 112/69; PULSE 55
[2024-03-30 10:27] LABS: ALT 15 U/L (4-34); AST 24 U/L (14-36); African American GFR (CKD) 75 (>60 ml/min/1.73 sqM); Albumin 4.3 g/dL (3.5-5.0); Alkaline Phosphatase 158 U/L (38-126); Anion Gap 10 mmol/L; Blood Urea Nitrogen 16 mg/dL (7-17); Calcium 9.4 mg/dL (8.4-10.2); Carbon Dioxide 28 mmol/L (22-30); Chloride 101 mmol/L (98-107); Glucose 141 mg/dL (74-99); Non-African American GFR(CKD) 65 (>60 ml/min/1.73 sqM); Phosphorus 2.4 mg/dL (2.5-4.5); Potassium 3.7 mmol/L (3.5-5.1); Sodium 139 mmol/L (137-145); Total Bilirubin 0.3 mg/dL (0.2-1.3)
[2024-03-30 10:41] LABS: T4, Free (Free Thyroxine) 1.26 ng/dL (0.78-2.19)
[2024-03-30 11:50] LABS: Appearance,Urine Clear (Clear); Bilirubin,Urine Negative (Negative); Blood,Urine Negative (Negative); Color,Urine Colorless; Glucose,Urine (UA) Negative (Negative); Ketones,Urine Negative (Negative); Leukocyte Esterase,Urine Negative (Negative); Nitrite,Urine Negative (Negative); PH, Urine 6.5 (5.0-8.0); Protein,Urine Negative (Negative); Specific Gravity,Urine 1.005 (1.001-1.035); Urobilinogen,Urine <2.0 mg/dL (<2.0)
[2024-03-30 13:26] LABS: African American GFR (CKD) 54 (>60 ml/min/1.73 sqM); Anion Gap 8 mmol/L; Blood Urea Nitrogen 15 mg/dL (7-17); Calcium 9.4 mg/dL (8.4-10.2); Carbon Dioxide 26 mmol/L (22-30); Chloride 103 mmol/L (98-107); Glucose 153 mg/dL (74-99); Non-African American GFR(CKD) 47 (>60 ml/min/1.73 sqM); Potassium 4.1 mmol/L (3.5-5.1); Sodium 137 mmol/L (137-145)
[2024-03-30 16:23] LABS: % Iron Saturation 32.33 (12.00-45.00); Chol/HDL Ratio 3.06 Ratio; Iron 97 UG/DL (50-170); Total Iron Binding Capacity 300 UG/DL (228-460); VLDL Calculation 18.94 mg/dL (5.00-40.00)
[2024-03-30 19:50] LABS: Microalbumin Creatinine Ratio <36 mg/g Cr (0-30); Urine Creatinine 33.6 mg/dL (28.0-217.0)
== END ==
LOC: PROCWHC3 08:21
PROVIDERS: ATTEND Psychiatry & Neurology Neurology
DX: G61.81 Chronic inflammatory demyelinating polyneuritis (principal); E11.22 Type 2 diabetes mellitus with diabetic chronic kidney disease; E03.9 Hypothyroidism, unspecified; N18.2 Chronic kidney disease, stage 2 (mild); D63.1 Anemia in chronic kidney disease; M10.9 Gout, unspecified; N39.0 Urinary tract infection, site not specified; E55.9 Vitamin D deficiency, unspecified; N25.81 Secondary hyperparathyroidism of renal origin; R80.9 Proteinuria, unspecified
CPT/HCPCS: 84439; 82652; 80061; 80053; 80048; 84443; 82728; 83540; 83550; 83735; 84100; 84550; 85025; 81003; 82306; 83970; 82043; 82570; 83036; 96365; 96366; J1642; J1459

== ENCOUNTER → 2024-04-12 | Outpatient (CLI) | payer MEDICARE, OTHER ==
--- NOTE | 2024-04-14 17:45 | XR ---
EXAMINATION TYPE: XR bone survey complete DATE OF EXAM: 04/12/2024 11:08 AM COMPARISON: None. CLINICAL INDICATION: Female, 78 years old with history of D47.2 MONOCLONAL GAMMOPATHY, pain TECHNIQUE: Multiple view(s) obtained. FINDINGS: Chest x-ray: Port is present on the right with the tip in the superior vena cava region. Heart size i s normal. Pulmonary vasculature is normal. No suspicious lytic lesions evident. No suspicious infiltr ates. 2 view cervical spine: Facet degenerative changes are present. No suspicious lytic or sclerotic lesio ns. C5-6 disc space narrowing is present. Anterior vertebral body spurring is present C5-6. Posterior spinal lamellar line is intact. Calvarium: 2 views of the skull were obtained. Ill-defined lytic area may be complex on the lateral p rojection. Small lytic area may be within the vertex on the frontal projection. Thoracic spine: No suspicious lytic or sclerotic lesions are evident. Fixation pedicle screws and rods present within the lumbar spine. Degenerative disc changes present a t T12-L1. Humerus: There may be a sclerotic area within the mid left humerus. Right humerus appears normal. AP pelvis: Sacroiliac joint degenerative change is present. No suspicious lytic or sclerotic lesions evident. Femurs: Femoral heads articulate with the acetabulum. Right knee prosthesis is present. Left knee pro sthesis is present. No suspicious lytic lesions within the bilateral femurs IMPRESSION: 1. Probable small lytic areas may be within the vertex of the calvarium and frontal and lateral proj ections. 2. There may be a small sclerotic area within the mid diaphyseal left humerus. [facility], Workstation: [facility], 04/14/2024 5:43 PM
== END | disposition home or self-care (01) ==
LOC: RADXRMAIN 10:16
PROVIDERS: ATTEND Internal Medicine Hematology & Oncology
DX: D47.2 Monoclonal gammopathy (principal); E05.90 Thyrotoxicosis, unspecified without thyrotoxic crisis or storm; I48.91 Unspecified atrial fibrillation; R73.03 Prediabetes
CPT/HCPCS: 77075

== ENCOUNTER 2024-06-14 08:17 | Day surgery (SDC) | payer MEDICARE, OTHER ==
[2024-06-13 11:20] VITALS: BMI 36.8
[~2024-06-14 08:17] MED LIST changes: +LACTATED RINGERS 1,000 ML IV SCH; -SODIUM CHLORIDE 0.9% 250 ML in EMPTY BAG 1 BAG IV PRN
[2024-06-14] MEDS: IV FLUID CONTINUATION 1,000 ML IV ONE (08:38)
--- NOTE | 2024-06-14 09:00 | P.GSHP ---
History of Present Illness H&P Date: 06/14/24 CHIEF COMPLAINT: GERD and colon screen HISTORY OF PRESENT ILLNESS: The patient is a 79-year-old female who presents with gastroesophageal reflux disease and need for colon screen. Upper and lower endoscopy were offered for further evaluation and management. PAST MEDICAL HISTORY: Please see list. PAST SURGICAL HISTORY: Please see list. MEDICATIONS: Please see list. ALLERGIES: Please see list. SOCIAL HISTORY: No illicit drug use FAMILY HISTORY: No reports of Crohn disease or ulcerative colitis. REVIEW OF ORGAN SYSTEMS: CONSTITUTIONAL: No reports of fevers or chills. GI: Denies any blood in stools or constipation. PHYSICAL EXAM: VITAL SIGNS: Stable GENERAL: Well-developed pleasant in no acute distress. HEENT: No scleral icterus. Extraocular movements grossly intact. Moist buccal mucosa. NECK: Supple without lymphadenopathy. CHEST: Unlabored respirations. Equal bilateral excursions. CARDIOVASCULAR: Regular rate and rhythm. Distal 2+ pulses. ABDOMEN: Soft, nondistended. MUSCULOSKELETAL: No clubbing, cyanosis, or edema. ASSESSMENT: 1. Gastroesophageal reflux disease 2. Colon screen. PLAN: 1. Recommend proceeding with an upper and lower endoscopy Past Medical History Past Medical History: Diabetes Mellitus, GERD/Reflux, Hearing Disorder / Deafness, Hyperlipidemia, Hypertension, Osteoarthritis (OA), Pneumonia, Thyroid Disorder Additional Past Medical History / Comment(s): Spinal stenosis, CHRONIC BACK PAIN, RADIATING TO BOTH THIGHS, GUILLAIN-BARRE SYNDROME gets Gamma globulin IV [id number], neuropathy bilateral feet and legs, PERIPHERAL EDEMA, IRREGULAR HR, URINARY LEAKAGE, leaky heart valve, hx of migraines but none since sinus surgery, hypothyroid, very mild felice loss. History of Any Multi-Drug Resistant Organisms: None Reported Past Surgical History: Back Surgery, Heart Catheterization, Joint Replacement, Orthopedic Surgery, Tubal Ligation Additional Past Surgical History / Comment(s): Exploration of lumbar fusion and lumbar laminectomy with decompression fusion L1-L2, lumbar laminectomy L2-S1, bilteral knee replacements, lap band 2006, sinus surgery, vdcl-e-jmvbcpav placed left chest and later removed, fwet-x-eabkjixi placed right chest, colonoscopy, EGD. Past Anesthesia/Blood Transfusion Reactions: Motion Sickness, Postoperative Nausea & Vomiting (PONV) Smoking Status: Never smoker - Past Family History Mother Family Medical History: CVA/TIA Additional Family Medical History / Comment(s): Mother at the age of 92 yrs from complications with a CVA Father Family Medical History: Cancer Additional Family Medical History / Comment(s): Colon cancer. Brother(s) Family Medical History: Cancer, Deep Vein Thrombosis (DVT) Additional Family Medical History / Comment(s): Skin cancer. Medications and Allergies Home Medications Medication Instructions Recorded Confirmed Type RX: Montelukast Sodium [Singulair] 10 mg PO 1200 01/01/14 06/14/24 History RX: Sotalol HCl [Sotalol] 80 mg PO QAM 01/01/14 06/14/24 History RX: Aspirin 81 mg PO HS 11/12/14 06/14/24 History RX: Gabapentin 300 mg PO TID 08/06/15 06/14/24 History RX: Ferrous Sulfate [Iron (65 MG 65 mg PO MOWEFR 09/11/15 06/14/24 History Elemental)] Furosemide [Lasix] 40 mg PO 1200 10/11/15 06/14/24 History RX: calcitrioL 0.25 mcg PO MOTH 04/06/17 06/14/24 History predniSONE [Deltasone] 40 mg PO DIRECTED PRN 04/26/19 06/14/24 History Ivig 1 dose IV Q42D 05/09/19 06/14/24 History Ezetimibe [Zetia] 10 mg PO 1200 11/30/19 06/14/24 History [place]-3 Fatty Acids/Fish Oil [Fish 2 each PO QAM 11/30/19 06/14/24 History Oil 1,000 mg Softgel] RX: traMADol HCl [Ultram] 100 tab PO TID 02/12/20 06/14/24 History RX: Losartan [Cozaar] 25 mg PO QAM 07/01/21 06/14/24 History Cyanocobalamin (Vitamin B-12) 1,000 mcg PO 1200 02/17/23 06/14/24 History [Vitamin B-12] RX: Famotidine 20 mg PO QAM 02/17/23 06/14/24 History RX: Gabapentin [Neurontin] 100 mg PO TID PRN 02/17/23 06/14/24 History RX: Garlic 1,000 mg PO 1200 02/17/23 06/14/24 History RX: metFORMIN HCL 500 mg PO QAM 02/17/23 06/14/24 History RX: Levothyroxine Sodium 125 mcg PO MOTUTHFRSA 06/13/24 06/14/24 History amLODIPine [Norvasc] 5 mg PO 1200 06/13/24 06/14/24 History clindamycin HCL [Cleocin HCl] 150 mg PO DIRECTED PRN 06/13/24 06/14/24 History Allergies Allergy/AdvReac Type Severity Reaction Status Date / Time adhesive tape Allergy Rash/Hives Verified 06/14/24 08:40 codeine Allergy Nausea & Verified 06/14/24 08:40 Vomiting Influenza Virus Vaccines Allergy caused Verified 06/14/24 08:40 Guillain barre Penicillins Allergy Rash/Hives Verified 06/14/24 08:40 Uacwigk-KXY-MjH Reductase Allergy UNABLE TO Verified 06/14/24 08:40 Inhibitor WALK,GUILLAIN-BARRE [Cjkoquh-Wzw-Scs Reductase SYNDROME Inhibitor]
[2024-06-14] MEDS ORDERED: GLYCOPYRROLATE 0.2 MG/ML 2 ML VIAL ONE (09:26)
[2024-06-14] MEDS ORDERED: LIDOCAINE 1% INJ 10MG/ML (20 ML MDV) ONE (09:26)
[2024-06-14] MEDS ORDERED: PROPOFOL 10 MG/ML 20 ML VIAL IV ONE (09:26)
[2024-06-14 09:28] LABS: Glucose,Whole Blood 73 mg/dL (70-110)
[2024-06-14 09:30] VITALS: TEMP 97.4
--- NOTE | 2024-06-14 09:57 | P.PCN ---
Date of Procedure: 06/14/24 Description of Procedure: PREOPERATIVE DIAGNOSIS: Dysphagia Gastroesophageal reflux disease Morbid obesity excess calories, BMI 36.4 POSTOPERATIVE DIAGNOSIS: Upper esophageal stenosis Presbyesophagus Presence of adjustable gastric band Duodenitis Gastroesophageal reflux disease OPERATION: Esophagogastroduodenoscopy with rigid dilator over the guidewire 57 Fr with dilation Esophagogastroduodenoscopy with cold forceps biopsies stomach/antrum, esophagus, duodenum SURGEON: Rose Marie Hale MD ANESTHESIA: MAC. INDICATIONS: The patient is a 79-year-old male who presents with with dysphagia and gastroesophageal reflux disease. Benefits and risks of the procedure were described. Informed consent was obtained. DESCRIPTION: The patient was brought into the endoscopy suite and laid in the left lateral decubitus position. After a timeout was confirmed, the procedure was initiated. An Olympus gastroscope was passed into the posterior oropharynx where an upper esophageal stenosis was identified. The scope was passed down to the distal esophagus. To address the upper esophageal stenosis, rigid dilator over guidewire was selected. Next using an Bulgarian rigid dilator, a guidewire was placed through the gastroscope. Next the scope was withdrawn. A 57-Sinhala rigid Bulgarian dilator was passed carefully along the posterior oropharynx to 50 cm and left in place for 2-3 minutes stretch. The dilator was withdrawn including the guidewire. The scope was reentered along the posterior oropharynx with no findings of full- thickness tear of the upper esophageal sphincter. Additional findings below. Within the stomach, cold forceps biopsies obtained. Biopsies obtained of duodenum including esophagus. The lower esophageal valve was evaluated with Hill grade 2 lower esophageal valve and presence of adjustable gastric band without erosion. LA grade B erosive esophagitis was identified. No full-thickness injury was encountered. The GI tract was desufflated. The patient tolerated the procedure well. FINDINGS: Upper esophageal stenosis dilated 57-Sinhala rigid dilator Diaphragmatic hiatus at 41 cm from the incisors Squamocolumnar junction 41 cm from the incisors. Mild gastritis with cold forceps biopsies obtained Duodenitis with biopsies obtained LA grade B erosive esophagitis Hill grade 2 lower esophageal valve. Presence of adjustable gastric band RECOMMENDATIONS: Upper endoscopy as needed
--- NOTE | 2024-06-14 10:23 | P.PCN ---
Date of Procedure: 06/14/24 Description of Procedure: PREOPERATIVE DIAGNOSIS: Personal history of colon polyps Colonoscopy screening POSTOPERATIVE DIAGNOSIS: Tubular adenoma ileocecal valve Tubular adenoma transverse colon Tubular adenoma descending colon Pandiverticulosis Internal hemorrhoids, grade 2 OPERATION: Colonoscopy to the ileocecal valve and appendiceal orifice, cecum Colonoscopy with hot snare polypectomy Colonoscopy with cold forceps biopsy SURGEON: Rose Marie Hale MD. ANESTHESIA: MAC. INDICATIONS: The patient is an 79-year-old male who presents personal history of colon polyps. Last colonoscopy 5 years. Benefits and risks were described and informed consent was obtained. DESCRIPTION OF PROCEDURE: The patient had undergone Sutab prep. The patient had been brought into the operating room and laid in the left lateral decubitus position. After adequate intravenous sedation, the rectum was examined with 2% lidocaine jelly. The prostate was unremarkable. External hemorrhoids were encountered. The rectal tone was within normal limits. No lesions were palpated in the rectal vault. An Olympus colonoscope was advanced until the cecum, ileocecal valve and appendiceal orifice were clearly viewed. The prep was fair. Sigmoid diverticulosis was encountered. Pandiverticulosis was also identified. Abdominal wall pressure was used to advance the scope colonic polyps were found and removed. No evidence of focal colitis was found. Retroflexion of the scope demonstrated grade 2 internal hemorrhoids without active bleeding or inflammation. The colon was desufflated. The patient had tolerated the procedure well. Withdrawal time was over 6 minutes. FINDINGS: Aronchick preparation quality scale 2+ (1-5) Internal hemorrhoids, grade 2 External hemorrhoids, grade 2. No arteriovenous malformations. Sigmoid diverticulosis Highly redundant sigmoid colon quad abdominal pressure. Removal of 3 4 polyps: - Snare polypectomy transverse colon x 2, 5 mm - 8 mm tubulovillous adenoma - Cold forceps biopsy at 30 cm from the anal verge, 4 mm adenoma, descending colon - Cold forceps biopsy at ileocecal valve, 3 mm adenoma. No focal colitis. RECOMMENDATIONS: Repeat colonoscopy 3 years, 2027 Plan - Discharge Summary Discharge Rx Participant: Yes New Discharge Prescriptions: Continue Montelukast Sodium [Singulair] 10 mg PO 1200 Sotalol HCl [Sotalol] 80 mg PO QAM Aspirin 81 mg PO HS Gabapentin 300 mg PO TID Ferrous Sulfate [Iron (65 MG Elemental)] 65 mg PO MOWEFR Furosemide [Lasix] 40 mg PO 1200 calcitrioL 0.25 mcg PO MOTH predniSONE [Deltasone] 40 mg PO DIRECTED PRN PRN Reason: Takes with IVIG Infusions Ivig 1 dose IV Q42D Ezetimibe [Zetia] 10 mg PO 1200 [place]-3 Fatty Acids/Fish Oil [Fish Oil 1,000 mg Softgel] 2 each PO QAM traMADol HCl [Ultram] 100 tab PO TID Losartan [Cozaar] 25 mg PO QAM Cyanocobalamin (Vitamin B-12) [Vitamin B-12] 1,000 mcg PO 1200 Famotidine 20 mg PO QAM amLODIPine [Norvasc] 5 mg PO 1200 Levothyroxine Sodium 125 mcg PO MOTUTHFRSA Garlic 1,000 mg PO 1200 Gabapentin [Neurontin] 100 mg PO TID PRN PRN Reason: Pain metFORMIN HCL 500 mg PO QAM clindamycin HCL [Cleocin] 150 mg PO DIRECTED PRN PRN Reason: Takes prior to dental work. Discharge Medication List Montelukast Sodium [Singulair] 10 mg PO 1200 01/01/14 [History] Sotalol HCl [Sotalol] 80 mg PO QAM 01/01/14 [History] Aspirin 81 mg PO HS 11/12/14 [History] Gabapentin 300 mg PO TID 08/06/15 [History] Ferrous Sulfate [Iron (65 MG Elemental)] 65 mg PO MOWEFR 09/11/15 [History] Furosemide [Lasix] 40 mg PO 1200 10/11/15 [History] calcitrioL 0.25 mcg PO MOTH 04/06/17 [History] predniSONE [Deltasone] 40 mg PO DIRECTED PRN 04/26/19 [History] Ivig 1 dose IV Q42D 05/09/19 [History] Ezetimibe [Zetia] 10 mg PO 1200 11/30/19 [History] [place]-3 Fatty Acids/Fish Oil [Fish Oil 1,000 mg Softgel] 2 each PO QAM 11/30/19 [History] traMADol HCl [Ultram] 100 tab PO TID 02/12/20 [History] Losartan [Cozaar] 25 mg PO QAM 07/01/21 [History] Cyanocobalamin (Vitamin B-12) [Vitamin B-12] 1,000 mcg PO 1200 02/17/23 [History] Famotidine 20 mg PO QAM 02/17/23 [History] Gabapentin [Neurontin] 100 mg PO TID PRN 02/17/23 [History] Garlic 1,000 mg PO 1200 02/17/23 [History] metFORMIN HCL 500 mg PO QAM 02/17/23 [History] Levothyroxine Sodium 125 mcg PO MOTUTHFRSA 06/13/24 [History] amLODIPine [Norvasc] 5 mg PO 1200 06/13/24 [History] clindamycin HCL [Cleocin] 150 mg PO DIRECTED PRN 06/13/24 [History] Follow up Appointment(s)/Referral(s): Rose Marie Hale MD [STAFF PHYSICIAN] - 07/11/24 1:15 pm Patient Instructions/Handouts: *Surgery [facility] - (Anesthesia) Discharge Instructions Outpatient Surgery, Colorectal Polyps (GEN), Diverticulosis Diet (GEN), Diverticulosis (GEN) Activity/Diet/Wound Care/Special Instructions: Repeat colonoscopy 3 years, 2027 Discharge Disposition: HOME SELF-CARE
[2024-06-14 10:25] VITALS: BP 136/64
[2024-06-14 10:40] VITALS: PULSE 49; RESP 16
== END 2024-06-14 11:17 | disposition home or self-care (01) ==
LOC: ORWHC2ENDO 08:17
PROVIDERS: ATTEND Surgery Plastic and Reconstructive Surgery
DX: Z12.11 Encounter for screening for malignant neoplasm of colon (principal); D12.0 Benign neoplasm of cecum; D12.3 Benign neoplasm of transverse colon; K57.30 Diverticulosis of large intestine without perforation or abscess without bleeding; K64.1 Second degree hemorrhoids; K64.4 Residual hemorrhoidal skin tags; K22.2 Esophageal obstruction; K29.50 Unspecified chronic gastritis without bleeding; K29.80 Duodenitis without bleeding; K22.89 Other specified disease of esophagus; K21.00 Gastro-esophageal reflux disease with esophagitis, without bleeding; K44.9 Diaphragmatic hernia without obstruction or gangrene; D72.820 Lymphocytosis (symptomatic); I10 Essential (primary) hypertension; E11.9 Type 2 diabetes mellitus without complications; E78.5 Hyperlipidemia, unspecified; E03.9 Hypothyroidism, unspecified; G61.0 Guillain-Barre syndrome; G62.9 Polyneuropathy, unspecified; M19.90 Unspecified osteoarthritis, unspecified site; H91.90 Unspecified hearing loss, unspecified ear; Z91.89 Other specified personal risk factors, not elsewhere classified; E66.01 Morbid (severe) obesity due to excess calories; Z68.36 Body mass index [BMI] 36.0-36.9, adult; Z79.890 Hormone replacement therapy; Z79.82 Long term (current) use of aspirin; Z79.84 Long term (current) use of oral hypoglycemic drugs; Z79.899 Other long term (current) drug therapy; Z86.0100 Personal history of colon polyps, unspecified; Z98.84 Bariatric surgery status; Z96.653 Presence of artificial knee joint, bilateral; Z80.0 Family history of malignant neoplasm of digestive organs; Z88.5 Allergy status to narcotic agent; Z88.0 Allergy status to penicillin; Z88.7 Allergy status to serum and vaccine; Z88.8 Allergy status to other drugs, medicaments and biological substances; Z91.048 Other nonmedicinal substance allergy status
CPT/HCPCS: 45380; 45385; 43239; 43248; 88305; J2003; J1642; J2704; J1596; 43249

== ENCOUNTER → 2024-06-21 | Outpatient (CLI) | payer MEDICARE, OTHER ==
[~2024-06-21] MED LIST changes: -LACTATED RINGERS 1,000 ML IV SCH; +SODIUM CHLORIDE 0.9% 250 ML in EMPTY BAG 1 BAG IV PRN
[2024-06-21] MEDS: SODIUM CHLORIDE 0.9% 500 ML 500 ML in EMPTY BAG 1 BAG IV PRN (09:29)
[2024-06-21] MEDS: IMMUNE GLOBULIN IV NR (09:32)
[2024-06-21 09:43] VITALS: RESP 16; TEMP 98.3
[2024-06-21 09:47] LABS: Basophils % (A) 0 %; Eosinophils % (A) 1 %; HCT 36.3 % (34.0-46.0); HGB 12.1 gm/dL (11.4-16.0); Lymphocytes # (A) 0.9 k/uL (1.0-4.8); Lymphocytes % (A) 18 %; MCH 30.2 pg (25.0-35.0); MCHC 33.3 g/dL (31.0-37.0); MCV 90.6 fL (80.0-100.0); Monocytes # (A) 0.2 k/uL (0-1.0); Monocytes % (A) 4 %; Neutrophils # (A) 3.7 k/uL (1.3-7.7); Neutrophils % (A) 76 %; Platelet Count 218 k/uL (150-450); RBC 4.01 m/uL (3.80-5.40); RDW 12.4 % (11.5-15.5); WBC 4.8 k/uL (3.8-10.6)
[2024-06-21 09:52] VITALS: BP 139/63; PULSE 52
[2024-06-21 10:11] LABS: ALT 15 U/L (4-34); AST 26 U/L (14-36); African American GFR (CKD) 82 (>60 ml/min/1.73 sqM); Albumin 4.2 g/dL (3.5-5.0); Alkaline Phosphatase 126 U/L (38-126); Anion Gap 7 mmol/L; Bilirubin, Delta 0.2 mg/dL (0.0-0.2); Bilirubin,Unconjugated 0.2 mg/dL (0.0-1.1); Blood Urea Nitrogen 17 mg/dL (7-17); Calcium 9.7 mg/dL (8.4-10.2); Carbon Dioxide 29 mmol/L (22-30); Chloride 102 mmol/L (98-107); Glucose 145 mg/dL (74-99); Non-African American GFR(CKD) 72 (>60 ml/min/1.73 sqM); Phosphorus 2.8 mg/dL (2.5-4.5); Sodium 138 mmol/L (137-145); Total Bilirubin 0.4 mg/dL (0.2-1.3); Total Protein 7.3 g/dL (6.3-8.2); Uric Acid 5.2 mg/dL (3.7-7.4)
[2024-06-21 10:14] LABS: Potassium 3.7 mmol/L (3.5-5.1)
[2024-06-21 10:28] LABS: T4, Free (Free Thyroxine) 1.63 ng/dL (0.78-2.19)
[2024-06-21 12:01] LABS: Appearance,Urine Clear (Clear); Bilirubin,Urine Negative (Negative); Blood,Urine Negative (Negative); Color,Urine Colorless; Glucose,Urine (UA) Negative (Negative); Ketones,Urine Negative (Negative); Leukocyte Esterase,Urine Negative (Negative); Nitrite,Urine Negative (Negative); Protein,Urine Negative (Negative); Specific Gravity,Urine 1.009 (1.001-1.035); Urobilinogen,Urine <2.0 mg/dL (<2.0)
[2024-06-21 13:58] LABS: African American GFR (CKD) 59 (>60 ml/min/1.73 sqM); Anion Gap 3 mmol/L; Blood Urea Nitrogen 16 mg/dL (7-17); Calcium 9.2 mg/dL (8.4-10.2); Carbon Dioxide 30 mmol/L (22-30); Chloride 103 mmol/L (98-107); Glucose 159 mg/dL (74-99); Non-African American GFR(CKD) 51 (>60 ml/min/1.73 sqM); Potassium 3.9 mmol/L (3.5-5.1); Sodium 136 mmol/L (137-145)
[2024-06-21 16:36] LABS: % Iron Saturation 34.19 (12.00-45.00); Iron 93 UG/DL (50-170); Total Iron Binding Capacity 272 UG/DL (228-460)
[2024-06-21 17:40] LABS: Microalbumin Creatinine Ratio <21 mg/g Cr (0-30); Urine Creatinine 57.8 mg/dL (28.0-217.0)
== END ==
LOC: PROCWHC3 08:55
PROVIDERS: ATTEND Psychiatry & Neurology Neurology
DX: D64.9 Anemia, unspecified (principal); E11.22 Type 2 diabetes mellitus with diabetic chronic kidney disease; N18.2 Chronic kidney disease, stage 2 (mild); D63.1 Anemia in chronic kidney disease; E03.9 Hypothyroidism, unspecified; R80.9 Proteinuria, unspecified; E55.9 Vitamin D deficiency, unspecified; N25.81 Secondary hyperparathyroidism of renal origin; M10.9 Gout, unspecified; N39.0 Urinary tract infection, site not specified
CPT/HCPCS: 84439; 80053; 80048; 82728; 82248; 83540; 83550; 83735; 84100; 84443; 84550; 85025; 81003; 82306; 83970; 82043; 82570; 83036; 96365; 96366; J1642; J1459

== ENCOUNTER → 2024-08-01 | Outpatient (CLI) | payer MEDICARE, OTHER ==
[~2024-08-01] MED LIST changes: +IMMUNE GLOBULIN IV NR
[2024-08-01 09:39] VITALS: TEMP 98.3
[2024-08-01] MEDS: IMMUNE GLOBULIN IV NR (09:40)
[2024-08-01] MEDS: SODIUM CHLORIDE 0.9% 500 ML 500 ML in EMPTY BAG 1 BAG IV PRN (09:42)
[2024-08-01 10:13] VITALS: BP 109/57; PULSE 73; RESP 16
[2024-08-01 10:21] LABS: African American GFR (CKD) 70 (>60 ml/min/1.73 sqM); Anion Gap 10 mmol/L; Blood Urea Nitrogen 18 mg/dL (7-17); Calcium 9.9 mg/dL (8.4-10.2); Carbon Dioxide 28 mmol/L (22-30); Chloride 102 mmol/L (98-107); Glucose 128 mg/dL (74-99); Non-African American GFR(CKD) 61 (>60 ml/min/1.73 sqM); Potassium 3.7 mmol/L (3.5-5.1); Sodium 140 mmol/L (137-145)
[2024-08-01 14:13] LABS: African American GFR (CKD) 57 (>60 ml/min/1.73 sqM); Anion Gap 9 mmol/L; Blood Urea Nitrogen 17 mg/dL (7-17); Calcium 9.9 mg/dL (8.4-10.2); Carbon Dioxide 29 mmol/L (22-30); Chloride 100 mmol/L (98-107); Glucose 141 mg/dL (74-99); Non-African American GFR(CKD) 49 (>60 ml/min/1.73 sqM); Sodium 138 mmol/L (137-145)
== END ==
LOC: PROCWHC3 09:03
PROVIDERS: ATTEND Psychiatry & Neurology Neurology
DX: G61.81 Chronic inflammatory demyelinating polyneuritis (principal)
CPT/HCPCS: 80048; 96365; 96366; J1642; J1459; 36591

== ENCOUNTER → 2024-09-12 | Outpatient (CLI) | payer MEDICARE, OTHER ==
[2024-09-12] MEDS: SODIUM CHLORIDE 0.9% 500 ML 500 ML in EMPTY BAG 1 BAG IV PRN (09:15)
[2024-09-12 09:16] VITALS: RESP 16; TEMP 98.1
[2024-09-12] MEDS: IMMUNE GLOBULIN IV NR (09:40)
[2024-09-12 09:48] LABS: African American GFR (CKD) 74 (>60 ml/min/1.73 sqM); Anion Gap 11 mmol/L; Blood Urea Nitrogen 22 mg/dL (7-17); Calcium 9.8 mg/dL (8.4-10.2); Carbon Dioxide 25 mmol/L (22-30); Chloride 104 mmol/L (98-107); Glucose 169 mg/dL (74-99); Non-African American GFR(CKD) 64 (>60 ml/min/1.73 sqM); Sodium 140 mmol/L (137-145)
[2024-09-12 10:04] VITALS: BP 110/69; PULSE 52
[2024-09-12 14:06] LABS: African American GFR (CKD) 56 (>60 ml/min/1.73 sqM); Anion Gap 10 mmol/L; Blood Urea Nitrogen 20 mg/dL (7-17); Calcium 9.5 mg/dL (8.4-10.2); Carbon Dioxide 26 mmol/L (22-30); Chloride 103 mmol/L (98-107); Glucose 138 mg/dL (74-99); Non-African American GFR(CKD) 49 (>60 ml/min/1.73 sqM); Potassium 4.1 mmol/L (3.5-5.1); Sodium 139 mmol/L (137-145)
== END ==
LOC: PROCWHC3 08:53
PROVIDERS: ATTEND Psychiatry & Neurology Neurology
DX: G61.81 Chronic inflammatory demyelinating polyneuritis (principal)
CPT/HCPCS: 80048; 96365; 96366; J1642; J1459; 36591

== ENCOUNTER → 2024-09-27 | Outpatient (CLI) | payer MEDICARE, OTHER ==
[2024-09-27 15:12] LABS: Basophils # (A) 0.06 X 10*3/uL (0.00-0.10); Basophils % (A) 1.2 %; Eosinophils # (A) 0.26 X 10*3/uL (0.04-0.35); Eosinophils % (A) 5.2 %; HCT 40.1 % (37.2-46.3); HGB 13.3 g/dL (12.0-15.0); Immature Grans, Automated 0.20 %; Lymphocytes # (A) 0.79 X 10*3/uL (0.90-5.00); Lymphocytes % (A) 15.8 %; MCH 30.2 pg (27.0-32.0); MCHC 33.2 g/dL (32.0-37.0); MCV 90.9 FL (80.0-97.0); Monocytes # (A) 0.50 X 10*3/uL (0.20-1.00); Monocytes % (A) 10.0 %; NRBC Per 100 WBC 0 X 10*3/uL (0.00-0.01); Neutrophils # (A) 3.39 X 10*3/uL (1.80-7.70); Neutrophils % (A) 67.6 %; Platelet Count 196 X 10*3/uL (140-440); RBC 4.41 X 10*6/uL (4.10-5.20); RDW 12.7 % (11.5-14.5); WBC 5.01 X 10*3/uL (4.50-10.00)
[2024-09-27 15:47] LABS: ALT 12 U/L (8-44); AST 28 U/L (13-35); Albumin 4.0 g/dL (3.8-4.9); Albumin/Globulin Ratio 1.21 Ratio (1.60-3.17); Alkaline Phosphatase 129 U/L (41-126); Anion Gap 14.40 mmol/L (4.00-12.00); BUN/Creat Ratio 13.00 Ratio (12.00-20.00); Blood Urea Nitrogen 11.7 mg/dL (9.0-27.0); Calcium 9.5 mg/dL (8.7-10.3); Carbon Dioxide 22.6 mmol/L (21.6-31.8); Chloride 102 mmol/L (96-109); Ferritin 313.0 ng/mL (10.0-291.0); Globulin 3.3 g/dL (1.6-3.3); Glucose 110 mg/dL (70-110); Iron 38 UG/DL (50-170); Magnesium 2.0 mg/dL (1.5-2.4); Potassium 4.3 mmol/L (3.5-5.5); Sodium 139 mmol/L (135-145); Total Iron Binding Capacity 274 UG/DL (228-460); Total Protein 7.3 g/dL (6.2-8.2); Uric Acid 4.6 mg/dL (2.9-7.7)
[2024-09-27 15:57] LABS: Bilirubin,Urine Negative (Negative); Blood,Urine Trace (Negative); Color,Urine Dark Yellow (Yellow); Ketones,Urine Trace (Negative); Nitrite,Urine Negative (Negative); PH, Urine 5.5; Specific Gravity,Urine 1.030 (1.001-1.030); Urobilinogen,Urine 1.0 E.U./DL
[2024-09-27 16:24] LABS: Bacteria,Urine 3+ (None Seen); Calcium Oxalate Crystals,Urine Present (None Seen)
== END | disposition home or self-care (01) ==
LOC: LABWHC1 09:34
PROVIDERS: ATTEND Nurse Practitioner Family
DX: N18.2 Chronic kidney disease, stage 2 (mild) (principal); D63.1 Anemia in chronic kidney disease; N39.0 Urinary tract infection, site not specified; R80.9 Proteinuria, unspecified; E55.9 Vitamin D deficiency, unspecified; N25.81 Secondary hyperparathyroidism of renal origin; M10.9 Gout, unspecified
CPT/HCPCS: 36415; 80053; 81001; 82043; 82306; 82570; 82728; 83540; 83550; 83735; 83970; 84100; 84550; 85025

== ENCOUNTER → 2024-10-24 | Outpatient (CLI) | payer MEDICARE, OTHER ==
[~2024-10-24] MED LIST changes: -IMMUNE GLOBULIN IV NR
[2024-10-24] MEDS: SODIUM CHLORIDE 0.9% 500 ML 500 ML in EMPTY BAG 1 BAG IV PRN (09:23)
[2024-10-24] MEDS: IMMUNE GLOBULIN IV NR (09:24)
[2024-10-24 09:40] VITALS: RESP 16; TEMP 97.6
[2024-10-24 09:47] VITALS: BP 101/62; PULSE 56
[2024-10-24 10:46] LABS: African American GFR (CKD) 42 (>60 ml/min/1.73 sqM); Anion Gap 11 mmol/L; Blood Urea Nitrogen 26 mg/dL (7-17); Calcium 9.5 mg/dL (8.4-10.2); Carbon Dioxide 24 mmol/L (22-30); Chloride 102 mmol/L (98-107); Glucose 188 mg/dL (74-99); Non-African American GFR(CKD) 37 (>60 ml/min/1.73 sqM); Potassium 4.6 mmol/L (3.5-5.1); Sodium 137 mmol/L (137-145)
[2024-10-24 14:03] LABS: African American GFR (CKD) 34 (>60 ml/min/1.73 sqM); Anion Gap 6 mmol/L; Blood Urea Nitrogen 24 mg/dL (7-17); Calcium 9.4 mg/dL (8.4-10.2); Carbon Dioxide 29 mmol/L (22-30); Chloride 101 mmol/L (98-107); Glucose 129 mg/dL (74-99); Non-African American GFR(CKD) 30 (>60 ml/min/1.73 sqM); Potassium 4.4 mmol/L (3.5-5.1); Sodium 136 mmol/L (137-145)
== END ==
LOC: PROCWHC3 08:57
PROVIDERS: ATTEND Psychiatry & Neurology Neurology
DX: G61.81 Chronic inflammatory demyelinating polyneuritis (principal)
CPT/HCPCS: 80048; 96365; 96366; J1642; J1459